=== PATIENT | male | born 1970 | race Caucasian/White ===

== ENCOUNTER 2017-11-06 17:53 | Inpatient (IN) ==
[2017-11-06] MEDS ORDERED: Isovue-370 500 ML INFUS..BTL IV ONE (18:11)
[2017-11-06 18:22] LABS: Basophils # 0.1 K/mcL (0.0-0.2); Basophils % 0.5 %; Eosinophils # 0.2 K/mcL (0.0-0.6); Eosinophils % 2.1 %; Hematocrit 40.6 % (37.5-50.1); Hemoglobin 13.7 g/dL (12.9-16.9); Immature Granulocytes % 0.3 % (0-4); Lymphocytes # 1.9 K/mcL (0.6-4.6); Lymphocytes % 17.9 %; Mean Corpuscular HGB Conc 33.7 g/dL (31.6-35.5); Mean Corpuscular Hemoglobin 30.7 pg (28.0-33.3); Mean Platelet Volume 9.1 fL (9.4-12.4); Monocytes # 0.8 K/mcL (0.0-1.3); Monocytes % 7.3 %; Neutrophils # 7.5 K/mcL (1.6-8.9); Platelet Count 423 K/mcL (140-400); Red Blood Count 4.46 M/mcL (4.19-5.50); Red Cell Distribution Width 11.9 % (11.5-14.5); Segmented Neutrophils % 71.9 %
--- NOTE | 2017-11-06 18:28 | Emergency Department Note ---
Disposition Clinical Impression: Chest pain Qualifiers: Chest pain type: unspecified Qualified Code(s): R07.9 - Chest pain, unspecified Dyspnea Qualifiers: Dyspnea type: unspecified Qualified Code(s): R06.00 - Dyspnea, unspecified Disposition: Still a Patient Condition: Good Referrals: Dali Fried CNP [Primary Care Provider] - Forms: ED Satisfaction Letter Chest Pain HPI - General Chief Complaint: ED Shortness of Breath/Dyspnea Stated Complaint: think I have a clot in my lungs Time Seen by Provider: 11/06/17 18:10 Source: patient Mode of arrival: EMS Limitations: no limitations Vital Signs Reviewed: Yes Nursing Notes Reviewed: Yes - History of Present Illness HPI Narrative: This is a 46 year-old male with 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 The pain began gradually and was mild at first, "like a pulled muscle." The pain has worsened since onset and about 3 hours ago patient became increasingly short of breath. He came in out of concern that his symptoms might be due to another blood clot. He reports a mild cough, productive of clear sputum. He denies any recent feer or leg pain/swelling. He says that he has been on Xarelto since being diagnosed with a PE 03/2016, and he takes it every day. Pt complaint: chest pain Onset (ago): day(s) (1) Duration: gradually worsening Onset: other (during light activity) Severity: moderate Severity scale (1-10): 8 Quality: aching Pain Radiation: none Improves with: nothing Worsens with: nothing Context: history of DVT/PE Associated symptoms: Reports: dyspnea, cough. Denies: nausea, vomiting, diaphoresis, syncope, palpitations, fever, leg swelling - Related Data Previous Rx's Medication Instructions Recorded Clindamycin [Cleocin] 300 mg PO Q8HR #21 capsule 01/08/15 Cyclobenzaprine [Flexeril] 10 mg PO TID PRN #15 tablet 03/16/16 Allergies Allergy/AdvReac Type Severity Reaction Status Date / Time No Known Allergies Allergy Verified 02/16/17 09:05 All systems ED: reviewed and negative except as stated. Constitutional: Denies: fever Cardiovascular: Reports: as per HPI, chest pain. Denies: palpitations, syncope Respiratory: Reports: cough, dyspnea. Denies: wheezes, hemoptysis Gastrointestinal: Denies: abdominal pain Musculoskeletal: Denies: back pain, neck pain Neurological: Denies: headache, weakness, numbness Chest Pain PMH - Past Medical History Medical history: Reports: arthritis, DVT, fibromyalgia, hypertension, pulmonary embolus Surgical history: Reports: cholecystectomy, herniorrhaphy Psychiatric history: Reports: depression - Social History Smoking Status: Never smoker Alcohol use: Reports: none Drug use: Reports: none Physical Exam - General Limitations: no limitations General appearance: alert, anxious, obese - Head Head exam: atraumatic, normocephalic - Eye Eye exam: Present: normal appearance - Neck Neck exam: Present: normal inspection - Chest Chest inspection: Absent: tenderness - Respiratory Respiratory exam: Present: normal lung sounds bilaterally. Absent: respiratory distress, wheezes - Cardiovascular Cardiovascular exam: Present: regular rate, normal rhythm, normal heart sounds - Abdominal Exam Abdominal exam: Present: soft, Non-Tender. Absent: distention - Extremities Exam Extremities exam: Present: normal inspection. Absent: calf tenderness - Neurological Exam Neurological exam: Present: alert, oriented X3. Absent: motor sensory deficit - Psychiatric Psychiatric exam: Present: normal affect, normal mood - Skin Skin exam: Present: warm, dry, intact Course Vital Signs Temperature 98.8 F 11/06/17 17:54 Pulse Rate 103 11/06/17 17:54 Respiratory Rate 22 11/06/17 17:54 Blood Pressure 162/78 11/06/17 17:54 O2 Sat by Pulse Oximetry 95 11/06/17 17:54 Temperature 98.8 F 11/06/17 17:58 Pulse Rate 92 11/06/17 18:30 Respiratory Rate 22 11/06/17 18:30 Blood Pressure 125/90 11/06/17 18:30 O2 Sat by Pulse Oximetry 96 11/06/17 18:30 Oxygen Delivery Oxygen Delivery Nasal Cannula Chest Pain - MDM Narrative Medical decision making narrative: 1899 - At shift change, I'm signing the case over to Dr. Kennedy with CT and most other diagnostics pending. - Lab Data Result diagrams: 11/06/17 18:04 Lab Results 11/06/17 11/06/17 Range/Units 18:04 18:04 WBC 10.5 (4.3-11.1) K/mcL RBC 4.46 (4.19-5.50) M/mcL Hgb 13.7 (12.9-16.9) g/dL Hct 40.6 (37.5-50.1) % MCV 91.0 (83.0-100.0) fL MCH 30.7 (28.0-33.3) pg MCHC 33.7 (31.6-35.5) g/dL RDW 11.9 (11.5-14.5) % Plt Count 423 H (140-400) K/mcL MPV 9.1 L (9.4-12.4) fL Immature Gran % 0.3 (0-4) % Seg Neutrophils % 71.9 % Lymphocytes % 17.9 % Monocytes % 7.3 % Eosinophils % 2.1 % Basophils % 0.5 % Neutrophils # 7.5 (1.6-8.9) K/mcL Lymphocytes # 1.9 (0.6-4.6) K/mcL Monocytes # 0.8 (0.0-1.3) K/mcL Eosinophils # 0.2 (0.0-0.6) K/mcL Basophils # 0.1 (0.0-0.2) K/mcL PT 13.9 H (9.4-12.1) Seconds INR 1.3 APTT 38.2 H (26.0-36.0) Seconds - EKG Data EKG attestation: Yes I reviewed and interpreted this EKG. EKG results narrative: Sinus tach EKG shows normal: sinus rhythm, axis Rate: tachycardia When compared to previous EKG there are: no significant changes (compared to ) Interpretation: nonspecific ST-T wave changes
[2017-11-06 18:34] LABS: INR 1.3; Prothrombin Time 13.9 Seconds (9.4-12.1)
[2017-11-06 18:37] LABS: Activated Partial Thrombo Time 38.2 Seconds (26.0-36.0)
[2017-11-06] MEDS ORDERED: *HR* FentaNYL (PF) 100 MCG/2 ML VIAL IVP ONE ×2 (18:48→20:20)
[2017-11-06 18:49] LABS: BUN/Creatinine Ratio 16 (6-26); Blood Urea Nitrogen 17 mg/dL (6-20); Calcium 9.5 mg/dL (8.6-10.3); Carbon Dioxide 27 mEq/L (23-29); Chloride 103 mEq/L (98-107); Glucose 147 mg/dL (70-105); Osmolality,Calculated 290 (280-300); Potassium 3.8 mEq/L (3.5-5.1); Sodium 138 mEq/L (136-145); Troponin I < 0.03 ng/mL (< 0.04); eGFR For African Americans > 60 (> 60); eGFR For Non-African Americans > 60 (> 60)
--- NOTE | 2017-11-06 20:09 | Emergency Department Note ---
Disposition Clinical Impression: Chest pain Qualifiers: Chest pain type: unspecified Qualified Code(s): R07.9 - Chest pain, unspecified Dyspnea Qualifiers: Dyspnea type: unspecified Qualified Code(s): R06.00 - Dyspnea, unspecified Disposition: Admitted As Inpatient Condition: Good Time of Disposition: 20:27 General Adult HPI - General Chief complaint: ED Shortness of Breath/Dyspnea Stated complaint: think I have a clot in my lungs Time Seen by Provider: 11/06/17 18:10 Source: patient Mode of arrival: EMS Limitations: no limitations Nursing Notes Reviewed: Yes Vital Signs Reviewed: Yes - History of Present Illness HPI Narrative: Patient was signed out by the prior provider. Please see their documentation for complete history and physical. Patient is a 46-year-old male with a history of pulmonary embolism on Xarelto since 2015 presents for evaluation of chest pain. Patient states symptom onset was around 3:30 this afternoon. Patient noted left-sided chest pain nonexertional without radiation. Patient reported difficulty breathing. Patient denies any aggravating or alleviating symptoms related the pain. At the time of signout the patient was rating it a CT angiogram of the chest. Patient states that he started to experience more dyspnea and chest pain upon returning from CT. Patient denies any history of heart attacks or ACS. Patient denies history of home oxygen use. Patient denies any cough. Patient denies any notable fevers. Pain Scale: 8 - Related Data Home Medications Medication Instructions Recorded Confirmed DULoxetine [Cymbalta] 60 mg PO DAILY 11/06/17 11/06/17 HYDROcodone/Acet 5/325 mg [[place] 1 tab PO Q6H 11/06/17 11/06/17 5-325 mg] Hydrochlorothiazide [Microzide] 12.5 mg PO DAILY 11/06/17 11/06/17 Lisinopril [Zestril] 20 mg PO DAILY 11/06/17 11/06/17 Nortriptyline HCl 50 mg PO DAILY 11/06/17 11/06/17 Pravastatin Sodium [Pravachol] 20 mg PO HS 11/06/17 11/06/17 Rivaroxaban [Xarelto] 20 mg PO DAILY 11/06/17 11/06/17 metFORMIN [Glucophage] 500 mg PO DAILY 11/06/17 11/06/17 Allergies Allergy/AdvReac Type Severity Reaction Status Date / Time No Known Allergies Allergy Verified 11/06/17 20:33 Constitutional: Denies: fever Cardiovascular: Reports: as per HPI, chest pain. Denies: palpitations, syncope Respiratory: Reports: cough, dyspnea. Denies: wheezes, hemoptysis Gastrointestinal: Denies: abdominal pain Musculoskeletal: Denies: back pain, neck pain Neurological: Denies: headache, weakness, numbness Past Medical History - Past Medical History Medical history: Reports: arthritis, DVT, fibromyalgia, hypertension, pulmonary embolus Surgical history: Reports: cholecystectomy, herniorrhaphy Psychiatric history: Reports: depression - Social History Smoking Status: Never smoker Smokeless Tobacco Status: No Alcohol use: Reports: none Drug use: Reports: none Physical Exam - General Limitations: no limitations General appearance: alert, anxious, obese - Head Head exam: atraumatic, normocephalic, normal inspection - Eye Eye exam: Present: normal appearance - ENT ENT exam: normal exam, normal oropharynx, mucous membranes moist - Neck Neck exam: Present: normal inspection - Chest Chest inspection: Present: normal inspection, symmetric chest wall rise. Absent : tenderness - Respiratory Respiratory exam: Present: other (Diffusely diminished lung sounds throughout). Absent: respiratory distress - Cardiovascular Cardiovascular exam: Present: normal rhythm, tachycardia. Absent: systolic murmur - Abdominal Exam Abdominal exam: Present: soft, Non-Tender - Extremities Exam Extremities exam: Present: normal inspection, pedal edema (trace) - Back Exam Back exam: Present: normal inspection - Neurological Exam Neurological exam: Present: alert, oriented X3, CN II-XII intact - Skin Skin exam: Present: warm, dry, intact, normal color Course Course Narrative: Patient seen and examined. Patient appears be quite anxious tachypnea. Patient also is tachycardic. Patient CTA of the chest shows no evidence of central pulmonary embolism however the patient study was suboptimal. Patient is on Xarelto. Patient will get a repeat EKG. Patient will likely be admitted to the hospital service for chest pain ACS rule out and further testing for pulmonary embolism. - Reevaluation(s) Reevaluation #1: Patient received 2 nitro and pain decreased to 10-8/10. Repeat EKG is relatively similar. Time: 20:46 Reevaluation #2: Patient is not able to lie flat for his VQ scan. Time: 21:32 Reevaluation #3: Patient seen and examined. Patient's aware of plan of care. Patient's continued be tachycardic. Patient is on Xarelto so secondary anticoagulation was not ordered. Time: 22:32 Vital Signs Temperature 98.8 F 11/06/17 17:54 Pulse Rate 103 11/06/17 17:54 Respiratory Rate 22 11/06/17 17:54 Blood Pressure 162/78 11/06/17 17:54 O2 Sat by Pulse Oximetry 95 11/06/17 17:54 Temperature 98.8 F 11/06/17 17:58 Pulse Rate 125 11/06/17 22:07 Respiratory Rate 25 11/06/17 22:07 Blood Pressure 103/85 11/06/17 22:07 O2 Sat by Pulse Oximetry 97 11/06/17 22:07 Oxygen Delivery Oxygen Delivery Nasal Cannula Medical Decision Making - MDM Narrative Medical decision making narrative: Patient was signed out by the prior provider. Patient is a 46-year-old history of PE in the past on Xarelto. Patient presented with chest pain and dyspnea. Patient CTA of the chest was suboptimal. Patient did not have a central PE patient states that he is continued to be compliant with his Xarelto. Attempted VQ scan over the patient cannot lay flat for that period of time to the study obtained. Patient remained persistently tachycardic. Patient was given nitroglycerin with only mild relief in the pain. Patient was given fentanyl. Patient would likely benefit from observation with serial troponins. Patient was not given any additional anticoagulation as he is on Xarelto. Patient is agreeable with plan of care. Patient's serial EKGs show no acute significant changes. - Lab Data Lab results reviewed: Yes I reviewed the patient's lab results. Result diagrams: 11/06/17 18:04 11/06/17 18:04 Lab Results 11/06/17 11/06/17 11/06/17 Range/Units 18:04 18:04 18:04 WBC 10.5 (4.3-11.1) K/mcL RBC 4.46 (4.19-5.50) M/mcL Hgb 13.7 (12.9-16.9) g/dL Hct 40.6 (37.5-50.1) % MCV 91.0 (83.0-100.0) fL MCH 30.7 (28.0-33.3) pg MCHC 33.7 (31.6-35.5) g/dL RDW 11.9 (11.5-14.5) % Plt Count 423 H (140-400) K/mcL MPV 9.1 L (9.4-12.4) fL Immature Gran % 0.3 (0-4) % Seg Neutrophils % 71.9 % Lymphocytes % 17.9 % Monocytes % 7.3 % Eosinophils % 2.1 % Basophils % 0.5 % Neutrophils # 7.5 (1.6-8.9) K/mcL Lymphocytes # 1.9 (0.6-4.6) K/mcL Monocytes # 0.8 (0.0-1.3) K/mcL Eosinophils # 0.2 (0.0-0.6) K/mcL Basophils # 0.1 (0.0-0.2) K/mcL PT 13.9 H (9.4-12.1) Seconds INR 1.3 APTT 38.2 H (26.0-36.0) Seconds Sample Site ABG pH (7.32-7.45) pH Units ABG pCO2 (35-45) mmHg ABG pO2 (85-104) mmHg ABG HCO3 (21-27) mEq/L ABG Total CO2 (20-26) mEq/L ABG O2 Saturation (95-98) % ABG Base Excess (-2 to 3) mEq/L Angel Test O2 Delivery Device Inspired O2 (1-15=lpm [id number]=%) Sodium 138 (136-145) mEq/L Potassium 3.8 (3.5-5.1) mEq/L Chloride 103 (98-107) mEq/L Carbon Dioxide 27 (23-29) mEq/L BUN 17 (6-20) mg/dL Creatinine 1.06 (0.70-1.30) mg/dL Est GFR ( Amer) > 60 (> 60) Est GFR (Non-Af Amer) > 60 (> 60) BUN/Creatinine Ratio 16 (6-26) Glucose 147 H (70-105) mg/dL Calculated Osmolality 290 (280-300) Lactic Acid (0.5-2.2) mmol/L Calcium 9.5 (8.6-10.3) mg/dL Troponin I < 0.03 (< 0.04) ng/mL B-Natriuretic Peptide (Less than 100) pg/mL 11/06/17 11/06/17 11/06/17 Range/Units 18:04 18:34 21:50 WBC (4.3-11.1) K/mcL RBC (4.19-5.50) M/mcL Hgb (12.9-16.9) g/dL Hct (37.5-50.1) % MCV (83.0-100.0) fL MCH (28.0-33.3) pg MCHC (31.6-35.5) g/dL RDW (11.5-14.5) % Plt Count (140-400) K/mcL MPV (9.4-12.4) fL Immature Gran % (0-4) % Seg Neutrophils % % Lymphocytes % % Monocytes % % Eosinophils % % Basophils % % Neutrophils # (1.6-8.9) K/mcL Lymphocytes # (0.6-4.6) K/mcL Monocytes # (0.0-1.3) K/mcL Eosinophils # (0.0-0.6) K/mcL Basophils # (0.0-0.2) K/mcL PT (9.4-12.1) Seconds INR APTT (26.0-36.0) Seconds Sample Site L Radial ABG pH 7.35 (7.32-7.45) pH Units ABG pCO2 38 (35-45) mmHg ABG pO2 75 L (85-104) mmHg ABG HCO3 21 (21-27) mEq/L ABG Total CO2 22 (20-26) mEq/L ABG O2 Saturation 94 L (95-98) % ABG Base Excess -4 L (-2 to 3) mEq/L Angel Test Positive O2 Delivery Device Cannula Inspired O2 4.0 (1-15=lpm [id number]=%) Sodium (136-145) mEq/L Potassium (3.5-5.1) mEq/L Chloride (98-107) mEq/L Carbon Dioxide (23-29) mEq/L BUN (6-20) mg/dL Creatinine (0.70-1.30) mg/dL Est GFR ( Amer) (> 60) Est GFR (Non-Af Amer) (> 60) BUN/Creatinine Ratio (6-26) Glucose (70-105) mg/dL Calculated Osmolality (280-300) Lactic Acid 1.2 (0.5-2.2) mmol/L Calcium (8.6-10.3) mg/dL Troponin I (< 0.04) ng/mL B-Natriuretic Peptide 49 (Less than 100) pg/mL - Radiology Data Radiology results reviewed: Yes I reviewed the patient's radiology results. Chest CTA 11/06/17 18:11 IMPRESSION: Examination is significantly limited as result suboptimal contrast bolus, despite repeat acquisition. No central pulmonary embolism identified. No convincing evidence for right heart strain or pulmonary infarction. If there is persistent clinical suspicion for PE, further evaluation with V/Q scan can be considered as clinically indicated. Small to moderate left pleural effusion with adjacent atelectasis. D/ / Tesfaye Moore MD / Tesfaye Moore MD Interpreting Provider: Tesfaye Moore MD - EKG Data EKG #1 EKG attestation: Yes I reviewed and interpreted this EKG. EKG shows normal: sinus rhythm Rate: tachycardia Rhythm: NSR [place]/QRS: normal Interpretation: no acute changes, nonspecific ST-T wave changes EKG #2 EKG attestation: Yes I reviewed and interpreted this EKG. EKG shows normal: sinus rhythm Rate: tachycardia [place]/QRS: normal ST segment depression in: v4 Interpretation: no acute changes, nonspecific ST-T wave changes S.B.AValentina - Toby.B.ATravRTrav Situation: Demographics Background: Presenting Complaint Assessment: Vital Signs, Course and respsone to treatment, Patient/Family Expectation Recommendation: Barrier(s) to disposition, Recommendation based on pending studies, treatments, or consults S.B.AValentina Report Given to: Dr. Juan Manuel Kirby Repor Time: 22:06
[2017-11-06] MEDS ORDERED: Aspirin 81 MG TAB.CHEW PO ONE (20:22)
[2017-11-06] MEDS ORDERED: 0.9 % Sodium Chloride 1,000 ML IVC ONE (20:22)
[2017-11-06] MEDS ORDERED: Nitroglycerin 0.4 MG TAB.SUBL SL ONE (20:22)
[2017-11-06] MEDS: Nitroglycerin 0.4 MG TAB.SUBL SL PRN ×2 (20:29→20:37)
[2017-11-06 21:53] LABS: ABG Base Excess -4 mEq/L (-2 to 3); ABG HCO3 21 mEq/L (21-27); ABG Oxygen Saturation 94 % (95-98); ABG PCO2 38 mmHg (35-45); ABG PH 7.35 pH Units (7.32-7.45); ABG PO2 75 mmHg (85-104); ABG TCO2 22 mEq/L (20-26)
--- NOTE | 2017-11-06 22:23 | Emergency Department Note ---
Disposition Clinical Impression: Chest pain Qualifiers: Chest pain type: unspecified Qualified Code(s): R07.9 - Chest pain, unspecified Dyspnea Qualifiers: Dyspnea type: unspecified Qualified Code(s): R06.00 - Dyspnea, unspecified Disposition: Admitted As Inpatient Condition: Good Referrals: Dali Fried CNP [Primary Care Provider] - Forms: ED Satisfaction Letter General Adult HPI - General Chief complaint: ED Shortness of Breath/Dyspnea Stated complaint: think I have a clot in my lungs Time Seen by Provider: 11/06/17 18:10 Source: patient Mode of arrival: EMS Limitations: no limitations Nursing Notes Reviewed: Yes Vital Signs Reviewed: Yes - History of Present Illness Pain Scale: 8 - Related Data Home Medications Medication Instructions Recorded Confirmed DULoxetine [Cymbalta] 60 mg PO DAILY 11/06/17 11/06/17 HYDROcodone/Acet 5/325 mg [[place] 1 tab PO Q6H 11/06/17 11/06/17 5-325 mg] Hydrochlorothiazide [Microzide] 12.5 mg PO DAILY 11/06/17 11/06/17 Lisinopril [Zestril] 20 mg PO DAILY 11/06/17 11/06/17 Nortriptyline HCl 50 mg PO DAILY 11/06/17 11/06/17 Pravastatin Sodium [Pravachol] 20 mg PO HS 11/06/17 11/06/17 Rivaroxaban [Xarelto] 20 mg PO DAILY 11/06/17 11/06/17 metFORMIN [Glucophage] 500 mg PO DAILY 11/06/17 11/06/17 Allergies Allergy/AdvReac Type Severity Reaction Status Date / Time No Known Allergies Allergy Verified 11/06/17 20:33 Constitutional: Denies: fever Cardiovascular: Reports: as per HPI, chest pain. Denies: palpitations, syncope Respiratory: Reports: cough, dyspnea. Denies: wheezes, hemoptysis Gastrointestinal: Denies: abdominal pain Musculoskeletal: Denies: back pain, neck pain Neurological: Denies: headache, weakness, numbness Past Medical History - Past Medical History Medical history: Reports: arthritis, DVT, fibromyalgia, hypertension, pulmonary embolus Surgical history: Reports: cholecystectomy, herniorrhaphy Psychiatric history: Reports: depression - Social History Smoking Status: Never smoker Smokeless Tobacco Status: No Alcohol use: Reports: none Drug use: Reports: none Physical Exam - General Limitations: no limitations General appearance: alert, anxious, obese Course Vital Signs Temperature 98.8 F 11/06/17 17:54 Pulse Rate 103 11/06/17 17:54 Respiratory Rate 22 11/06/17 17:54 Blood Pressure 162/78 11/06/17 17:54 O2 Sat by Pulse Oximetry 95 11/06/17 17:54 Temperature 98.8 F 11/06/17 17:58 Pulse Rate 125 11/06/17 22:07 Respiratory Rate 25 11/06/17 22:07 Blood Pressure 103/85 11/06/17 22:07 O2 Sat by Pulse Oximetry 97 11/06/17 22:07 Oxygen Delivery Oxygen Delivery Nasal Cannula Medical Decision Making - Lab Data Result diagrams: 11/06/17 18:04 11/06/17 18:04 Lab Results 11/06/17 11/06/17 11/06/17 Range/Units 18:04 18:04 18:04 WBC 10.5 (4.3-11.1) K/mcL RBC 4.46 (4.19-5.50) M/mcL Hgb 13.7 (12.9-16.9) g/dL Hct 40.6 (37.5-50.1) % MCV 91.0 (83.0-100.0) fL MCH 30.7 (28.0-33.3) pg MCHC 33.7 (31.6-35.5) g/dL RDW 11.9 (11.5-14.5) % Plt Count 423 H (140-400) K/mcL MPV 9.1 L (9.4-12.4) fL Immature Gran % 0.3 (0-4) % Seg Neutrophils % 71.9 % Lymphocytes % 17.9 % Monocytes % 7.3 % Eosinophils % 2.1 % Basophils % 0.5 % Neutrophils # 7.5 (1.6-8.9) K/mcL Lymphocytes # 1.9 (0.6-4.6) K/mcL Monocytes # 0.8 (0.0-1.3) K/mcL Eosinophils # 0.2 (0.0-0.6) K/mcL Basophils # 0.1 (0.0-0.2) K/mcL PT 13.9 H (9.4-12.1) Seconds INR 1.3 APTT 38.2 H (26.0-36.0) Seconds Sample Site ABG pH (7.32-7.45) pH Units ABG pCO2 (35-45) mmHg ABG pO2 (85-104) mmHg ABG HCO3 (21-27) mEq/L ABG Total CO2 (20-26) mEq/L ABG O2 Saturation (95-98) % ABG Base Excess (-2 to 3) mEq/L Angel Test O2 Delivery Device Inspired O2 (1-15=lpm [id number]=%) Sodium 138 (136-145) mEq/L Potassium 3.8 (3.5-5.1) mEq/L Chloride 103 (98-107) mEq/L Carbon Dioxide 27 (23-29) mEq/L BUN 17 (6-20) mg/dL Creatinine 1.06 (0.70-1.30) mg/dL Est GFR ( Amer) > 60 (> 60) Est GFR (Non-Af Amer) > 60 (> 60) BUN/Creatinine Ratio 16 (6-26) Glucose 147 H (70-105) mg/dL Calculated Osmolality 290 (280-300) Lactic Acid (0.5-2.2) mmol/L Calcium 9.5 (8.6-10.3) mg/dL Troponin I < 0.03 (< 0.04) ng/mL B-Natriuretic Peptide (Less than 100) pg/mL 11/06/17 11/06/17 11/06/17 Range/Units 18:04 18:34 21:50 WBC (4.3-11.1) K/mcL RBC (4.19-5.50) M/mcL Hgb (12.9-16.9) g/dL Hct (37.5-50.1) % MCV (83.0-100.0) fL MCH (28.0-33.3) pg MCHC (31.6-35.5) g/dL RDW (11.5-14.5) % Plt Count (140-400) K/mcL MPV (9.4-12.4) fL Immature Gran % (0-4) % Seg Neutrophils % % Lymphocytes % % Monocytes % % Eosinophils % % Basophils % % Neutrophils # (1.6-8.9) K/mcL Lymphocytes # (0.6-4.6) K/mcL Monocytes # (0.0-1.3) K/mcL Eosinophils # (0.0-0.6) K/mcL Basophils # (0.0-0.2) K/mcL PT (9.4-12.1) Seconds INR APTT (26.0-36.0) Seconds Sample Site L Radial ABG pH 7.35 (7.32-7.45) pH Units ABG pCO2 38 (35-45) mmHg ABG pO2 75 L (85-104) mmHg ABG HCO3 21 (21-27) mEq/L ABG Total CO2 22 (20-26) mEq/L ABG O2 Saturation 94 L (95-98) % ABG Base Excess -4 L (-2 to 3) mEq/L Angel Test Positive O2 Delivery Device Cannula Inspired O2 4.0 (1-15=lpm [id number]=%) Sodium (136-145) mEq/L Potassium (3.5-5.1) mEq/L Chloride (98-107) mEq/L Carbon Dioxide (23-29) mEq/L BUN (6-20) mg/dL Creatinine (0.70-1.30) mg/dL Est GFR ( Amer) (> 60) Est GFR (Non-Af Amer) (> 60) BUN/Creatinine Ratio (6-26) Glucose (70-105) mg/dL Calculated Osmolality (280-300) Lactic Acid 1.2 (0.5-2.2) mmol/L Calcium (8.6-10.3) mg/dL Troponin I (< 0.04) ng/mL B-Natriuretic Peptide 49 (Less than 100) pg/mL Attestation Statement - Attestation Attestation: I, Nate Kennedy MD, personally evaluated this patient and discussed their management with the resident physician. I reviewed the resident's note and agree with the documented findings, medical decision making, and plan of care. This patient was signed out at shift change from Dr. Florian. Please refer to his note for complete details of the history and physical examination. Patient is a morbidly obese male with a history of pulmonary embolism in the past. He is on Xarelto. He presents complaining of onset of some left upper chest pain about 3 PM today followed by increased shortness of breath. No cough or fever. Patient states this feels similar to when he had his pulmonary embolism in the past. On examination patient is a morbidly obese male in no acute distress. He does appear to be in some discomfort and is tachypneic. There is no cyanosis or diaphoresis. Chest is nontender to palpation. Breath sounds are clear and equal bilaterally. Heart regular with a mild tachycardia. Labs reviewed. CTA of the chest showed: Examination is significantly limited as result suboptimal contrast bolus, despite repeat acquisition. No central pulmonary embolism identified. No convincing evidence for right heart strain or pulmonary infarction. If there is persistent clinical suspicion for PE, further evaluation with V/Q scan can be considered as clinically indicated. Small to moderate left pleural effusion with adjacent atelectasis. We did attempt to obtain a VQ scan however nuclear medicine reported patient was totally unable to lie flat for the exam and they were unable to obtain a VQ scan. The hospitalist, Dr. Zambrano, was consulted and accepted admission of the patient.
[2017-11-06] MEDS ORDERED: D5% in Water 1,000 ML IVC PRN (23:06)
[2017-11-06] MEDS ORDERED: Dextrose Gel 15 GM/37.5 ML TUBE PO PRN ×2 (23:06)
[2017-11-06] MEDS ORDERED: *HR* Dextrose 50 % in Water (Syg) 50 ML SYRINGE IVP PRN (23:06)
--- NOTE | 2017-11-06 23:12 | Internal Med History&Physical ---
Date of Encounter: 11/07/17 Time of Encounter: 23:10 Internal Medicine - H&P: HPI Chief complaint: Chest pain Admitted From: Emergency Dept Plans for Post Hospital Care: Home History of present illness: Mr. Mckinley is a 46 year old male with history of diabetes, hypertension, morbid obesity, DVT and PE on Xarelto, chronic pain due to fibromyalgia, arthritis presents with left-sided chest pain that started earlier this evening. He feels like it is pain that he had Past PE. Describes it as squeezing. He has become increasingly short of breath. Chest pain is not radiating. He says he was with his nephew in the gym as he is trying hard to lose weight. He did about .2 miles on a treadmill then got on a stationary bike and did half a mile. He had no chest pain then. He went home and was doing laundry and then the chest pain started. He has not missed his Xarelto. In the ED was noted to be tachycardic. O2 sats were in the low 90s and was put on supplemental oxygen. EKG showed sinus tachycardia but no acute ST or T-wave changes and troponins were not elevated. Denies any fever, chills, nausea, vomiting, abdominal pain, diarrhea, constipation, urinary symptoms, or neurological symptoms. The patient received fentanyl pushes as well as aspirin 324 mg and sublingual nitroglycerin. A CTA of the chest was done which was suboptimal study. He had a DVT in 2000 and in 2016 had a PE which required thrombolysis at [facility]. Past Med Surg Social Fam HX - Past Medical History Medical history: arthritis, DVT, fibromyalgia, hypertension, pulmonary embolus Psychiatric history: depression - Past Surgical History Surgical History: cholecystectomy, herniorrhaphy Additional surgical history: catherization to remove blood clot - Social History Smoking Status: Never smoker Smokeless Tobacco Status: No Alcohol use: none Drug use: none - Family History Mother Hx Family Cardiac Disorders: Yes (CHF) Hx Family Endocrine Disorder: Yes (Type 2 diabetes) Father Hx Family Cardiac Disorders: Yes (CHF) Hx Family Endocrine Disorder: Yes (Type 2 diabetic) Internal Medicine - H&P: Meds DULoxetine [Cymbalta] 60 mg PO DAILY 11/06/17 [History] HYDROcodone/Acet 5/325 mg [Crooks 5-325 mg] 1 tab PO Q6H 11/06/17 [History] Hydrochlorothiazide [Microzide] 12.5 mg PO DAILY 11/06/17 [History] Lisinopril [Zestril] 20 mg PO DAILY 11/06/17 [History] Nortriptyline HCl 50 mg PO DAILY 11/06/17 [History] Pravastatin Sodium [Pravachol] 20 mg PO HS 11/06/17 [History] Rivaroxaban [Xarelto] 20 mg PO DAILY 11/06/17 [History] metFORMIN [Glucophage] 500 mg PO DAILY 11/06/17 [History] 3 Allergy/AdvReac Type Severity Reaction Status Date / Time No Known Allergies Allergy Verified 11/06/17 20:33 All Systems PM: A 10-system review of systems was performed and is negative for pertinent findings except as documented above in the HPI. Review of systems: All systems reviewed are negative except for as mentioned above - Constitutional Vitals: Temp Pulse Resp BP Pulse Ox 98.8 F 127 20 103/87 96 11/06/17 17:58 11/06/17 22:46 11/06/17 22:46 11/06/17 22:46 11/06/17 22:46 Exam: GEN: NAD HEENT: AT, NC, No cyanosis, oral mucosa is moist, No JVD Lymphatics: No lymphadenoapthy Eyes: Extrocular muscles intact, anicteric CVS: Tachycardic. S1, S2, No m/r/g RESP: CTAB ABD: Soft, NT, ND, +BS EXT: No edema, No rashes, 2+ DP NEURO: Nonfocal, CN II-XII intact, No focal motor or sensory deficits Psych: Cooperative, Not anxious or depressed Internal Med - H&P Results - Labs CBC & Chem 7: 11/06/17 18:04 11/06/17 18:04 - Assessment and plan (1) Chest pain Current Visit: Yes Status: Acute Assessment and plan: Admit to hospitalist. We will place on telemetry. Trend cardiac enzymes. We will put in for stress test tomorrow. After midnight. Check A1c and lipid panel. The patient is ready been given aspirin 324 mg. Sublingual nitroglycerin when necessary. Qualifiers: Chest pain type: unspecified Qualified Code(s): R07.9 - Chest pain, unspecified (2) Tachycardia Current Visit: Yes Status: Acute Assessment and plan: This is associated with chest pain, shortness of breath, mild hypoxia. The worry is a possible PE although the patient is on Xarelto, however the patient is obese and the concern is that dose may not be enough given his weight. For now CTA could not rule out a PE as it was suboptimal. Will check D dimers and if it comes back elevated we will check a VQ scan and lower extremity Dopplers. Will put the patient empirically on 1mg/kg of lovenox BID till we have his work up completed. Hold Xarelto for now. Patient maybe better suited with coumadin in the future. Check an echocardiogram. Could be secondary to pain and anxiety. Will try to have better pain control and we will give him a dose of 1 mg of Ativan. This is copied from [employer]: In patients with a BMI >40 kg/m2 or weight >120 kg, the International Society on Thrombosis and Haemostasis (ISTH) 2016 guideline suggests avoiding the use of rivaroxaban (and other direct oral anticoagulants [DOACs]) due to the lack of clinical data in this population (ISTH [Nitish 2016]). A 2017 review concluded, based on pharmacokinetic data, that for individuals with a BMI >40 kg /m2 (or weight >120 kg), rivaroxaban may be used and dosage adjustment is not necessary; however, studies were not powered to address outcomes. If used in a patient with a BMI >40 kg/m2 or weight >120 kg, ISTH suggests measuring peak and trough levels using an anti-factor Xa assay or mass spectrometry. If drug level is below the expected range, ISTH suggests changing to a vitamin K antagonist rather than adjusting the dose of rivaroxaban. (3) Dyspnea Current Visit: Yes Status: Acute Assessment and plan: As above Qualifiers: Dyspnea type: unspecified Qualified Code(s): R06.00 - Dyspnea, unspecified (4) H/O deep venous thrombosis Current Visit: Yes Status: Acute Assessment and plan: hold Xarelto for now. Check D dimers as above. start therapeutic lovenox (5) Diabetes mellitus Current Visit: Yes Status: Acute Assessment and plan: We will place patient on insulin size scale. Accu-Cheks. Qualifiers: Diabetes mellitus type: type 2 Diabetes mellitus ferry terminal agent insulin use: without ferry terminal agent use Diabetes mellitus complication status: without complication Qualified Code(s): E11.9 - Type 2 diabetes mellitus without complications (6) Hypertension Current Visit: Yes Status: Acute Assessment and plan: Resume home antihypertensives. Qualifiers: Hypertension type: essential hypertension Qualified Code(s): I10 - Essential (primary) hypertension (7) DVT prophylaxis Current Visit: Yes Status: Acute Assessment and plan: lovenox - Time Spent With Patient Total time spent is greater than 50% in coordination of care (as documented) at patient's floor/unit and/or counseling patient:
[2017-11-06] MEDS ORDERED: *HR* LORazepam 2 MG/ML VIAL IVP ONE (23:13)
[2017-11-06] MEDS ORDERED: Acetaminophen 325 MG TABLET PO PRN (23:16)
[2017-11-06] MEDS ORDERED: Naloxone 0.4 MG/ML INJ IVP PRN (23:16)
[2017-11-07] MEDS ORDERED: *HR* FentaNYL (PF) 100 MCG/2 ML VIAL IVP ONE (01:18)
[2017-11-07] MEDS: Insulin LISPRO 300 UNITS/3 ML VIAL SQ SCH ×5 (01:46→22:21)
[2017-11-07] MEDS: *HR* Enoxaparin 100 MG/ML SYRINGE SQ SCH ×2 (01:52→15:20)
[2017-11-07] MEDS ORDERED: Ketorolac 30 MG/ML VIAL IVP ONE (03:56)
--- NOTE | 2017-11-07 04:44 | Event Note ---
Date of Encounter: 11/07/17 Time of Encounter: 04:41 D-dimers are elevated. I have elected to cancel his stress test for now and treat him as a PE until proven otherwise. Pending V/Q and LE dopplers. Patient continues to be tachycardic and short of breath needing O2. He also has a temp of 100.7 but no signs of an infection. Temp could be from a DVT/PE. Will add a UA, CXR, Blood cultures. His CTA didnt show infiltrate, but showed a moderate left pleural effusion. Didnt diurese because the patient is starting to show signs of hypotension. I actually ordered him a bolus for now and start some hydration since he received some contrast earlier. A stress test can be ordered for Thursday if PE is ruled out. A V/Q may not be the best study for him given his weight and he may need a repeat of CTA in a couple of days if a V/Q is not diagnostic. No abx ordered for now as there is no source. Low threshold to starting abx as I believe the patient is showing signs of a septic picture now.
[2017-11-07] MEDS ORDERED: 0.9 % Sodium Chloride 1,000 ML IVC SCH (04:45)
[2017-11-07 05:12] LABS: Basophils % 0.2 %
[2017-11-07 05:14] LABS: Basophils # 0.1 K/mcL (0.0-0.2); Hematocrit 41.7 % (37.5-50.1); Hemoglobin 14.2 g/dL (12.9-16.9); Immature Granulocytes % 0.4 % (0-4); Lymphocytes % 3.6 %; Mean Corpuscular HGB Conc 34.1 g/dL (31.6-35.5); Mean Corpuscular Hemoglobin 30.6 pg (28.0-33.3); Mean Corpuscular Volume 89.9 fL (83.0-100.0); Monocytes # 1.9 K/mcL (0.0-1.3); Monocytes % 6.9 %; Neutrophils # 24.4 K/mcL (1.6-8.9); Platelet Count 443 K/mcL (140-400); Red Blood Count 4.64 M/mcL (4.19-5.50); Red Cell Distribution Width 12.2 % (11.5-14.5); Segmented Neutrophils % 88.9 %
[2017-11-07 05:32] LABS: Platelet Estimate Increased (Normal)
[2017-11-07 05:41] LABS: Chol/HDL Ratio 4.4 (0-4.9); Magnesium 1.8 mg/dL (1.6-2.6); Potassium 4.8 mEq/L (3.5-5.1)
[2017-11-07 05:44] LABS: Thyroid Stimulating Hormone 2.649 mcIU/mL (0.340-5.600)
[2017-11-07] MEDS ORDERED: 0.9 % Sodium Chloride 1,000 ML IVC ONE (06:40)
[2017-11-07 07:11] LABS: Albumin 3.8 g/dL (3.5-5.7); Albumin/Globulin Ratio 1.2 (1.1-2.2); Bilirubin,Direct 0.2 mg/dL (0.0-0.2); Bilirubin,Indirect 0.9 mg/dL (0.0-1.2); Bilirubin,Total 1.1 mg/dL (0.3-1.0); Globulin 3.3 g/dL (2.4-3.5); Total Protein 7.1 g/dL (6.4-8.9)
[2017-11-07] MEDS ORDERED: Piperacillin/Tazobactam 4.5 GM in 0.9 % Sodium Chloride Mini Bag 100 ML IVPB ONE (07:41)
[2017-11-07] MEDS ORDERED: Dextrose Gel 15 GM/37.5 ML TUBE PO PRN ×2 (07:42)
[2017-11-07] MEDS ORDERED: D5% in Water 1,000 ML IVC PRN (07:42)
[2017-11-07] MEDS ORDERED: *HR* Dextrose 50 % in Water (Syg) 50 ML SYRINGE IVP PRN (07:42)
--- NOTE | 2017-11-07 07:54 | Internal Med Progress Note ---
Date of Encounter: 11/07/17 Time of Encounter: 07:45 - Assessment and plan (1) Sepsis Current Visit: Yes Status: Acute Assessment and plan: , source unmkown, with leukocytosis, fever and tachycardia, hypotension, BC UA CXR josephine dey vancomycina nd zosyn Qualifiers: Sepsis type: sepsis due to unspecified organism Qualified Code(s): A41.9 - Sepsis, unspecified organism (2) Acute and chronic respiratory failure with hypoxia Current Visit: Yes Status: Acute Assessment and plan: Hypoxia RR 25, on 5 L NC, patient has JUAN, but mnot on CPAP due to intolerance, may need CPAP at night (3) Morbid obesity Current Visit: Yes Status: Chronic (4) ARF (acute renal failure) Current Visit: Yes Status: Acute Assessment and plan: from sepsis , on IVF Qualifiers: Acute renal failure type: with other specified pathological lesion Qualified Code(s): N17.8 - Other acute kidney failure (5) Chest pain Current Visit: Yes Status: Acute Assessment and plan: follow up trop, TTE, stress test after sepsis resolves Qualifiers: Chest pain type: unspecified Qualified Code(s): R07.9 - Chest pain, unspecified (6) H/O deep venous thrombosis Current Visit: Yes Status: Chronic Assessment and plan: elevated d-dimer, CTA negative for central PE, continue lovenox for now, he was on Xarelto at home. pending duplex of legs, if his DVT is positive, then consider change to Coumadin due to his BMI (7) Diabetes mellitus Current Visit: Yes Status: Acute Assessment and plan: continue home meds Qualifiers: Diabetes mellitus type: type 2 Diabetes mellitus fci insulin use: without intermediate frame tender use Diabetes mellitus complication status: without complication Qualified Code(s): E11.9 - Type 2 diabetes mellitus without complications (8) Hypertension Current Visit: Yes Status: Acute Assessment and plan: hold home meds fir sepsis Qualifiers: Hypertension type: essential hypertension Qualified Code(s): I10 - Essential (primary) hypertension (9) DVT prophylaxis Current Visit: Yes Status: Acute Assessment and plan: on lovenox - Time Spent With Patient Total time spent is greater than 50% in coordination of care (as documented) at patient's floor/unit and/or counseling patient: Greater than 35 minutes - Subjective Interval history: Mr. Mckinley is a 46 year old male with history of diabetes, hypertension, morbid obesity, DVT and PE on Xarelto, chronic pain due to fibromyalgia, arthritis presents with left-sided chest pain that started earlier this evening. He feels like it is pain that he had Past PE. Describes it as squeezing. He has become increasingly short of breath. pol[place] was admitted for on 11/06, chest pain, negative trop and EKG, but elevated D-dmier, CTA was negative for central PE. ON patient developed fever and leukocytosis, septic with hypotension, hypoxia, ARF. 1. Sepsis, source unknown, will obtain 2 sets of cultute, UA and CXR, start broad coerage of ATB with Vanco and zosyn, hold BP meds 2. Acute hypolxic respiratory failure requiring 5 L NC Sat 92% 3. ARF Cr 1.85 on IVF, no NSAIDs 4. morbid obesity 5. hx of PE, pending duplex, contineu lovenox bridge 6. fibromyagia 7. chest pain - Constitutional Vitals: Temp Pulse Resp BP Pulse Ox 101.8 F H 92 19 131/105 99 11/07/17 07:40 11/07/17 07:40 11/07/17 07:40 11/07/17 07:40 11/07/17 07:40 General appearance: Present: mild distress, A&O X 3, morbidly obese, obese, answers questions appropriately Exam: CONSTITUTIONAL: patient appears as an age appropriate male in no acute distress. EYES Clear sclerae, bilateral pupils are equal, reactive to light. EMOI. RESPIRATORY: No accessory muscle use, bilateral clear to auscultation, no wheezing, no crackles/rales. CARDIOVASCULAR: Regular heart rate, normal S1 and S2, no murmurs GASTROINTESTINAL: bowel sounds present, soft, no tenderness. MUSCULOSKELETAL: Joints in normal range of motion, no clubbing, + edema, no cyanosis. Bilateral peripheral pulses 2+. NEUROLOGIC: CN II to XII are grossly intact, no focal neurological deficit. Internal Medicine: Result - Labs CBC & Chem 7: 11/07/17 04:58 11/07/17 04:58 Labs: Short CBC 11/07/17 Range/Units 04:58 WBC 27.4 H D (4.3-11.1) K/mcL Hgb 14.2 (12.9-16.9) g/dL Hct 41.7 (37.5-50.1) % Plt Count 443 H (140-400) K/mcL Neutrophils # 24.4 H (1.6-8.9) K/mcL BMP 11/07/17 04:58 Sodium 133 L Potassium 4.8 D Chloride 103 Carbon Dioxide 19 L BUN 25 H Creatinine 1.85 H Glucose 237 H Calcium 9.0 Cardiac Enzymes 11/07/17 11/07/17 Range/Units 00:09 04:58 Troponin I < 0.03 < 0.03 (< 0.04) ng/mL Liver Function 11/07/17 Range/Units 04:58 Total Bilirubin 1.1 H (0.3-1.0) mg/dL Direct Bilirubin 0.2 (0.0-0.2) mg/dL AST 25 (13-39) Units/L ALT 18 (7-52) Units/L Alkaline Phosphatase 47 (34-104) Units/L Albumin 3.8 (3.5-5.7) g/dL - ABG Interpretation ABG results: ABG ABG pH 7.35 pH Units (7.32-7.45) 11/06/17 21:50 ABG pCO2 38 mmHg (35-45) 11/06/17 21:50 ABG pO2 75 mmHg (85-104) L 11/06/17 21:50 ABG O2 Saturation 94 % (95-98) L 11/06/17 21:50 PT/INR, D-dimer PT 13.9 Seconds (9.4-12.1) H 11/06/17 18:04 D-Dimer 1944 ng/mLFEU (0-500) H 11/07/17 00:09 - Impressions Impressions Chest X-Ray 11/07/17 06:42 IMPRESSION: 1. Diffuse left lung infiltrate, likely related to pleural effusion with associated atelectasis. Superimposed pneumonia cannot be excluded. D/ / Jace Jefferson MD / Jace Jefferson MD Interpreting Provider: Jace Jefferson MD Consult Discharge Plan - Plan Referrals: Dali Fried, [facility] [Primary Care Provider] -
[2017-11-07] MEDS: 0.9 % Sodium Chloride 1,000 ML IVC SCH ×2 (08:04→16:49)
[2017-11-07] MEDS: *HR* HYDROcodone/Acet 10/325 mg TABLET PO PRN ×3 (08:11→22:27)
[2017-11-07 08:53] LABS: Bilirubin,Urine Small (Negative); Blood,Urine Negative (Negative); Clarity,Urine Clear (Clear); Color,Urine Yellow (Yellow); Glucose,Urine (UA) Normal (Normal); Ketones,Urine Negative (Negative); Leukocyte Esterase,Urine Negative (Negative); Nitrite,Urine Negative (Negative); PH,Urine 5.5 pH Units (5.0-8.0); Protein,Urine 100 mg/dL (Neg-Trace); Urobilinogen,Urine Normal (Normal)
[2017-11-07 08:58] LABS: Bacteria,Urine Many per hpf (None-Few)
[2017-11-07 08:59] LABS: RBC,Urine 0-3 per hpf (0-3); WBC,Urine 0-3 per hpf (0-3)
[2017-11-07] MEDS ORDERED: Lisinopril 20 MG TABLET PO SCH (09:00)
[2017-11-07] MEDS ORDERED: *HR* Rivaroxaban 10 MG TABLET PO SCH (09:00)
[2017-11-07] MEDS ORDERED: hydroCHLOROthiazide 25 MG TABLET PO SCH (09:00)
[2017-11-07] MEDS ORDERED: Perflutren Lipid Microsphere 1.3 ML in 0.9 % Sodium Chloride 8.7 ML IVP ONE (11:50)
[2017-11-07] MEDS: Piperacillin/Tazobactam 3.375 GM in 0.9 % Sodium Chloride Mini Bag 100 ML IVPB SCH (15:20)
[2017-11-07] MEDS: MOM Conc 10 ML UD.LIQ PO SCH (18:29)
[2017-11-08] MEDS: Piperacillin/Tazobactam 3.375 GM in 0.9 % Sodium Chloride Mini Bag 100 ML IVPB SCH ×3 (01:27→17:08)
[2017-11-08] MEDS: 0.9 % Sodium Chloride 1,000 ML IVC SCH ×3 (01:30→15:47)
[2017-11-08 02:17] LABS: Red Cell Distribution Width 12.1 % (11.5-14.5)
[2017-11-08 02:20] LABS: Hematocrit 39.2 % (37.5-50.1); Hemoglobin 13.2 g/dL (12.9-16.9); Immature Platelets 1.9 % (1.1-6.1); Lymphocytes # 1.1 K/mcL (0.6-4.6); Mean Corpuscular HGB Conc 33.7 g/dL (31.6-35.5); Mean Corpuscular Hemoglobin 30.6 pg (28.0-33.3); Mean Platelet Volume 8.6 fL (9.4-12.4); Platelet Count 459 K/mcL (140-400); Red Blood Count 4.31 M/mcL (4.19-5.50)
[2017-11-08 02:38] LABS: Monocytes # 1.6 K/mcL (0.0-1.3); Neutrophils # 24.4 K/mcL (1.6-8.9)
[2017-11-08 02:39] LABS: Reactive Lymphocytes Present (Not Present)
[2017-11-08 02:40] LABS: Alanine Aminotransferase 19 Units/L (7-52); Albumin 3.6 g/dL (3.5-5.7); Albumin/Globulin Ratio 1.1 (1.1-2.2); Alkaline Phosphatase 49 Units/L (34-104); Aspartate Amino Transferase 26 Units/L (13-39); BUN/Creatinine Ratio 22 (6-26); Bilirubin,Direct 0.2 mg/dL (0.0-0.2); Bilirubin,Indirect 0.8 mg/dL (0.0-1.2); Blood Urea Nitrogen 27 mg/dL (6-20); Calcium 8.9 mg/dL (8.6-10.3); Carbon Dioxide 26 mEq/L (23-29); Chloride 101 mEq/L (98-107); Globulin 3.4 g/dL (2.4-3.5); Glucose 184 mg/dL (70-105); Osmolality,Calculated 284 (280-300); Potassium 4.8 mEq/L (3.5-5.1); Sodium 132 mEq/L (136-145); eGFR For African Americans > 60 (> 60); eGFR For Non-African Americans > 60 (> 60)
[2017-11-08] MEDS: *HR* Enoxaparin 100 MG/ML SYRINGE SQ SCH ×2 (03:19→13:22)
[2017-11-08 03:33] LABS: ABG Base Excess -3 mEq/L (-2 to 3); ABG HCO3 24 mEq/L (21-27); ABG Oxygen Saturation 87 % (95-98); ABG PCO2 47 mmHg (35-45); ABG PH 7.31 pH Units (7.32-7.45); ABG PO2 58 mmHg (85-104); ABG TCO2 25 mEq/L (20-26)
[2017-11-08] MEDS: Insulin LISPRO 300 UNITS/3 ML VIAL SQ SCH ×4 (08:34→21:29)
[2017-11-08] MEDS: MOM Conc 10 ML UD.LIQ PO SCH (08:34)
[2017-11-08 09:09] LABS: Estimated Average Glucose 143 mg/dl; Hemoglobin A1C 6.6 %
[2017-11-08] MEDS: Ondansetron 4 MG/2 ML VIAL IVP PRN ×2 (10:44→17:04)
[2017-11-08] MEDS ORDERED: methylPREDNISolone 125 MG/2 ML VIAL IVP ONE (15:23)
--- NOTE | 2017-11-08 15:39 | Internal Med Progress Note ---
Date of Encounter: 11/08/17 Time of Encounter: 15:37 - Assessment and plan (1) PNA (pneumonia) Current Visit: Yes Status: Acute Assessment and plan: He has decreased breath sounds on the left. likely developed pneumonia. Will continue Vancomycin and Zosyn. I am adding Zithromax to his treatments. He will have nebulizer treatments with ipratropium/albuterol every four hours. IV Solu- Medrol will be started. Will continue supplemental oxygen. Will check lactic acid. Qualifiers: Pneumonia type: due to unspecified organism Laterality: left Lung location: unspecified part of lung Qualified Code(s): J18.9 - Pneumonia, unspecified organism (2) Acute respiratory failure with hypoxia and hypercapnia Current Visit: Yes Status: Acute Assessment and plan: He has developed acute hypoxic/hypercapnic respiratory failure. See my note above. (3) Morbid obesity Current Visit: Yes Status: Chronic Assessment and plan: Will address this issue with at the time of discharge. (4) History of pulmonary embolism Current Visit: Yes Status: Acute Assessment and plan: Will address this issue with at the time of discharge. He was taking. Xarelto at home. Currently he's taking Lovenox at the 200 mg every 12 hours. - Time Spent With Patient Total time spent is greater than 50% in coordination of care (as documented) at patient's floor/unit and/or counseling patient: 25 - 35 minutes - Subjective Interval history: The patient feel short of breath. He is using supplemental oxygen at 10 L per minute. It was 4 L per minute at admission. He was not using oxygen at home before this hospitalization. Denies chest pain. He does have mild cough; with some wheezing. Denies abdominal pain, nausea and vomiting. He has normal urination. - Constitutional Vitals: Temp Pulse Resp BP Pulse Ox 97.6 F 113 22 138/93 91 11/08/17 11:27 11/08/17 11:27 11/08/17 04:00 11/08/17 11:27 11/08/17 11:27 General appearance: Present: mild distress, A&O X 3, morbidly obese, obese, answers questions appropriately - Respiratory Respiratory exam: Present: CTAB. Absent: accessory muscle use, rales, rhonchi, wheezes Additional comments: He has decreased breath sounds on the left. - Cardiovascular Cardiovascular exam: Present: RRR, +S1, +S2. Absent: diastolic murmur, gallop, rubs, systolic murmur - GI/Abdominal GI/Abdominal exam: Present: normal bowel sounds, soft, no peritoneal signs. Absent: distended, tenderness - Skin Skin exam: Present: dry, intact Internal Medicine: Result - Labs CBC & Chem 7: 11/08/17 02:10 11/08/17 02:10 Labs: Short CBC 11/08/17 Range/Units 02:10 WBC 27.1 H (4.3-11.1) K/mcL Hgb 13.2 (12.9-16.9) g/dL Hct 39.2 (37.5-50.1) % Plt Count 459 H (140-400) K/mcL Neutrophils # 24.4 H (1.6-8.9) K/mcL BMP 11/08/17 02:10 Sodium 132 L Potassium 4.8 Chloride 101 Carbon Dioxide 26 BUN 27 H Creatinine 1.21 Glucose 184 H Calcium 8.9 Liver Function 11/08/17 Range/Units 02:10 Total Bilirubin 1.0 (0.3-1.0) mg/dL Direct Bilirubin 0.2 (0.0-0.2) mg/dL AST 26 (13-39) Units/L ALT 19 (7-52) Units/L Alkaline Phosphatase 49 (34-104) Units/L Albumin 3.6 (3.5-5.7) g/dL - ABG Interpretation ABG results: ABG ABG pH 7.31 pH Units (7.32-7.45) L 11/08/17 03:29 ABG pCO2 47 mmHg (35-45) H 11/08/17 03:29 ABG pO2 58 mmHg (85-104) L 11/08/17 03:29 ABG O2 Saturation 87 % (95-98) L 11/08/17 03:29 PT/INR, D-dimer PT 13.9 Seconds (9.4-12.1) H 11/06/17 18:04 D-Dimer 1944 ng/mLFEU (0-500) H 11/07/17 00:09 - Impressions Impressions Chest X-Ray 11/08/17 01:22 IMPRESSION: Near complete opacification of the left hemithorax. D/ / Dakota Spicer MD / Dakota Spicer MD Interpreting Provider: Dakota Spicer MD Consult Discharge Plan - Plan Referrals: Dali Fried, [employer]ORAT[facility] [employer]ETICIST [Primary Care Provider] -
[2017-11-08] MEDS: Azithromycin 500 MG in D5% in Water 250 ML IVPB SCH (15:46)
[2017-11-08] MEDS: Ipratropium/Albuterol Neb 3 ML IH SCH ×4 (16:01→23:01)
[2017-11-08] MEDS: MethylPREDNISolone 40 MG/ML VIAL IVP SCH (21:27)
[2017-11-09] MEDS: Ondansetron 4 MG/2 ML VIAL IVP PRN (01:10)
[2017-11-09] MEDS: Piperacillin/Tazobactam 3.375 GM in 0.9 % Sodium Chloride Mini Bag 100 ML IVPB SCH ×4 (01:11→23:18)
[2017-11-09] MEDS: Ipratropium/Albuterol Neb 3 ML IH SCH ×6 (03:08→23:19)
[2017-11-09] MEDS: *HR* Enoxaparin 100 MG/ML SYRINGE SQ SCH (03:08)
[2017-11-09] MEDS: MethylPREDNISolone 40 MG/ML VIAL IVP SCH ×5 (03:08→23:10)
[2017-11-09 06:00] LABS: Basophils % 0.1 %; Mean Platelet Volume 9.3 fL (9.4-12.4); Platelet Count 403 K/mcL (140-400)
[2017-11-09 06:02] LABS: Hematocrit 36.1 % (37.5-50.1); Hemoglobin 12.1 g/dL (12.9-16.9); Immature Granulocytes % 1.3 % (0-4); Lymphocytes # 0.7 K/mcL (0.6-4.6); Lymphocytes % 2.5 %; Mean Corpuscular HGB Conc 33.5 g/dL (31.6-35.5); Mean Corpuscular Hemoglobin 30.6 pg (28.0-33.3); Mean Corpuscular Volume 91.4 fL (83.0-100.0); Monocytes # 0.8 K/mcL (0.0-1.3); Monocytes % 3.1 %; Red Blood Count 3.95 M/mcL (4.19-5.50); Red Cell Distribution Width 12.1 % (11.5-14.5)
[2017-11-09 06:05] LABS: Neutrophils # 24.2 K/mcL (1.6-8.9)
[2017-11-09 06:14] LABS: Platelet Estimate Normal (Normal)
[2017-11-09 06:22] LABS: Alanine Aminotransferase 19 Units/L (7-52); Albumin 3.4 g/dL (3.5-5.7); Alkaline Phosphatase 53 Units/L (34-104); Aspartate Amino Transferase 14 Units/L (13-39); BUN/Creatinine Ratio 20 (6-26); Bilirubin,Total 0.7 mg/dL (0.3-1.0); Blood Urea Nitrogen 25 mg/dL (6-20); Carbon Dioxide 22 mEq/L (23-29); Chloride 99 mEq/L (98-107); Globulin 3.5 g/dL (2.4-3.5); Glucose 342 mg/dL (70-105); Osmolality,Calculated 288 (280-300); Potassium 4.4 mEq/L (3.5-5.1); Sodium 130 mEq/L (136-145); Total Protein 6.9 g/dL (6.4-8.9); eGFR For African Americans > 60 (> 60); eGFR For Non-African Americans > 60 (> 60)
[2017-11-09] MEDS: 0.9 % Sodium Chloride 1,000 ML IVC SCH (06:58)
[2017-11-09] MEDS: Insulin LISPRO 300 UNITS/3 ML VIAL SQ SCH ×4 (07:54→21:05)
[2017-11-09] MEDS: MOM Conc 10 ML UD.LIQ PO SCH (07:56)
--- NOTE | 2017-11-09 08:03 | Electrocardiograph Report ---
[place] [id number] Test Date: 2017-11-06 Pat Name: Hayden Mckinley Department: 103 Room: 2NE26 Gender: M Service Tech/Welder: : 1970 Requested By: Asher Montanez Order Number: [id number] Reading MD: Eren Doran Measurements Intervals [place] Rate: 101 P: 39 [place]: 128 QRS: 56 QRSD: 108 T: 7 QT: 331 QTc: 389 Interpretive Statements SINUS TACHYCARDIA Electronically Signed On 11-09-2017 8:01:08 EDT by Eren Doran
--- NOTE | 2017-11-09 08:06 | Electrocardiograph Report ---
[address] [address] Test Date: 2017-11-06 Pat Name: Hayden Mckinley Department: 103 Room: 2NE26 Gender: M Component Overhaul Operator: : 1970 Requested By: Gen Cifuentes Order Number: [id number] Reading MD: Eren Doran Measurements Intervals [place] Rate: 110 P: 0 [place]: 112 QRS: 51 QRSD: 88 T: 24 QT: 313 QTc: 378 Interpretive Statements SINUS TACHYCARDIA WITH SHORT [place] INTERVAL Electronically Signed On 11-09-2017 8:04:19 EDT by Eren Doran
--- NOTE | 2017-11-09 09:22 | Pulmonology Consult Note ---
Date of Encounter: 11/09/17 Time of Encounter: 09:21 Assessment and Plan (1) Acute respiratory failure with hypoxia Current Visit: Yes Status: Acute This is secondary to pneumonia complicated by large left-sided loculated pleural effusion. The patient has very high risk of further decompensation in his respiratory failure requiring endotracheal intubation and mechanical ventilation given severity of underlying illness complicated by morbid obesity and obstructive sleep apnea. I recommend starting BiPAP for support as tolerated. He is currently being monitored on to [facility] but if further increase in oxygen saturation I recommend transfer to ICU for further monitoring I will follow this very closely. Given body habitus and degree of respiratory failure this will be a very high risk intubation and will need anesthesia support. (2) PNA (pneumonia) Current Visit: Yes Status: Acute The patient has pneumonia and I suspect a at least complicated parapneumonic effusion versus empyema. He is on broad-spectrum antimicrobials ideal vancomycin trough in this patient should be greater than 15 and probably closer to 20 until cultures are back. There are no clear risk factors that would lead this patient have a drug resistant infection. I recommend infectious disease support Qualifiers: Pneumonia type: due to unspecified organism Laterality: left Lung location: unspecified part of lung Qualified Code(s): J18.9 - Pneumonia, unspecified organism (3) Pleural effusion Current Visit: Yes Status: Acute This is first concerning for complicated parapneumonic effusion versus empyema. I reviewed the CT angiogram from last week as well as the CT thorax which I ordered an urgent basis today. There is notable complete left-sided opacification which is a combination of volume loss and pleural effusion. I discussed the case with interventional radiology we will start with small bore chest tube for diagnostic reasons as well as for drainage given degree of hypoxemia and severity of underlying pleural effusion. This should help to some degree with hypoxemia but I suspect that the definitive treatment of this case will likely require surgical intervention (Decortication). Once pleural fluid studies have been obtained which I have ordered and resulted I will discuss the case with the cardiothoracic surgeon on-call. Please do not drain more than 2 L of pleural fluid post procedure (4) History of pulmonary embolism Current Visit: Yes Status: Acute His received subcutaneous Lovenox would hold second dose today pending upcoming procedure and possible surgical intervention. If no further interventions plan today then would need IV heparin at therapeutic dosing for PE (5) JUAN (obstructive sleep apnea) Current Visit: Yes Status: Acute This is being treated with positive airway pressure support at present he will need outpatient Polysonogram for re-titration study and follow-up in pulmonary/ sleep clinic as outpatient History of Present Illness Consult date: 11/09/17 Requesting physician: Ilia Hernandez Reason for consult: hypoxemia Chief complaint: Difficulty in Breathing History of present illness: The patient is a pleasant 46-year-old gentleman with a past medical history of morbid obesity and obstructive sleep apnea nontolerant of CPAP, prior pulmonary embolus who is admitted for hypoxemia. He presented to the ED on 11/06 for chest pain and difficulty breathing that had started on when he was noted to be at his baseline state of health and actually had been at the gym earlier that day using a treadmill and stationary bike he states that later that evening he developed chest pain and shortness of breath prompting the patient presented to the emergency room. CTA was performed without evidence of follow large filling defect however the bolus timing was suboptimal. There was notable left-sided pleural effusion and possible left-sided opacity. Patient is noted to have fevers with a week and as high as 101 although he is afebrile at present is being Komori is some is that the patient has required increasing amounts of supplemental oxygen for severe hypoxemia now requiring as high as 12 L high flow nasal cannula to keep oxygen saturation in the high 80s. He has been on broad-spectrum antimicrobials and steroids. Patient does not smoke he denies any sick contacts recent travel or exposure to exotic animals his never been incarcerated and no exposure to tuberculosis in the past. Past Med Surg Social Fam HX - Past Medical History Medical history: arthritis, DVT, fibromyalgia, hypertension, pulmonary embolus Psychiatric history: depression - Past Surgical History Surgical History: cholecystectomy, herniorrhaphy Additional surgical history: catherization to remove blood clot - Social History Smoking Status: Never smoker Smokeless Tobacco Status: No Alcohol use: none Drug use: none - Family History Mother Hx Family Cardiac Disorders: Yes (CHF) Hx Family Endocrine Disorder: Yes (Type 2 diabetes) Father Hx Family Cardiac Disorders: Yes (CHF) Hx Family Endocrine Disorder: Yes (Type 2 diabetic) Medications and Allergies DULoxetine [Cymbalta] 60 mg PO DAILY 11/06/17 [History] HYDROcodone/Acet 5/325 mg [[facility]-325 mg] 1 tab PO Q6H 11/06/17 [History] Hydrochlorothiazide [Microzide] 12.5 mg PO DAILY 11/06/17 [History] Lisinopril [Zestril] 20 mg PO DAILY 11/06/17 [History] Nortriptyline HCl 50 mg PO DAILY 11/06/17 [History] Pravastatin Sodium [Pravachol] 20 mg PO HS 11/06/17 [History] Rivaroxaban [Xarelto] 20 mg PO DAILY 11/06/17 [History] metFORMIN [Glucophage] 500 mg PO DAILY 11/06/17 [History] 3 Allergy/AdvReac Type Severity Reaction Status Date / Time No Known Allergies Allergy Verified 11/06/17 20:33 All Systems: The remainder of the systems were reviewed and are negative Physical Examination Vital Signs: Vital Signs, Last 4 Hours Temp Pulse Resp BP Pulse Ox 11/09/17 08:09 87 11/09/17 07:27 18 90 11/09/17 07:14 98.0 F 97 15 143/87 89 General appearance: other (He is mildly diaphoretic but able to speak in full sentences and appears relatively comfortable) Eyes: nonicteric ENT: oropharynx moist Mallampati (class): 4 Neck: supple Effort: mildly labored Auscultation: right: clear Cardiovascular: regular rate and rhythm Gastrointestinal: normoactive bowel sounds, soft, non-tender, other (Obese) Integumentary: normal Extremities: no cyanosis, no clubbing, other (Patient has trace bilateral pitting edema) Musculoskeletal: no deformities normal mental status, non-focal exam mood appropriate Results - Laboratory Findings CBC and BMP: 11/09/17 05:22 11/09/17 05:22 ABG ABG pH 7.31 pH Units (7.32-7.45) L 11/08/17 03:29 ABG pCO2 47 mmHg (35-45) H 11/08/17 03:29 ABG pO2 58 mmHg (85-104) L 11/08/17 03:29 ABG O2 Saturation 87 % (95-98) L 11/08/17 03:29 PT/INR, D-dimer PT 13.9 Seconds (9.4-12.1) H 11/06/17 18:04 D-Dimer 1944 ng/mLFEU (0-500) H 11/07/17 00:09 Abnormal lab findings: Abnormal lab results WBC 26.0 K/mcL (4.3-11.1) H 11/09/17 05:22 RBC 3.95 M/mcL (4.19-5.50) L 11/09/17 05:22 Hgb 12.1 g/dL (12.9-16.9) L 11/09/17 05:22 Hct 36.1 % (37.5-50.1) L 11/09/17 05:22 Plt Count 403 K/mcL (140-400) H 11/09/17 05:22 MPV 9.3 fL (9.4-12.4) L 11/09/17 05:22 Band Neutrophils % 6.0 % (0-4) H 11/08/17 02:10 Neutrophils # 24.2 K/mcL (1.6-8.9) H 11/09/17 05:22 Reactive Lymphocytes Present (Not Present) A 11/08/17 02:10 PT 13.9 Seconds (9.4-12.1) H 11/06/17 18:04 APTT 38.2 Seconds (26.0-36.0) H 11/06/17 18:04 D-Dimer 1944 ng/mLFEU (0-500) H 11/07/17 00:09 ABG pH 7.31 pH Units (7.32-7.45) L 11/08/17 03:29 ABG pCO2 47 mmHg (35-45) H 11/08/17 03:29 ABG pO2 58 mmHg (85-104) L 11/08/17 03:29 ABG O2 Saturation 87 % (95-98) L 11/08/17 03:29 ABG Base Excess -3 mEq/L (-2 to 3) L 11/08/17 03:29 Sodium 130 mEq/L (136-145) L 11/09/17 05:22 Carbon Dioxide 22 mEq/L (23-29) L 11/09/17 05:22 BUN 25 mg/dL (6-20) H 11/09/17 05:22 Glucose 342 mg/dL (70-105) H 11/09/17 05:22 POC Glucose 289 mg/dL (70-99) H 11/08/17 19:18 Hemoglobin A1c 6.6 % (-5.6) H 11/07/17 04:58 Albumin 3.4 g/dL (3.5-5.7) L 11/09/17 05:22 Albumin/Globulin Ratio 1.0 (1.1-2.2) L 11/09/17 05:22 HDL Cholesterol 29 mg/dL (40-59) L 11/07/17 04:58 Urine Protein 100 mg/dL (Neg-Trace) H 11/07/17 08:30 Urine Bilirubin Small (Negative) H 11/07/17 08:30 Urine Bacteria Many per hpf (None-Few) H 11/07/17 08:30 Vancomycin Trough 13 mcg/mL (5-10) H 11/08/17 20:13 - Microbiology Findings Microbiology Findings: Microbiology, Last 48 Hours 11/07/17 04:50 Blood Culture - Preliminary Peripheral Venipuncture No growth. 11/07/17 04:58 Blood Culture - Preliminary Peripheral Venipuncture No growth. - Diagnostic Findings Chest x-ray: report reviewed, image reviewed CT scan - chest: report reviewed, image reviewed - Clinical Findings Intake & Output: Intake & Output 11/08/17 11/09/17 11/09/17 23:59 07:59 15:59 Intake Total 400 / 400 2200 / 2200 120 / 120 Output Total 650 / 650 300 / 300 200 / 200 Balance -250 / -250 1900 / 1900 -80 / -80 Weight 199.4 kg Consult Discharge Plan - Plan Referrals: Dali Fried, STARCH DUMPER [Primary Care Provider] -
--- NOTE | 2017-11-09 13:04 | IR Procedure Note ---
Date of procedure: 11/09/17 Consent Obtained: Written consent Timeout: Correct patient and procedure verified, Correct site verified, Time out performed, Skin prep completed Local anesthetic: Lidocaine 1% Indications: Left pleural effusion Procedure Performed: CT guided left chest tube placement Was there an assistant women's soccer coach present: No Results/Findings: 12F left chest tube placement Estimated blood loss (cc): 0 Complications: None; Tolerated procedure well Post Procedure Treatment Plan: Monitor on floor Specimen: Sample sent
[2017-11-09] MEDS ORDERED: *HR* Heparin 5,000 UNIT/ML VIAL IVP PRN (15:00)
[2017-11-09] MEDS ORDERED: *HR* Heparin 5,000 UNIT/ML VIAL IVP ONE (15:00)
[2017-11-09 16:01] LABS: INR 1.2; Prothrombin Time 12.8 Seconds (9.4-12.1)
[2017-11-09 16:04] LABS: Activated Partial Thrombo Time 33.2 Seconds (26.0-36.0)
[2017-11-09 16:10] LABS: Appearance of Pleural Fl Bloody (Clear)
[2017-11-09 16:11] LABS: Hemoglobin 12.1 g/dL (12.9-16.9); Mean Corpuscular HGB Conc 34.6 g/dL (31.6-35.5); Mean Corpuscular Hemoglobin 30.7 pg (28.0-33.3); Mean Corpuscular Volume 88.8 fL (83.0-100.0); Mean Platelet Volume 10.5 fL (9.4-12.4); Nucleated Red Blood Cells 0.2 /100 WBC (0); Platelet Count 350 K/mcL (140-400); Red Blood Count 3.94 M/mcL (4.19-5.50); Red Cell Distribution Width 12.2 % (11.5-14.5)
[2017-11-09] MEDS: Heparin 25,000 UNIT/500 ML D5W 25,000 UNIT/500 ML BAG IVC SCH ×2 (16:29→23:39)
[2017-11-09] MEDS: Azithromycin 500 MG in D5% in Water 250 ML IVPB SCH (16:30)
[2017-11-09 16:45] LABS: Lymphocytes # 2.2 K/mcL (0.6-4.6); Monocytes # 1.1 K/mcL (0.0-1.3); Neutrophils # 24.6 K/mcL (1.6-8.9); Platelet Estimate Normal (Normal)
[2017-11-09 20:15] LABS: Basophils % 0.1 %; Mean Platelet Volume 9.2 fL (9.4-12.4)
[2017-11-09 20:16] LABS: Hematocrit 33.1 % (37.5-50.1); Hemoglobin 11.2 g/dL (12.9-16.9); Lymphocytes # 0.7 K/mcL (0.6-4.6); Lymphocytes % 2.9 %; Mean Corpuscular HGB Conc 33.8 g/dL (31.6-35.5); Mean Corpuscular Hemoglobin 30.4 pg (28.0-33.3); Mean Corpuscular Volume 89.9 fL (83.0-100.0); Monocytes # 1.2 K/mcL (0.0-1.3); Monocytes % 4.7 %; Neutrophils # 22.4 K/mcL (1.6-8.9); Platelet Count 411 K/mcL (140-400); Red Blood Count 3.68 M/mcL (4.19-5.50); Red Cell Distribution Width 12.2 % (11.5-14.5); Segmented Neutrophils % 90.3 %
--- NOTE | 2017-11-09 21:13 | Internal Med Progress Note ---
Date of Encounter: 11/09/17 Time of Encounter: 21:13 - Assessment and plan (1) PNA (pneumonia) Current Visit: Yes Status: Acute Assessment and plan: He said chest x-ray from today showed complete opacification of left lung.His WBC count is 9.9 thousand.It was 13.6 thousand at admission.Blood cultures are negative on two occasions. Will continue IV vancomycin, iv piperacillin/ tazobactam and azithromycin. Will continue supplemental oxygen.Will consult pulmonary diseases/critical care. Qualifiers: Pneumonia type: due to unspecified organism Laterality: left Lung location: unspecified part of lung Qualified Code(s): J18.9 - Pneumonia, unspecified organism (2) Acute respiratory failure with hypoxia and hypercapnia Current Visit: Yes Status: Acute Assessment and plan: This is secondary to the problem mentioned by me above. He was not using oxygen at home. (3) Morbid obesity Current Visit: Yes Status: Chronic Assessment and plan: This problem is causing obstructive sleep apnea.He will have night-time pulse oximetry at discharge. (4) History of pulmonary embolism Current Visit: Yes Status: Acute Assessment and plan: He has history of pulmonary embolism. Will keep you on subcutaneous Lovenox. - Time Spent With Patient Total time spent is greater than 50% in coordination of care (as documented) at patient's floor/unit and/or counseling patient: - Subjective Interval history: The patient continues to have difficulty breathing. He's using supplemental oxygen at 12 L per minute. He does have mild/moderate cough. It is without wheezing. He denies chest pain. He denies abdominal pain, nausea and vomiting. He has normal urination. He feels weak and tired. - Constitutional Vitals: Temp Pulse Resp BP Pulse Ox 99.0 F 106 18 134/75 90 11/09/17 19:42 11/09/17 19:42 11/09/17 20:16 11/09/17 19:42 11/09/17 20:16 General appearance: Present: mild distress, A&O X 3, morbidly obese, obese, answers questions appropriately - Respiratory Respiratory exam: Present: CTAB. Absent: accessory muscle use, rales, rhonchi, wheezes Additional comments: The patient has decreased breath sounds on the left side. - Cardiovascular Cardiovascular exam: Present: RRR, +S1, +S2. Absent: diastolic murmur, gallop, rubs, systolic murmur - GI/Abdominal GI/Abdominal exam: Present: normal bowel sounds, soft, no peritoneal signs. Absent: distended, tenderness Additional comments: Rounded due to obesity. - Skin Skin exam: Present: dry, intact Internal Medicine: Result - Labs CBC & Chem 7: 11/10/17 05:05 11/10/17 05:05 - ABG Interpretation ABG results: ABG ABG pH 7.31 pH Units (7.32-7.45) L 11/08/17 03:29 ABG pCO2 47 mmHg (35-45) H 11/08/17 03:29 ABG pO2 58 mmHg (85-104) L 11/08/17 03:29 ABG O2 Saturation 87 % (95-98) L 11/08/17 03:29 PT/INR, D-dimer PT 12.8 Seconds (9.4-12.1) H 11/09/17 14:46 D-Dimer 1944 ng/mLFEU (0-500) H 11/07/17 00:09 Consult Discharge Plan - Plan Referrals: Dali Fried, CIRCULAR SAWYER STONE [Primary Care Provider] -
[2017-11-09 22:02] LABS: Adenovirus Not Detected (Not Detect); Bordetella Pertussis Not Detected (Not Detect); Chlamydophila pneumoniae Not Detected (Not Detect); Coronavirus 229E Not Detected (Not Detect); Coronavirus HKU1 Not Detected (Not Detect); Coronavirus NL63 Not Detected (Not Detect); Coronavirus OC43 Not Detected (Not Detect); Human Metapneumovirus Not Detected (Not Detect); Human Rhinovirus/Enterovirus Not Detected (Not Detect); Influenza A Subtype 2009 H1 Not Detected (Not Detect); Influenza A Untypeable Not Detected (Not Detect); Influenza B Not Detected (Not Detect); Mycoplasma pneumoniae Not Detected (Not Detect); Parainfluenza Virus 1 Not Detected (Not Detect); Parainfluenza Virus 2 Not Detected (Not Detect); Parainfluenza Virus 3 Not Detected (Not Detect); Parainfluenza Virus 4 Not Detected (Not Detect); Respiratory Syncytial Virus Not Detected (Not Detect)
[2017-11-09] MEDS: *HR* Heparin 5,000 UNIT/ML VIAL IVP PRN (23:11)
[2017-11-10] MEDS: Ipratropium/Albuterol Neb 3 ML IH SCH ×6 (04:21→23:46)
[2017-11-10] MEDS: MethylPREDNISolone 40 MG/ML VIAL IVP SCH ×2 (05:05→11:35)
[2017-11-10 05:12] LABS: ABG Base Excess 2 mEq/L (-2 to 3); ABG HCO3 27 mEq/L (21-27); ABG Oxygen Saturation 91 % (95-98); ABG PCO2 44 mmHg (35-45); ABG PH 7.39 pH Units (7.32-7.45); ABG PO2 62 mmHg (85-104); ABG TCO2 28 mEq/L (20-26)
[2017-11-10 05:34] LABS: Basophils % 0.1 %; Hematocrit 33.8 % (37.5-50.1); Hemoglobin 11.3 g/dL (12.9-16.9); Lymphocytes # 0.8 K/mcL (0.6-4.6); Lymphocytes % 3.5 %; Mean Corpuscular HGB Conc 33.4 g/dL (31.6-35.5); Mean Corpuscular Hemoglobin 30.2 pg (28.0-33.3); Mean Corpuscular Volume 90.4 fL (83.0-100.0); Mean Platelet Volume 9.3 fL (9.4-12.4); Monocytes % 4.6 %; Neutrophils # 20.2 K/mcL (1.6-8.9); Platelet Count 425 K/mcL (140-400); Red Blood Count 3.74 M/mcL (4.19-5.50); Red Cell Distribution Width 12.2 % (11.5-14.5); Segmented Neutrophils % 89.8 %
[2017-11-10 05:47] LABS: BUN/Creatinine Ratio 23 (6-26); Blood Urea Nitrogen 29 mg/dL (6-20); Calcium 8.8 mg/dL (8.6-10.3); Carbon Dioxide 25 mEq/L (23-29); Chloride 98 mEq/L (98-107); Glucose 399 mg/dL (70-105); Magnesium 2.7 mg/dL (1.6-2.6); Osmolality,Calculated 295 (280-300); Potassium 4.4 mEq/L (3.5-5.1); Sodium 131 mEq/L (136-145); eGFR For African Americans > 60 (> 60); eGFR For Non-African Americans > 60 (> 60)
--- NOTE | 2017-11-10 07:39 | Pulmonology Progress Note ---
Date of Encounter: 11/10/17 Time of Encounter: 07:37 Assessment and Plan (1) Acute respiratory failure with hypoxia Current Visit: Yes Status: Acute This is secondary to pneumonia and pleural effusion and is improving. Continue high flow nasal cannula today would recommend using BiPAP at night. Goal saturation around 89-92% (2) PNA (pneumonia) Current Visit: Yes Status: Acute Organism unclear at this time. White count trending down remains afebrile Would continue broad-spectrum antimicrobials today with planned to de-escalate likely in the next 24 hours Qualifiers: Pneumonia type: due to unspecified organism Laterality: left Lung location: unspecified part of lung Qualified Code(s): J18.9 - Pneumonia, unspecified organism (3) Pleural effusion Current Visit: Yes Status: Acute This is a complicated parapneumonic effusion continued chest tube drainage I did flush the chest tube at bedside today with 10 mL of sterile saline. Repeat chest x-ray was reviewed and shows overall improvement of the right lung although still elicit significant opacity on the right side will likely need repeat chest CT within the next 24-48 hours. We will need to interrupt heparin infusion for chest tube removal (4) History of pulmonary embolism Current Visit: Yes Status: Acute He has been transitioned to IV heparin infusion dosed by pharmacy. (5) JUAN (obstructive sleep apnea) Current Visit: Yes Status: Acute We will need outpatient polysomnogram while inpatient would continue BiPAP at night Subjective Principal diagnosis: Pneumonia Interval history: Patient was transferred appropriately to the [facility] night for closer monitoring. The atrium chamber and a chest tube was switched once with about 300 mL serosanguineous fluid in the new chamber. Although this is true elbow off overnight to about 50 mL output. He is breathing much easier today although he remains on 15 L high flow nasal cannula was oxygen saturation up as high as the mid to high 90s on this amount he is able to speak in full sentences now. He did generally tolerated BiPAP overnight Objective PUL Vital signs: Last Vital Signs Temp 98.0 F 11/10/17 07:11 Pulse 91 11/10/17 07:11 Resp 20 11/10/17 07:11 BP 128/70 11/10/17 07:11 Pulse Ox 95 11/10/17 07:11 General appearance: no acute distress ENT: oropharynx moist Auscultation: left: diminished breath sounds, right: rales Cardiovascular: regular rate and rhythm Gastrointestinal: normoactive bowel sounds, soft, non-tender Integumentary: normal Extremities: other (Trace bilateral nonpitting edema) Musculoskeletal: no deformities normal mental status, non-focal exam mood appropriate Results - Laboratory Findings CBC and BMP: 11/10/17 05:05 11/10/17 05:05 ABG ABG pH 7.39 pH Units (7.32-7.45) 11/10/17 05:08 ABG pCO2 44 mmHg (35-45) 11/10/17 05:08 ABG pO2 62 mmHg (85-104) L 11/10/17 05:08 ABG O2 Saturation 91 % (95-98) L 11/10/17 05:08 PT/INR, D-dimer PT 12.8 Seconds (9.4-12.1) H 11/09/17 14:46 D-Dimer 1944 ng/mLFEU (0-500) H 11/07/17 00:09 Abnormal lab findings: Abnormal lab results WBC 22.5 K/mcL (4.3-11.1) H 11/10/17 05:05 RBC 3.74 M/mcL (4.19-5.50) L 11/10/17 05:05 Hgb 11.3 g/dL (12.9-16.9) L 11/10/17 05:05 Hct 33.8 % (37.5-50.1) L 11/10/17 05:05 Plt Count 425 K/mcL (140-400) H 11/10/17 05:05 MPV 9.3 fL (9.4-12.4) L 11/10/17 05:05 Neutrophils # 20.2 K/mcL (1.6-8.9) H 11/10/17 05:05 Nucleated RBCs/100 WBC 0.2 /100 WBC (0) H 11/09/17 15:34 Reactive Lymphocytes Present (Not Present) A 11/08/17 02:10 PT 12.8 Seconds (9.4-12.1) H 11/09/17 14:46 APTT 67.3 Seconds (26.0-36.0) H 11/10/17 05:05 D-Dimer 1944 ng/mLFEU (0-500) H 11/07/17 00:09 ABG pO2 62 mmHg (85-104) L 11/10/17 05:08 ABG Total CO2 28 mEq/L (20-26) H 11/10/17 05:08 ABG O2 Saturation 91 % (95-98) L 11/10/17 05:08 Sodium 131 mEq/L (136-145) L 11/10/17 05:05 BUN 29 mg/dL (6-20) H 11/10/17 05:05 Glucose 399 mg/dL (70-105) H 11/10/17 05:05 POC Glucose 335 mg/dL (70-99) H 11/09/17 19:38 Hemoglobin A1c 6.6 % (-5.6) H 11/07/17 04:58 Magnesium 2.7 mg/dL (1.6-2.6) H 11/10/17 05:05 Albumin 3.4 g/dL (3.5-5.7) L 11/09/17 05:22 Albumin/Globulin Ratio 1.0 (1.1-2.2) L 11/09/17 05:22 HDL Cholesterol 29 mg/dL (40-59) L 11/07/17 04:58 Urine Protein 100 mg/dL (Neg-Trace) H 11/07/17 08:30 Urine Bilirubin Small (Negative) H 11/07/17 08:30 Urine Bacteria Many per hpf (None-Few) H 11/07/17 08:30 Pleural Appearance Bloody (Clear) A 11/09/17 12:56 Pleural RBC 0.070 M/mcL (0.000-0.002) H 11/09/17 12:56 Pleural Tot Nuc Cell 7045 TNC/mcL (0-1000) H 11/09/17 12:56 Vancomycin Trough 13 mcg/mL (5-10) H 11/08/17 20:13 - Diagnostic Findings Chest x-ray: report reviewed, image reviewed - Clinical Findings Intake & Output: Intake & Output 11/09/17 11/09/17 11/10/17 15:59 23:59 07:59 Intake Total 700 / 1070 1000 / 1000 Output Total 1375 / 1375 Balance 700 / -1180 -375 / -375 Weight 199.4 kg Consult Discharge Plan - Plan Referrals: Dali Fried, BUSINESS ANALYST CONSULTANT [Primary Care Provider] -
[2017-11-10] MEDS: Piperacillin/Tazobactam 3.375 GM in 0.9 % Sodium Chloride Mini Bag 100 ML IVPB SCH ×2 (07:52→15:55)
[2017-11-10] MEDS: Insulin LISPRO 300 UNITS/3 ML VIAL SQ SCH ×4 (07:53→20:23)
[2017-11-10] MEDS: MOM Conc 10 ML UD.LIQ PO SCH (07:55)
[2017-11-10] MEDS: Heparin 25,000 UNIT/500 ML D5W 25,000 UNIT/500 ML BAG IVC SCH ×2 (07:57→16:07)
[2017-11-10] MEDS: *HR* HYDROcodone/Acet 10/325 mg TABLET PO PRN (11:34)
[2017-11-10] MEDS: *HR* Heparin 5,000 UNIT/ML VIAL IVP PRN (12:34)
[2017-11-10] MEDS ORDERED: Aminoglycoside Consult 1 EACH MC ONE ×2 (13:35)
--- NOTE | 2017-11-10 15:34 | Internal Med Progress Note ---
Date of Encounter: 11/10/17 Time of Encounter: 10:35 - Assessment and plan (1) Acute and chronic respiratory failure with hypoxia Current Visit: Yes Status: Acute Assessment and plan: Requiring high flow nasal cannula. Is currently on 15 L/m. Pulmonology following. Underwent chest tube placement yesterday. Chest x-ray done this morning shows tiny pneumothorax in the apices with decrease in amount of pleural fluid in the left lung. Possible left hilar mass or collapse of left lung also noted. Continue to treat underlying pneumonia. (2) PNA (pneumonia) Current Visit: Yes Status: Suspected Assessment and plan: No organism identified yet. Continue broad-spectrum antibiotics. Plan for de- escalation tomorrow if cultures remain negative. WBC count is improving. On Zosyn and vancomycin and azithromycin. Qualifiers: Pneumonia type: due to methicillin-resistant Staphylococcus aureus (MRSA) Laterality: left Lung location: unspecified part of lung Qualified Code(s): J15.212 - Pneumonia due to Methicillin resistant Staphylococcus aureus (3) Chest pain Current Visit: Yes Status: Acute Assessment and plan: Currently chest pain mainly due to chest to placement. Supportive care and pain control. Qualifiers: Chest pain type: unspecified Qualified Code(s): R07.9 - Chest pain, unspecified (4) Dyspnea Current Visit: Yes Status: Acute Assessment and plan: Due to left pleural effusion and pneumonia. Improving. Continue O2 supplementation Qualifiers: Dyspnea type: unspecified Qualified Code(s): R06.00 - Dyspnea, unspecified (5) Tachycardia Current Visit: Yes Status: Resolved Assessment and plan: Improved. (6) H/O deep venous thrombosis Current Visit: Yes Status: Chronic Assessment and plan: History of DVT and PE. Currently on IV heparin (7) Diabetes mellitus Current Visit: Yes Status: Chronic Assessment and plan: Uncontrolled. Will place patient on long-acting insulin and increase sliding scale coverage to high correctional dosing. Continue to monitor blood sugars closely. Qualifiers: Diabetes mellitus type: type 2 Diabetes mellitus halfway insulin use: without intermediate manager use Diabetes mellitus complication status: without complication Qualified Code(s): E11.9 - Type 2 diabetes mellitus without complications (8) Hypertension Current Visit: Yes Status: Chronic Assessment and plan: Controlled. Qualifiers: Hypertension type: essential hypertension Qualified Code(s): I10 - Essential (primary) hypertension (9) DVT prophylaxis Current Visit: Yes Status: Acute Assessment and plan: IV heparin (10) JUAN (obstructive sleep apnea) Current Visit: Yes Status: Acute Assessment and plan: Use BiPAP as needed. Sleep study as outpatient. - Time Spent With Patient Total time spent is greater than 50% in coordination of care (as documented) at patient's floor/unit and/or counseling patient: - Subjective Interval history: Patient is feeling much better now since he underwent chest tube placement yesterday. He is able to breathe better. He still requiring high amounts of supplemental oxygen. Does have pain at site of chest tube. No fever reported overnight. - Constitutional Vitals: Temp Pulse Resp BP Pulse Ox 98.1 F 96 20 151/96 97 11/10/17 11:11 11/10/17 11:11 11/10/17 11:11 11/10/17 11:11 11/10/17 11:11 General appearance: Present: cooperative, mild distress, A&O X 3, morbidly obese , obese, answers questions appropriately - Neck Neck exam general surgery: Present: supple, trachea midline. Absent: lymphadenopathy - Respiratory Respiratory exam: Present: CTAB. Absent: accessory muscle use, rales, rhonchi, wheezes - Cardiovascular Cardiovascular exam: Present: RRR, +S1, +S2. Absent: diastolic murmur, gallop, rubs, systolic murmur - GI/Abdominal GI/Abdominal exam: Present: normal bowel sounds, soft, no peritoneal signs. Absent: distended, tenderness - Extremities Exam Extremities exam: Present: warm, radial pulses palpable and symmetrical. Absent : calf tenderness, cyanotic, pedal edema - Neurological Exam Neurological exam: Present: alert, oriented X3, no focal deficits. Absent: facial droop, speech deficit - Skin Skin exam: Present: dry, intact Internal Medicine: Result - Labs CBC & Chem 7: 11/10/17 05:05 11/10/17 05:05 Labs: Short CBC 11/10/17 Range/Units 05:05 WBC 22.5 H (4.3-11.1) K/mcL Hgb 11.3 L (12.9-16.9) g/dL Hct 33.8 L (37.5-50.1) % Plt Count 425 H (140-400) K/mcL Neutrophils # 20.2 H (1.6-8.9) K/mcL BMP 11/10/17 05:05 Sodium 131 L Potassium 4.4 Chloride 98 Carbon Dioxide 25 BUN 29 H Creatinine 1.24 Glucose 399 H Calcium 8.8 - ABG Interpretation ABG results: ABG ABG pH 7.39 pH Units (7.32-7.45) 11/10/17 05:08 ABG pCO2 44 mmHg (35-45) 11/10/17 05:08 ABG pO2 62 mmHg (85-104) L 11/10/17 05:08 ABG O2 Saturation 91 % (95-98) L 11/10/17 05:08 PT/INR, D-dimer PT 12.8 Seconds (9.4-12.1) H 11/09/17 14:46 D-Dimer 1944 ng/mLFEU (0-500) H 11/07/17 00:09 - Impressions Impressions Chest X-Ray 11/10/17 06:00 IMPRESSION: New small bore catheter in a left hemothorax. There is a tiny pneumothorax in the apices. There is decrease in the amount of pleural fluid in the left lung. There is fullness in the left hilar region which could be in part related to collapse. A underlying mass cannot be excluded. Follow-up to complete resolution is suggested. D/ / 11/10/2017 08:33:10 Karon Smith MD / juan Interpreting Provider: Karon Smith MD Consult Discharge Plan - Plan Referrals: Dali Fried, MICHAELA [Primary Care Provider] - 11/17/17 10:00 am
[2017-11-10] MEDS: Azithromycin 500 MG in D5% in Water 250 ML IVPB SCH (15:53)
[2017-11-10] MEDS: methylPREDNISolone 125 MG/2 ML VIAL IVP SCH (18:17)
[2017-11-10] MEDS ORDERED: Insulin DETEMIR 100 UNIT/ML X5UNITS SQ SCH (21:00)
[2017-11-11] MEDS: Piperacillin/Tazobactam 3.375 GM in 0.9 % Sodium Chloride Mini Bag 100 ML IVPB SCH ×3 (00:19→16:18)
[2017-11-11] MEDS: Heparin 25,000 UNIT/500 ML D5W 25,000 UNIT/500 ML BAG IVC SCH ×3 (01:03→18:38)
[2017-11-11 03:40] LABS: Basophils % 0.2 %; Hematocrit 32.5 % (37.5-50.1); Immature Granulocytes % 2.6 % (0-4); Lymphocytes # 0.8 K/mcL (0.6-4.6); Lymphocytes % 4.7 %; Mean Corpuscular HGB Conc 33.8 g/dL (31.6-35.5); Mean Corpuscular Hemoglobin 30.9 pg (28.0-33.3); Mean Corpuscular Volume 91.3 fL (83.0-100.0); Mean Platelet Volume 9.2 fL (9.4-12.4); Monocytes # 1.2 K/mcL (0.0-1.3); Monocytes % 6.9 %; Neutrophils # 14.7 K/mcL (1.6-8.9); Platelet Count 443 K/mcL (140-400); Red Blood Count 3.56 M/mcL (4.19-5.50); Red Cell Distribution Width 12.3 % (11.5-14.5); Segmented Neutrophils % 85.6 %
[2017-11-11 04:02] LABS: BUN/Creatinine Ratio 27 (6-26); Blood Urea Nitrogen 33 mg/dL (6-20); Calcium 8.8 mg/dL (8.6-10.3); Carbon Dioxide 26 mEq/L (23-29); Chloride 100 mEq/L (98-107); Glucose 362 mg/dL (70-105); Osmolality,Calculated 302 (280-300); Potassium 4.3 mEq/L (3.5-5.1); Sodium 135 mEq/L (136-145); eGFR For African Americans > 60 (> 60); eGFR For Non-African Americans > 60 (> 60)
[2017-11-11] MEDS: Ipratropium/Albuterol Neb 3 ML IH SCH ×6 (04:10→23:04)
[2017-11-11] MEDS: methylPREDNISolone 125 MG/2 ML VIAL IVP SCH (05:29)
--- NOTE | 2017-11-11 06:32 | Pulmonology Progress Note ---
Date of Encounter: 11/11/17 Time of Encounter: 06:32 Assessment and Plan (1) Acute respiratory failure with hypoxia Current Visit: Yes Status: Acute This is secondary to pneumonia and pleural effusion and is improving. Continue high flow nasal cannula today would recommend using BiPAP at night. Goal saturation around 89-92% I suspect a component of hydrostatic pulmonary edema they have given the patient dose of Lasix (2) PNA (pneumonia) Current Visit: Yes Status: Suspected Organism unclear at this time. White count trending down remains afebrile Recommend de-escalation to respiratory fluoroquinolone such as Levaquin. He will likely need prolonged antimicrobial therapy for at least 14 days and probably closer to 3 weeks based upon radiographic resolution Qualifiers: Pneumonia type: due to methicillin-resistant Staphylococcus aureus (MRSA) Laterality: left Lung location: unspecified part of lung Qualified Code(s): J15.212 - Pneumonia due to Methicillin resistant Staphylococcus aureus (3) Pleural effusion Current Visit: Yes Status: Acute This is a complicated parapneumonic effusion continued chest tube drainage. Minimal output from the chest tube or last [address] chest today and based upon results would likely need removal of chest tube heparin would have to be held prior to removal (4) History of pulmonary embolism Current Visit: Yes Status: Acute He has been transitioned to IV heparin infusion dosed by pharmacy. This point to be interrupted prior to removal of chest tube he understands he will be at increased risk for venous thrombus embolism during this time (5) JUAN (obstructive sleep apnea) Current Visit: Yes Status: Acute We will need outpatient polysomnogram while inpatient would continue BiPAP at night Subjective Principal diagnosis: Pneumonia Interval history: Patient has done relatively well over last 24 hours. Has remained hemodynamically stable still high flow oxygen because being weaned down is currently on between 10-13 L. He wore BiPAP temporarily overnight about 3 hours been a "too dry and had to take it off. He says his breathing much better and generally is feeling better he is eating well without issue Objective PUL Vital signs: Last Vital Signs Temp 97.6 F 11/10/17 23:32 Pulse 76 11/11/17 04:19 Resp 23 11/11/17 04:19 BP 135/95 11/11/17 04:19 Pulse Ox 96 11/11/17 04:19 General appearance: no acute distress ENT: oropharynx moist Neck: supple Effort: normal Auscultation: left: diminished breath sounds, rales, right: clear Cardiovascular: regular rate and rhythm Gastrointestinal: normoactive bowel sounds Extremities: edema (Pitting edema bilaterally noted today) Musculoskeletal: no deformities normal mental status, non-focal exam Results - Laboratory Findings CBC and BMP: 11/11/17 03:24 11/11/17 03:24 ABG ABG pH 7.39 pH Units (7.32-7.45) 11/10/17 05:08 ABG pCO2 44 mmHg (35-45) 11/10/17 05:08 ABG pO2 62 mmHg (85-104) L 11/10/17 05:08 ABG O2 Saturation 91 % (95-98) L 11/10/17 05:08 PT/INR, D-dimer PT 12.8 Seconds (9.4-12.1) H 11/09/17 14:46 D-Dimer 1944 ng/mLFEU (0-500) H 11/07/17 00:09 Abnormal lab findings: Abnormal lab results WBC 17.1 K/mcL (4.3-11.1) H 11/11/17 03:24 RBC 3.56 M/mcL (4.19-5.50) L 11/11/17 03:24 Hgb 11.0 g/dL (12.9-16.9) L 11/11/17 03:24 Hct 32.5 % (37.5-50.1) L 11/11/17 03:24 Plt Count 443 K/mcL (140-400) H 11/11/17 03:24 MPV 9.2 fL (9.4-12.4) L 11/11/17 03:24 Neutrophils # 14.7 K/mcL (1.6-8.9) H 11/11/17 03:24 Nucleated RBCs/100 WBC 0.2 /100 WBC (0) H 11/09/17 15:34 Reactive Lymphocytes Present (Not Present) A 11/08/17 02:10 PT 12.8 Seconds (9.4-12.1) H 11/09/17 14:46 APTT 68.2 Seconds (26.0-36.0) H 11/11/17 00:16 D-Dimer 1944 ng/mLFEU (0-500) H 11/07/17 00:09 ABG pO2 62 mmHg (85-104) L 11/10/17 05:08 ABG Total CO2 28 mEq/L (20-26) H 11/10/17 05:08 ABG O2 Saturation 91 % (95-98) L 11/10/17 05:08 Sodium 135 mEq/L (136-145) L 11/11/17 03:24 BUN 33 mg/dL (6-20) H 11/11/17 03:24 BUN/Creatinine Ratio 27 (6-26) H 11/11/17 03:24 Glucose 362 mg/dL (70-105) H 11/11/17 03:24 POC Glucose 335 mg/dL (70-99) H 11/09/17 19:38 Hemoglobin A1c 6.6 % (-5.6) H 11/07/17 04:58 Calculated Osmolality 302 (280-300) H 11/11/17 03:24 Magnesium 2.7 mg/dL (1.6-2.6) H 11/10/17 05:05 Albumin 3.4 g/dL (3.5-5.7) L 11/09/17 05:22 Albumin/Globulin Ratio 1.0 (1.1-2.2) L 11/09/17 05:22 HDL Cholesterol 29 mg/dL (40-59) L 11/07/17 04:58 Urine Protein 100 mg/dL (Neg-Trace) H 11/07/17 08:30 Urine Bilirubin Small (Negative) H 11/07/17 08:30 Urine Bacteria Many per hpf (None-Few) H 11/07/17 08:30 Pleural Appearance Bloody (Clear) A 11/09/17 12:56 Pleural RBC 0.070 M/mcL (0.000-0.002) H 11/09/17 12:56 Pleural Tot Nuc Cell 7045 TNC/mcL (0-1000) H 11/09/17 12:56 Vancomycin Trough 13 mcg/mL (5-10) H 11/08/17 20:13 - Clinical Findings Intake & Output: Intake & Output 11/10/17 11/10/17 11/11/17 15:59 23:59 07:59 Intake Total 1251 / 1251 1399 / 1399 410 / 410 Output Total 670 / 670 1000 / 1000 400 / 400 Balance 581 / 581 399 / 399 10 / 10 Weight 201.7 kg Consult Discharge Plan - Plan Referrals: Dali Fried CNP [Primary Care Provider] - 11/17/17 10:00 am
[2017-11-11] MEDS: Insulin LISPRO 300 UNITS/3 ML VIAL SQ SCH ×5 (07:58→20:46)
[2017-11-11] MEDS: MOM Conc 10 ML UD.LIQ PO SCH (07:58)
[2017-11-11] MEDS ORDERED: Furosemide 40 MG/4 ML VIAL IVP ONE (09:09)
[2017-11-11] MEDS: *HR* HYDROcodone/Acet 10/325 mg TABLET PO PRN ×2 (10:31→15:19)
[2017-11-11] MEDS ORDERED: Alteplase (Cathflo) 10 MG in 0.9 % Sodium Chloride 30 ML IX ONE (15:00)
--- NOTE | 2017-11-11 15:07 | Event Note ---
Date of Encounter: 11/11/17 Time of Encounter: 15:[address] scan. Persistent loculated effusion plan for instillation of TPA with likely placement of additional small bore chest tube to complete drainage. Case discussed with CT surgery Dr. Casiano along with interventional radiologist Dr. Aguilera. Heparin to be turned off at 6 AM tomorrow pending procedure
--- NOTE | 2017-11-11 15:19 | Internal Med Progress Note ---
Date of Encounter: 11/11/17 Time of Encounter: 10:45 - Assessment and plan (1) Acute and chronic respiratory failure with hypoxia Current Visit: Yes Status: Acute Assessment and plan: Stable. Patient currently on 12 L high flow nasal cannula. Pulmonology following. Wean FiO2 as tolerated. Pulmonary toilet. Wean steroids to oral prednisone. high risk for complications (2) PNA (pneumonia) Current Visit: Yes Status: Suspected Assessment and plan: With complicated parapneumonic effusion. Pleural fluid culture is negative. Continue Zosyn. We will stop vancomycin and azithromycin. CT scan of the chest repeated shows loculated effusion. Discussed with pulmonology. Plan for possible TPA/chest tube insertion at location of loculated effusion. Qualifiers: Pneumonia type: due to methicillin-resistant Staphylococcus aureus (MRSA) Laterality: left Lung location: unspecified part of lung Qualified Code(s): J15.212 - Pneumonia due to Methicillin resistant Staphylococcus aureus (3) Chest pain Current Visit: Yes Status: Acute Assessment and plan: Improving. Due to chest tube placement and parapneumonic effusion Qualifiers: Chest pain type: unspecified Qualified Code(s): R07.9 - Chest pain, unspecified (4) H/O deep venous thrombosis Current Visit: Yes Status: Chronic Assessment and plan: Currently on IV heparin (5) Diabetes mellitus Current Visit: Yes Status: Chronic Assessment and plan: Blood sugars remain uncontrolled. Will increase his Levemir dosage to 30 units twice daily. Continue high correctional sliding scale. Blood sugars should improve with decreasing steroid dose. Qualifiers: Diabetes mellitus type: type 2 Diabetes mellitus long winder tender insulin use: without senior living use Diabetes mellitus complication status: without complication Qualified Code(s): E11.9 - Type 2 diabetes mellitus without complications (6) Hypertension Current Visit: Yes Status: Chronic Assessment and plan: Blood pressure is elevated today. Patient not on any medications at this time. He does have pedal edema and received Lasix earlier today. We will place him on lisinopril. Qualifiers: Hypertension type: essential hypertension Qualified Code(s): I10 - Essential (primary) hypertension (7) DVT prophylaxis Current Visit: Yes Status: Acute Assessment and plan: On IV heparin (8) JUAN (obstructive sleep apnea) Current Visit: Yes Status: Acute Assessment and plan: Use BiPAP as needed - Time Spent With Patient Total time spent is greater than 50% in coordination of care (as documented) at patient's floor/unit and/or counseling patient: - Subjective Interval history: Patient is recovering well. While he does feel better, he continues to require high levels of O2 supplementation. Pulmonology following. Has chest pain at site of chest tube insertion. Does have cough. No sputum production. - Constitutional Vitals: Temp Pulse Resp BP Pulse Ox 98.0 F 77 18 151/93 95 11/11/17 11:34 11/11/17 11:58 11/11/17 11:37 11/11/17 07:42 11/11/17 14:14 General appearance: Present: cooperative, mild distress, A&O X 3, morbidly obese , obese, answers questions appropriately - Neck Neck exam general surgery: Present: supple, trachea midline. Absent: lymphadenopathy - Respiratory Respiratory exam: Present: decreased breath sounds (Left base), CTAB. Absent: accessory muscle use, rales, rhonchi, wheezes Additional comments: Chest tube in place in the left pleural space - Cardiovascular Cardiovascular exam: Present: RRR, +S1, +S2. Absent: diastolic murmur, gallop, rubs, systolic murmur - GI/Abdominal GI/Abdominal exam: Present: normal bowel sounds, soft, no peritoneal signs. Absent: distended, tenderness - Extremities Exam Extremities exam: Present: pedal edema, warm, radial pulses palpable and symmetrical. Absent: calf tenderness, cyanotic Internal Medicine: Result - Labs CBC & Chem 7: 11/11/17 03:24 11/11/17 03:24 Labs: Short CBC 11/11/17 Range/Units 03:24 WBC 17.1 H (4.3-11.1) K/mcL Hgb 11.0 L (12.9-16.9) g/dL Hct 32.5 L (37.5-50.1) % Plt Count 443 H (140-400) K/mcL Neutrophils # 14.7 H (1.6-8.9) K/mcL BMP 11/11/17 03:24 Sodium 135 L Potassium 4.3 Chloride 100 Carbon Dioxide 26 BUN 33 H Creatinine 1.21 Glucose 362 H Calcium 8.8 - ABG Interpretation ABG results: ABG ABG pH 7.39 pH Units (7.32-7.45) 11/10/17 05:08 ABG pCO2 44 mmHg (35-45) 11/10/17 05:08 ABG pO2 62 mmHg (85-104) L 11/10/17 05:08 ABG O2 Saturation 91 % (95-98) L 11/10/17 05:08 PT/INR, D-dimer PT 12.8 Seconds (9.4-12.1) H 11/09/17 14:46 D-Dimer 1944 ng/mLFEU (0-500) H 11/07/17 00:09 - Impressions Impressions Chest X-Ray 11/10/17 15:40 IMPRESSION: No pneumothorax D/ / Oniel Cramer MD / Oniel Cramer MD Interpreting Provider: Oniel Cramer MD Chest CT 11/11/17 09:09 IMPRESSION: 1. There is a pigtail pleural catheter in the posterior left hemithorax with decreased size of the previously seen large left pleural effusion. However, there are at least three residual loculated pleural fluid collections, measuring up to 14.9 cm in maximum dimension. This may be indicative of empyema, but assessment is limited without IV contrast. Of note, loculation is not appreciated on the previous CT angiography dated 11/06/2017. Correlation with fluid analysis is recommended. 2. Mildly enlarged prevascular mediastinal lymph node, increased from the previous study, likely reactive. 3. Small amount of pleural gas in the left hemithorax, compatible with recent procedure. D/ / 11/11/2017 10:20:39 Violeta Aggarwal / [email or web address] Interpreting Provider: Violeta Aggarwal Consult Discharge Plan - Plan Referrals: Dali Fried, NUT CHOPPER [Primary Care Provider] - 11/17/17 10:00 am
[2017-11-11] MEDS: Insulin DETEMIR 100 UNIT/ML X5UNITS SQ SCH ×2 (16:18→20:44)
[2017-11-12] MEDS: Piperacillin/Tazobactam 3.375 GM in 0.9 % Sodium Chloride Mini Bag 100 ML IVPB SCH ×4 (00:06→23:52)
[2017-11-12] MEDS: *HR* Heparin 5,000 UNIT/ML VIAL IVP PRN (00:45)
[2017-11-12] MEDS: *HR* HYDROcodone/Acet 10/325 mg TABLET PO PRN ×2 (02:14→21:25)
[2017-11-12 03:20] LABS: Basophils # 0.1 K/mcL (0.0-0.2); Basophils % 0.3 %; Eosinophils % 0.1 %; Hematocrit 34.6 % (37.5-50.1); Hemoglobin 11.9 g/dL (12.9-16.9); Immature Granulocytes % 4.5 % (0-4); Immature Platelets 1.8 % (1.1-6.1); Lymphocytes # 1.6 K/mcL (0.6-4.6); Mean Corpuscular HGB Conc 34.4 g/dL (31.6-35.5); Mean Corpuscular Hemoglobin 31.1 pg (28.0-33.3); Mean Corpuscular Volume 90.3 fL (83.0-100.0); Monocytes # 1.8 K/mcL (0.0-1.3); Monocytes % 9.8 %; Neutrophils # 13.9 K/mcL (1.6-8.9); Platelet Count 536 K/mcL (140-400); Red Blood Count 3.83 M/mcL (4.19-5.50); Red Cell Distribution Width 12.8 % (11.5-14.5); Segmented Neutrophils % 76.3 %
[2017-11-12] MEDS: Ipratropium/Albuterol Neb 3 ML IH SCH ×6 (03:29→23:38)
[2017-11-12] MEDS: Heparin 25,000 UNIT/500 ML D5W 25,000 UNIT/500 ML BAG IVC SCH ×3 (03:32→19:55)
[2017-11-12 04:07] LABS: BUN/Creatinine Ratio 25 (6-26); Blood Urea Nitrogen 31 mg/dL (6-20); Calcium 8.4 mg/dL (8.6-10.3); Carbon Dioxide 27 mEq/L (23-29); Chloride 103 mEq/L (98-107); Glucose 228 mg/dL (70-105); Osmolality,Calculated 302 (280-300); Potassium 3.9 mEq/L (3.5-5.1); Sodium 139 mEq/L (136-145); eGFR For African Americans > 60 (> 60); eGFR For Non-African Americans > 60 (> 60)
--- NOTE | 2017-11-12 06:49 | Pulmonology Progress Note ---
Date of Encounter: 11/12/17 Time of Encounter: 06:49 Assessment and Plan (1) Acute respiratory failure with hypoxia Current Visit: Yes Status: Acute This is secondary to pneumonia and pleural effusion and is improving. Continue high flow nasal cannula today would recommend using BiPAP at night. Goal saturation around 89-92% I suspect a component of hydrostatic pulmonary edema they have given the patient dose of Lasix (2) PNA (pneumonia) Current Visit: Yes Status: Suspected Organism unclear at this time. I discussed the case again with pharmacy and plan to cont Pip/Tazo at this time was plan for de-escalation to likely Augmentin which she can continue to take at home for at least 3 weeks pending radiographic resolution of pneumonia Qualifiers: Pneumonia type: due to methicillin-resistant Staphylococcus aureus (MRSA) Laterality: left Lung location: unspecified part of lung Qualified Code(s): J15.212 - Pneumonia due to Methicillin resistant Staphylococcus aureus (3) Pleural effusion Current Visit: Yes Status: Acute Loculated complicated parapneumonic effusion I suspect the majority of the lower aspects of loculations have resolved and he will need drainage of persistent upper fluid collection case discussed with interventional radiology and they will see the patient today I also discussed the case with the cardiothoracic surgeon Dr. Casiano who agreed with the conservative plan at this time (4) History of pulmonary embolism Current Visit: Yes Status: Acute He has been transitioned to IV heparin infusion dosed by pharmacy. This point to be interrupted prior to removal of chest tube he understands he will be at increased risk for venous thrombus embolism during this time (5) JUAN (obstructive sleep apnea) Current Visit: Yes Status: Acute We will need outpatient polysomnogram while inpatient would continue BiPAP at night Subjective Principal diagnosis: Pneumonia Interval history: Patient has done relatively well over last 24 hours. After instillation of tPA into the pleural space he had a about 400 mL of serosanguineous fluid that was removed. Remains on high flow nasal cannula but he says he feels comfortable Objective PUL Vital signs: Last Vital Signs Temp 97.8 F 11/12/17 03:11 Pulse 104 11/12/17 03:11 Resp 18 11/12/17 03:29 BP 107/70 11/12/17 03:11 Pulse Ox 92 11/12/17 03:29 General appearance: no acute distress ENT: oropharynx moist Auscultation: left: diminished breath sounds, right: clear Cardiovascular: regular rate and rhythm Gastrointestinal: normoactive bowel sounds Extremities: edema (Trace bilateral but nonpitting today) normal mental status, non-focal exam mood appropriate Results - Laboratory Findings CBC and BMP: 11/12/17 03:06 11/12/17 03:06 ABG ABG pH 7.39 pH Units (7.32-7.45) 11/10/17 05:08 ABG pCO2 44 mmHg (35-45) 11/10/17 05:08 ABG pO2 62 mmHg (85-104) L 11/10/17 05:08 ABG O2 Saturation 91 % (95-98) L 11/10/17 05:08 PT/INR, D-dimer PT 12.8 Seconds (9.4-12.1) H 11/09/17 14:46 D-Dimer 1944 ng/mLFEU (0-500) H 11/07/17 00:09 Abnormal lab findings: Abnormal lab results WBC 18.3 K/mcL (4.3-11.1) H 11/12/17 03:06 RBC 3.83 M/mcL (4.19-5.50) L 11/12/17 03:06 Hgb 11.9 g/dL (12.9-16.9) L 11/12/17 03:06 Hct 34.6 % (37.5-50.1) L 11/12/17 03:06 Plt Count 536 K/mcL (140-400) H 11/12/17 03:06 MPV 9.0 fL (9.4-12.4) L 11/12/17 03:06 Immature Gran % 4.5 % (0-4) H 11/12/17 03:06 Neutrophils # 13.9 K/mcL (1.6-8.9) H 11/12/17 03:06 Monocytes # 1.8 K/mcL (0.0-1.3) H 11/12/17 03:06 Nucleated RBCs/100 WBC 0.2 /100 WBC (0) H 11/09/17 15:34 Reactive Lymphocytes Present (Not Present) A 11/08/17 02:10 PT 12.8 Seconds (9.4-12.1) H 11/09/17 14:46 APTT 56.0 Seconds (26.0-36.0) H 11/12/17 00:04 D-Dimer 1944 ng/mLFEU (0-500) H 11/07/17 00:09 ABG pO2 62 mmHg (85-104) L 11/10/17 05:08 ABG Total CO2 28 mEq/L (20-26) H 11/10/17 05:08 ABG O2 Saturation 91 % (95-98) L 11/10/17 05:08 BUN 31 mg/dL (6-20) H 11/12/17 03:06 Glucose 228 mg/dL (70-105) H 11/12/17 03:06 POC Glucose 285 mg/dL (70-99) H 11/11/17 20:11 Hemoglobin A1c 6.6 % (-5.6) H 11/07/17 04:58 Calculated Osmolality 302 (280-300) H 11/12/17 03:06 Calcium 8.4 mg/dL (8.6-10.3) L 11/12/17 03:06 Magnesium 2.7 mg/dL (1.6-2.6) H 11/10/17 05:05 Albumin 3.4 g/dL (3.5-5.7) L 11/09/17 05:22 Albumin/Globulin Ratio 1.0 (1.1-2.2) L 11/09/17 05:22 HDL Cholesterol 29 mg/dL (40-59) L 11/07/17 04:58 Procalcitonin 9.87 ng/mL (<=0.10) H 11/08/17 16:09 Urine Protein 100 mg/dL (Neg-Trace) H 11/07/17 08:30 Urine Bilirubin Small (Negative) H 11/07/17 08:30 Urine Bacteria Many per hpf (None-Few) H 11/07/17 08:30 Pleural Appearance Bloody (Clear) A 11/09/17 12:56 Pleural RBC 0.070 M/mcL (0.000-0.002) H 11/09/17 12:56 Pleural Tot Nuc Cell 7045 TNC/mcL (0-1000) H 11/09/17 12:56 Vancomycin Trough 13 mcg/mL (5-10) H 11/08/17 20:13 - Clinical Findings Intake & Output: Intake & Output 11/11/17 11/11/17 11/12/17 15:59 23:59 07:59 Intake Total 1760 / 1760 740 / 740 750 / 750 Output Total 3040 / 3040 1390 / 1390 250 / 250 Balance -1280 / -1280 -650 / -650 500 / 500 Weight 199.8 kg Consult Discharge Plan - Plan Referrals: Dali Fried, MICHAELA [Primary Care Provider] - 11/17/17 10:00 am
[2017-11-12] MEDS: predniSONE 20 MG TABLET PO SCH (08:28)
[2017-11-12] MEDS: MOM Conc 10 ML UD.LIQ PO SCH (08:29)
[2017-11-12] MEDS: Insulin LISPRO 300 UNITS/3 ML VIAL SQ SCH ×7 (08:32→21:26)
[2017-11-12] MEDS: Insulin DETEMIR 100 UNIT/ML X5UNITS SQ SCH ×2 (08:34→21:26)
--- NOTE | 2017-11-12 14:30 | IR Procedure Note ---
Date of procedure: 11/12/17 Consent Obtained: Written consent Timeout: Correct patient and procedure verified, Correct site verified, Time out performed, Skin prep completed Local anesthetic: Lidocaine 1% Indications: left chest loculated effusion Procedure Performed: left thoracentesis Was there an assistant branch operations manager present: No Site/Technique: left, 8F sheath Results/Findings: 110cc bloody fluid removed Estimated blood loss (cc): 2 Complications: None; Tolerated procedure well Post Procedure Treatment Plan: dc to floor Specimen: bloody pleural fluid
[2017-11-12] MEDS ORDERED: Alteplase (Cathflo) 10 MG in 0.9 % Sodium Chloride 30 ML IX ONE (14:45)
--- NOTE | 2017-11-12 15:22 | Event Note ---
Date of Encounter: 11/12/17 Time of Encounter: 15:20 Patient with a good response to administration of intrapleural tPA yesterday. Still has some residual fluid collection around the chest tube catheter. We will administer another 10 mg of tPA at this time monitor for response. The patient returned from IR status post aspiration of additional fluid collection. Generally he feels better and remains clinically stable with decreasing oxygen requirement. Heparin infusion restarted
--- NOTE | 2017-11-12 16:21 | Internal Med Progress Note ---
Date of Encounter: 11/12/17 Time of Encounter: 10:20 - Assessment and plan (1) Acute and chronic respiratory failure with hypoxia Current Visit: Yes Status: Acute Assessment and plan: Due to pneumonia with complicated parapneumonic effusion. O2 requirement continues to improve slowly. Currently on 9 L high flow nasal cannula. Continue to treat underlying pneumonia and parapneumonic effusion. Wean FiO2 as tolerated. High risk for complications. (2) PNA (pneumonia) Current Visit: Yes Status: Suspected Assessment and plan: Continue IV Zosyn. Pulmonology following. Patient has complicated parapneumonic effusion with loculations. Will most likely need another chest tube. Pleural fluid culture has been negative. Qualifiers: Pneumonia type: due to methicillin-resistant Staphylococcus aureus (MRSA) Laterality: left Lung location: unspecified part of lung Qualified Code(s): J15.212 - Pneumonia due to Methicillin resistant Staphylococcus aureus (3) Chest pain Current Visit: Yes Status: Acute Assessment and plan: Due to chest tube. Controlled Qualifiers: Chest pain type: unspecified Qualified Code(s): R07.9 - Chest pain, unspecified (4) H/O deep venous thrombosis Current Visit: Yes Status: Chronic Assessment and plan: IV heparin held for planned chest tube placement later today. We will resume after chest tube has been placed (5) Diabetes mellitus Current Visit: Yes Status: Chronic Assessment and plan: Blood sugars remained elevated but better controlled. We will increase his Levemir dosage further. Continue current sliding scale insulin Qualifiers: Diabetes mellitus type: type 2 Diabetes mellitus medical parasitologist insulin use: without medical parasitologist use Diabetes mellitus complication status: without complication Qualified Code(s): E11.9 - Type 2 diabetes mellitus without complications (6) Hypertension Current Visit: Yes Status: Chronic Assessment and plan: Blood pressure is well controlled. Continue lisinopril Qualifiers: Hypertension type: essential hypertension Qualified Code(s): I10 - Essential (primary) hypertension (7) DVT prophylaxis Current Visit: Yes Status: Acute Assessment and plan: IV heparin after patient has chest tube placed (8) JUAN (obstructive sleep apnea) Current Visit: Yes Status: Chronic Assessment and plan: Use BiPAP as needed - Time Spent With Patient Total time spent is greater than 50% in coordination of care (as documented) at patient's floor/unit and/or counseling patient: - Subjective Interval history: Patient is feeling better overall. Denies any fever or chills overnight. Awaiting evaluation by IR for removal of current chest tube and placement of the chest revealed loculated effusion per CT scan. Did have good response to TPA that was given yesterday. - Constitutional Vitals: Temp Pulse Resp BP Pulse Ox 98.6 F 110 20 133/96 93 11/12/17 11:42 11/12/17 14:56 11/12/17 15:34 11/12/17 14:56 11/12/17 15:34 General appearance: Present: cooperative, mild distress, A&O X 3, morbidly obese , obese, answers questions appropriately - Neck Neck exam general surgery: Present: supple, trachea midline. Absent: lymphadenopathy - Respiratory Respiratory exam: Present: decreased breath sounds (left base). Absent: accessory muscle use, rales, rhonchi, wheezes Additional comments: Chest tube in place in the left pleural space - Cardiovascular Cardiovascular exam: Present: RRR, +S1, +S2. Absent: diastolic murmur, gallop, rubs, systolic murmur - GI/Abdominal GI/Abdominal exam: Present: normal bowel sounds, soft, no peritoneal signs. Absent: distended, tenderness - Extremities Exam Extremities exam: Present: pedal edema, warm, radial pulses palpable and symmetrical. Absent: calf tenderness, cyanotic - Neurological Exam Neurological exam: Present: CN II-XII intact, oriented X3, no focal deficits. Absent: facial droop, speech deficit Internal Medicine: Result - Labs CBC & Chem 7: 11/12/17 03:06 11/12/17 03:06 Labs: Short CBC 11/12/17 Range/Units 03:06 WBC 18.3 H (4.3-11.1) K/mcL Hgb 11.9 L (12.9-16.9) g/dL Hct 34.6 L (37.5-50.1) % Plt Count 536 H (140-400) K/mcL Neutrophils # 13.9 H (1.6-8.9) K/mcL BMP 11/12/17 03:06 Sodium 139 Potassium 3.9 Chloride 103 Carbon Dioxide 27 BUN 31 H Creatinine 1.25 Glucose 228 H Calcium 8.4 L - ABG Interpretation ABG results: ABG ABG pH 7.39 pH Units (7.32-7.45) 11/10/17 05:08 ABG pCO2 44 mmHg (35-45) 11/10/17 05:08 ABG pO2 62 mmHg (85-104) L 11/10/17 05:08 ABG O2 Saturation 91 % (95-98) L 11/10/17 05:08 PT/INR, D-dimer PT 12.8 Seconds (9.4-12.1) H 11/09/17 14:46 D-Dimer 1944 ng/mLFEU (0-500) H 11/07/17 00:09 - Impressions Impressions Chest X-Ray 11/10/17 06:00 IMPRESSION: New small bore catheter in a left hemothorax. There is a tiny pneumothorax in the apices. There is decrease in the amount of pleural fluid in the left lung. There is fullness in the left hilar region which could be in part related to collapse. A underlying mass cannot be excluded. Follow-up to complete resolution is suggested. D/ / 11/10/2017 08:33:10 Karon Smith MD / juan Interpreting Provider: Karon Smith MD Chest CT 11/11/17 09:09 IMPRESSION: 1. There is a pigtail pleural catheter in the posterior left hemithorax with decreased size of the previously seen large left pleural effusion. However, there are at least three residual loculated pleural fluid collections, measuring up to 14.9 cm in maximum dimension. This may be indicative of empyema, but assessment is limited without IV contrast. Of note, loculation is not appreciated on the previous CT angiography dated 11/06/2017. Correlation with fluid analysis is recommended. 2. Mildly enlarged prevascular mediastinal lymph node, increased from the previous study, likely reactive. 3. Small amount of pleural gas in the left hemithorax, compatible with recent procedure. D/ / 11/11/2017 10:20:39 Violeta Aggarwal / zeynep Interpreting Provider: Violeta Aggarwal Chest X-Ray 11/11/17 17:52 IMPRESSION: No significant change when compared the previous examination. Specifically, small bore catheter is in place. Unchanged diffuse opacity throughout the left lung, with a masslike opacity seen more medially D/ / Juan Ibarra MD / Juan Ibarra MD Interpreting Provider: Juan Ibarra MD Chest X-Ray 11/12/17 05:45 IMPRESSION: Large multiloculated left pleural effusion appears worsened from prior chest x-ray 11/11/2017 despite presence of left chest tube. Likely some worsened associated compressive atelectasis as well. D/ / 11/12/2017 08:26:51 [facility] Engel MD / [facility] Interpreting Provider: Joey Engel MD Needle Aspiration CT 11/12/17 08:00 IMPRESSION: Successful ultrasound guided left anterior loculated effusion thoracentesis. D/ / 11/12/2017 15:46:29 Iwona Aguilera MD / zeynep Interpreting Provider: Iwona Aguilera MD Consult Discharge Plan - Plan Referrals: Dali Fried CNP [Primary Care Provider] - 11/17/17 10:00 am
[2017-11-12 23:02] LABS: Heparin anti-factor XA UFH 1.22 IU/mL (0.30-0.70)
[2017-11-13] MEDS: Ipratropium/Albuterol Neb 3 ML IH SCH ×5 (04:15→20:11)
[2017-11-13] MEDS: Heparin 25,000 UNIT/500 ML D5W 25,000 UNIT/500 ML BAG IVC SCH (04:18)
[2017-11-13 05:39] LABS: Hematocrit 30.3 % (37.5-50.1); Hemoglobin 10.3 g/dL (12.9-16.9); Lymphocytes # 2.3 K/mcL (0.6-4.6); Mean Corpuscular Hemoglobin 30.8 pg (28.0-33.3); Mean Corpuscular Volume 90.7 fL (83.0-100.0); Platelet Count 405 K/mcL (140-400); Red Blood Count 3.34 M/mcL (4.19-5.50); Red Cell Distribution Width 13.2 % (11.5-14.5)
[2017-11-13 05:56] LABS: BUN/Creatinine Ratio 22 (6-26); Blood Urea Nitrogen 26 mg/dL (6-20); Calcium 7.7 mg/dL (8.6-10.3); Carbon Dioxide 31 mEq/L (23-29); Chloride 101 mEq/L (98-107); Glucose 233 mg/dL (70-105); Osmolality,Calculated 292 (280-300); Potassium 4.2 mEq/L (3.5-5.1); Sodium 135 mEq/L (136-145); eGFR For African Americans > 60 (> 60); eGFR For Non-African Americans > 60 (> 60)
[2017-11-13 06:17] LABS: Neutrophils # 17.2 K/mcL (1.6-8.9); Platelet Estimate Normal (Normal)
--- NOTE | 2017-11-13 06:23 | Pulmonology Progress Note ---
Date of Encounter: 11/13/17 Time of Encounter: 06:23 Assessment and Plan (1) Acute respiratory failure with hypoxia Current Visit: Yes Status: Acute This is secondary to pneumonia and pleural effusion and is improving. Continue high flow nasal cannula today would recommend using BiPAP at night. Goal saturation around 89-92% (2) PNA (pneumonia) Current Visit: Yes Status: Suspected Organism unclear at this time. I discussed the case again with pharmacy and plan to cont Pip/Tazo at this time was plan for de-escalation to likely Augmentin which he can continue to take at home for at least 3 weeks pending radiographic resolution of pneumonia Qualifiers: Pneumonia type: due to methicillin-resistant Staphylococcus aureus (MRSA) Laterality: left Lung location: unspecified part of lung Qualified Code(s): J15.212 - Pneumonia due to Methicillin resistant Staphylococcus aureus (3) Pleural effusion Current Visit: Yes Status: Acute Clinical and radiographic evidence of improvement with our interventions thus far. No further drainage out of the chest tube and looks like animal residual fluid collection plan to stop heparin now on pull chest tube approximately 2 hours (4) History of pulmonary embolism Current Visit: Yes Status: Acute We will restart home NOAC today (5) JUAN (obstructive sleep apnea) Current Visit: Yes Status: Chronic We will need outpatient polysomnogram while inpatient would continue BiPAP at night Subjective Principal diagnosis: Pneumonia Interval history: Mr. Mckinley has done very well overnight. With repeat instillation of TPA into the intrapleural space to the chest tube he had another approximate 2 L drainage. He says he feels remarkably better after this. He also had aspiration from the additional fluid collection overall chest x-ray appears much improved. He is down to 8 L high flow nasal cannula and clinically appears that we could not decreases even further. He remains afebrile Objective PUL Vital signs: Last Vital Signs Temp 98.6 F 11/13/17 03:21 Pulse 88 11/13/17 03:21 Resp 16 11/13/17 04:17 BP 113/81 11/13/17 03:21 Pulse Ox 95 11/13/17 04:17 General appearance: no acute distress Auscultation: left: diminished breath sounds, right: clear Cardiovascular: regular rate and rhythm Gastrointestinal: normoactive bowel sounds Integumentary: normal Extremities: no cyanosis, no edema, no clubbing, pink and warm normal mental status, non-focal exam, pupils equal and round mood appropriate Results - Laboratory Findings CBC and BMP: 11/13/17 04:00 11/13/17 04:00 ABG ABG pH 7.39 pH Units (7.32-7.45) 11/10/17 05:08 ABG pCO2 44 mmHg (35-45) 11/10/17 05:08 ABG pO2 62 mmHg (85-104) L 11/10/17 05:08 ABG O2 Saturation 91 % (95-98) L 11/10/17 05:08 PT/INR, D-dimer PT 12.8 Seconds (9.4-12.1) H 11/09/17 14:46 D-Dimer 1944 ng/mLFEU (0-500) H 11/07/17 00:09 Abnormal lab findings: Abnormal lab results WBC 19.5 K/mcL (4.3-11.1) H 11/13/17 04:00 RBC 3.34 M/mcL (4.19-5.50) L 11/13/17 04:00 Hgb 10.3 g/dL (12.9-16.9) L D 11/13/17 04:00 Hct 30.3 % (37.5-50.1) L 11/13/17 04:00 Plt Count 405 K/mcL (140-400) H 11/13/17 04:00 MPV 9.0 fL (9.4-12.4) L 11/13/17 04:00 Immature Gran % 4.5 % (0-4) H 11/12/17 03:06 Neutrophils # 17.2 K/mcL (1.6-8.9) H 11/13/17 04:00 Monocytes # 1.8 K/mcL (0.0-1.3) H 11/12/17 03:06 Nucleated RBCs/100 WBC 0.2 /100 WBC (0) H 11/09/17 15:34 Reactive Lymphocytes Present (Not Present) A 11/08/17 02:10 PT 12.8 Seconds (9.4-12.1) H 11/09/17 14:46 APTT 70.3 Seconds (26.0-36.0) H D 11/13/17 05:30 D-Dimer 1944 ng/mLFEU (0-500) H 11/07/17 00:09 Heparin Anti-Xa, Unfract 1.22 IU/mL (0.30-0.70) H* 11/12/17 22:25 ABG pO2 62 mmHg (85-104) L 11/10/17 05:08 ABG Total CO2 28 mEq/L (20-26) H 11/10/17 05:08 ABG O2 Saturation 91 % (95-98) L 11/10/17 05:08 Sodium 135 mEq/L (136-145) L 11/13/17 04:00 Carbon Dioxide 31 mEq/L (23-29) H 11/13/17 04:00 BUN 26 mg/dL (6-20) H 11/13/17 04:00 Glucose 233 mg/dL (70-105) H 11/13/17 04:00 POC Glucose 209 mg/dL (70-99) H 11/12/17 21:23 Hemoglobin A1c 6.6 % (-5.6) H 11/07/17 04:58 Calcium 7.7 mg/dL (8.6-10.3) L 11/13/17 04:00 Magnesium 2.7 mg/dL (1.6-2.6) H 11/10/17 05:05 Albumin 3.4 g/dL (3.5-5.7) L 11/09/17 05:22 Albumin/Globulin Ratio 1.0 (1.1-2.2) L 11/09/17 05:22 HDL Cholesterol 29 mg/dL (40-59) L 11/07/17 04:58 Procalcitonin 9.87 ng/mL (<=0.10) H 11/08/17 16:09 Urine Protein 100 mg/dL (Neg-Trace) H 11/07/17 08:30 Urine Bilirubin Small (Negative) H 11/07/17 08:30 Urine Bacteria Many per hpf (None-Few) H 11/07/17 08:30 Pleural Appearance Bloody (Clear) A 11/09/17 12:56 Pleural RBC 0.070 M/mcL (0.000-0.002) H 11/09/17 12:56 Pleural Tot Nuc Cell 7045 TNC/mcL (0-1000) H 11/09/17 12:56 Vancomycin Trough 13 mcg/mL (5-10) H 11/08/17 20:13 - Diagnostic Findings Chest x-ray: report reviewed, image reviewed CT scan - chest: report reviewed, image reviewed - Clinical Findings Intake & Output: Intake & Output 11/12/17 11/12/17 11/13/17 15:59 23:59 07:59 Intake Total 220 / 220 1820 / 1820 590 / 590 Output Total 650 / 650 3516 / 3516 1140 / 1140 Balance -430 / -430 -1696 / -1696 -550 / -550 Weight 197.3 kg Consult Discharge Plan - Plan Referrals: Dali Fried, RECRUITMENT OFFICER [Primary Care Provider] - 11/17/17 10:00 am
[2017-11-13] MEDS: predniSONE 20 MG TABLET PO SCH (09:17)
[2017-11-13] MEDS: Piperacillin/Tazobactam 3.375 GM in 0.9 % Sodium Chloride Mini Bag 100 ML IVPB SCH (09:17)
[2017-11-13] MEDS: MOM Conc 10 ML UD.LIQ PO SCH (09:18)
[2017-11-13] MEDS: Insulin DETEMIR 100 UNIT/ML X5UNITS SQ SCH ×2 (09:26→21:32)
[2017-11-13] MEDS: Insulin LISPRO 300 UNITS/3 ML VIAL SQ SCH ×7 (09:26→21:25)
[2017-11-13] MEDS: *HR* Rivaroxaban 10 MG TABLET PO SCH (12:05)
--- NOTE | 2017-11-13 13:05 | Internal Med Progress Note ---
Date of Encounter: 11/13/17 Time of Encounter: 10:30 - Assessment and plan (1) Acute and chronic respiratory failure with hypoxia Current Visit: Yes Status: Acute Assessment and plan: Improving. Currently on 7 L high flow nasal cannula. We will continue to wean FiO2 as tolerated. Encouraged ambulation after chest tube is removed. (2) PNA (pneumonia) Current Visit: Yes Status: Acute Assessment and plan: With left-sided complicated parapneumonic effusion. Plan to remove chest tube later today. On IV antibiotics. Cultures have been negative so far. We will de-escalate antibiotics after chest tube is removed. Qualifiers: Pneumonia type: due to unspecified organism Laterality: left Lung location: unspecified part of lung Qualified Code(s): J18.9 - Pneumonia, unspecified organism (3) Chest pain Current Visit: Yes Status: Resolved Assessment and plan: Improved. Due to chest tube and left-sided parapneumonic effusion Qualifiers: Chest pain type: unspecified Qualified Code(s): R07.9 - Chest pain, unspecified (4) H/O deep venous thrombosis Current Visit: Yes Status: Chronic Assessment and plan: IV heparin held for chest tube removal. Patient will be started back on direct oral anticoagulant after chest tube has been removed. (5) Diabetes mellitus Current Visit: Yes Status: Chronic Assessment and plan: Blood sugars are much better controlled. Will continue current insulin regimen Qualifiers: Diabetes mellitus type: type 2 Diabetes mellitus jail insulin use: without jail use Diabetes mellitus complication status: without complication Qualified Code(s): E11.9 - Type 2 diabetes mellitus without complications (6) Hypertension Current Visit: Yes Status: Chronic Assessment and plan: Blood pressure remains well controlled Qualifiers: Hypertension type: essential hypertension Qualified Code(s): I10 - Essential (primary) hypertension (7) DVT prophylaxis Current Visit: Yes Status: Acute Assessment and plan: Continue anticoagulation (8) JUAN (obstructive sleep apnea) Current Visit: Yes Status: Chronic Assessment and plan: Use BiPAP as needed - Time Spent With Patient Total time spent is greater than 50% in coordination of care (as documented) at patient's floor/unit and/or counseling patient: - Subjective Interval history: Patient is feeling tired and exhausted at this time due to all the things he has gone through during this hospitalizations. He does report he is able to breathe much better. No chest pain or palpitations. - Constitutional Vitals: Temp Pulse Resp BP Pulse Ox 98.0 F 105 20 114/77 93 11/13/17 11:41 11/13/17 12:08 11/13/17 12:07 11/13/17 11:41 11/13/17 12:07 General appearance: Present: cooperative, mild distress, A&O X 3, morbidly obese , obese, answers questions appropriately - Neck Neck exam general surgery: Present: supple, trachea midline. Absent: lymphadenopathy - Respiratory Respiratory exam: Present: CTAB. Absent: accessory muscle use, rales, rhonchi, wheezes Additional comments: Chest tube in place in left pleural space - Cardiovascular Cardiovascular exam: Present: RRR, +S1, +S2. Absent: diastolic murmur, gallop, rubs, systolic murmur - Extremities Exam Extremities exam: Present: warm, radial pulses palpable and symmetrical. Absent : calf tenderness, cyanotic, pedal edema - Neurological Exam Neurological exam: Present: CN II-XII intact, oriented X3, no focal deficits, strengths equal and symetr throughout. Absent: facial droop, speech deficit Internal Medicine: Result - Labs CBC & Chem 7: 11/13/17 04:00 11/13/17 04:00 Labs: Short CBC 11/13/17 Range/Units 04:00 WBC 19.5 H (4.3-11.1) K/mcL Hgb 10.3 L D (12.9-16.9) g/dL Hct 30.3 L (37.5-50.1) % Plt Count 405 H (140-400) K/mcL Neutrophils # 17.2 H (1.6-8.9) K/mcL BMP 11/13/17 04:00 Sodium 135 L Potassium 4.2 Chloride 101 Carbon Dioxide 31 H BUN 26 H Creatinine 1.16 Glucose 233 H Calcium 7.7 L - ABG Interpretation ABG results: ABG ABG pH 7.39 pH Units (7.32-7.45) 11/10/17 05:08 ABG pCO2 44 mmHg (35-45) 11/10/17 05:08 ABG pO2 62 mmHg (85-104) L 11/10/17 05:08 ABG O2 Saturation 91 % (95-98) L 11/10/17 05:08 PT/INR, D-dimer PT 12.8 Seconds (9.4-12.1) H 11/09/17 14:46 D-Dimer 1944 ng/mLFEU (0-500) H 11/07/17 00:09 - Impressions Impressions Needle Aspiration CT 11/12/17 08:00 IMPRESSION: Successful ultrasound guided left anterior loculated effusion thoracentesis. D/ / 11/12/2017 15:46:29 Iwona Aguilera MD / [email or web address] Interpreting Provider: Iwona Aguilera MD Chest X-Ray 11/13/17 06:23 IMPRESSION: 1. Improved aeration of the left lung. 2. No discernible pneumothorax. D/ / Dakota Spicer MD / Dakota Spicer MD Interpreting Provider: Dakota Spicer MD Consult Discharge Plan - Plan Referrals: Dali Fried, PSYCHIATRIC SECURITY NURSE [Primary Care Provider] - 11/17/17 10:00 am
[2017-11-13] MEDS: *HR* HYDROcodone/Acet 10/325 mg TABLET PO PRN (21:29)
[2017-11-14] MEDS: Ipratropium/Albuterol Neb 3 ML IH SCH ×6 (00:48→20:17)
--- NOTE | 2017-11-14 06:48 | Pulmonology Progress Note ---
Date of Encounter: 11/14/17 Time of Encounter: 06:48 Assessment and Plan (1) Acute respiratory failure with hypoxia Current Visit: Yes Status: Acute This is secondary to pneumonia and pleural effusion and is improving. Continue high flow nasal cannula today would recommend using BiPAP at night. Goal saturation around 89-92% (2) PNA (pneumonia) Current Visit: Yes Status: Acute Organism unclear at this time. Continue IV antibiotics while inpatient. De-escalate to Augmentin to complete 3 weeks course He will need repeat chest CT in 3 weeks to demonstrate resolution and based upon those findings and clinical evaluation antibiotics can be continued or stopped Please schedule outpatient with pulmonary within 2-3 weeks Qualifiers: Pneumonia type: due to unspecified organism Laterality: left Lung location: unspecified part of lung Qualified Code(s): J18.9 - Pneumonia, unspecified organism (3) Pleural effusion Current Visit: Yes Status: Acute This is complicated parapneumonic effusion status post drainage (4) History of pulmonary embolism Current Visit: Yes Status: Acute Cont home NOAC (5) JUAN (obstructive sleep apnea) Current Visit: Yes Status: Chronic We will need outpatient polysomnogram while inpatient would continue BiPAP at night Pulmonary will sign off thank you very much for allowing us to participate in the care of this patient please call with any questions Subjective Principal diagnosis: Pneumonia Interval history: Mr. Mckinley has done very well overnight. Nasal cannula oxygen is also been able to be weaned off. He says he feels much better Objective PUL Vital signs: Last Vital Signs Temp 98.3 F 11/14/17 04:02 Pulse 76 11/14/17 04:02 Resp 18 11/14/17 04:55 BP 99/60 11/14/17 04:02 Pulse Ox 95 11/14/17 04:55 General appearance: no acute distress Auscultation: left: diminished breath sounds, right: clear Cardiovascular: regular rate and rhythm Gastrointestinal: normoactive bowel sounds, soft, non-tender Extremities: no cyanosis, no edema, no clubbing, pulses normal Musculoskeletal: no deformities normal mental status, non-focal exam mood appropriate Results - Laboratory Findings CBC and BMP: 11/13/17 04:00 11/13/17 04:00 ABG ABG pH 7.39 pH Units (7.32-7.45) 11/10/17 05:08 ABG pCO2 44 mmHg (35-45) 11/10/17 05:08 ABG pO2 62 mmHg (85-104) L 11/10/17 05:08 ABG O2 Saturation 91 % (95-98) L 11/10/17 05:08 PT/INR, D-dimer PT 12.8 Seconds (9.4-12.1) H 11/09/17 14:46 D-Dimer 1944 ng/mLFEU (0-500) H 11/07/17 00:09 Abnormal lab findings: Abnormal lab results WBC 19.5 K/mcL (4.3-11.1) H 11/13/17 04:00 RBC 3.34 M/mcL (4.19-5.50) L 11/13/17 04:00 Hgb 10.3 g/dL (12.9-16.9) L D 11/13/17 04:00 Hct 30.3 % (37.5-50.1) L 11/13/17 04:00 Plt Count 405 K/mcL (140-400) H 11/13/17 04:00 MPV 9.0 fL (9.4-12.4) L 11/13/17 04:00 Immature Gran % 4.5 % (0-4) H 11/12/17 03:06 Neutrophils # 17.2 K/mcL (1.6-8.9) H 11/13/17 04:00 Monocytes # 1.8 K/mcL (0.0-1.3) H 11/12/17 03:06 Nucleated RBCs/100 WBC 0.2 /100 WBC (0) H 11/09/17 15:34 Reactive Lymphocytes Present (Not Present) A 11/08/17 02:10 PT 12.8 Seconds (9.4-12.1) H 11/09/17 14:46 APTT 70.3 Seconds (26.0-36.0) H D 11/13/17 05:30 D-Dimer 1944 ng/mLFEU (0-500) H 11/07/17 00:09 Heparin Anti-Xa, Unfract 1.22 IU/mL (0.30-0.70) H* 11/12/17 22:25 ABG pO2 62 mmHg (85-104) L 11/10/17 05:08 ABG Total CO2 28 mEq/L (20-26) H 11/10/17 05:08 ABG O2 Saturation 91 % (95-98) L 11/10/17 05:08 Sodium 135 mEq/L (136-145) L 11/13/17 04:00 Carbon Dioxide 31 mEq/L (23-29) H 11/13/17 04:00 BUN 26 mg/dL (6-20) H 11/13/17 04:00 Glucose 233 mg/dL (70-105) H 11/13/17 04:00 POC Glucose 171 mg/dL (70-99) H 11/13/17 21:24 Hemoglobin A1c 6.6 % (-5.6) H 11/07/17 04:58 Calcium 7.7 mg/dL (8.6-10.3) L 11/13/17 04:00 Magnesium 2.7 mg/dL (1.6-2.6) H 11/10/17 05:05 Albumin 3.4 g/dL (3.5-5.7) L 11/09/17 05:22 Albumin/Globulin Ratio 1.0 (1.1-2.2) L 11/09/17 05:22 HDL Cholesterol 29 mg/dL (40-59) L 11/07/17 04:58 Procalcitonin 9.87 ng/mL (<=0.10) H 11/08/17 16:09 Urine Protein 100 mg/dL (Neg-Trace) H 11/07/17 08:30 Urine Bilirubin Small (Negative) H 11/07/17 08:30 Urine Bacteria Many per hpf (None-Few) H 11/07/17 08:30 Pleural Appearance Bloody (Clear) A 11/09/17 12:56 Pleural RBC 0.070 M/mcL (0.000-0.002) H 11/09/17 12:56 Pleural Tot Nuc Cell 7045 TNC/mcL (0-1000) H 11/09/17 12:56 Vancomycin Trough 13 mcg/mL (5-10) H 11/08/17 20:13 - Clinical Findings Intake & Output: Intake & Output 11/13/17 11/13/17 11/14/17 15:59 23:59 07:59 Intake Total 240 / 240 600 / 600 Output Total 590 / 590 700 / 700 450 / 450 Balance -350 / -350 -100 / -100 -450 / -450 Weight 189.2 kg Consult Discharge Plan - Plan Referrals: Dali Fried, MICHAELA [Primary Care Provider] - 11/17/17 10:00 am
[2017-11-14] MEDS: Insulin LISPRO 300 UNITS/3 ML VIAL SQ SCH ×7 (08:52→20:38)
[2017-11-14] MEDS: *HR* HYDROcodone/Acet 10/325 mg TABLET PO PRN (08:54)
[2017-11-14] MEDS: predniSONE 10 MG TABLET PO SCH (08:54)
[2017-11-14] MEDS: MOM Conc 10 ML UD.LIQ PO SCH (08:55)
[2017-11-14] MEDS: Insulin DETEMIR 100 UNIT/ML X5UNITS SQ SCH ×2 (08:55→20:45)
--- NOTE | 2017-11-14 15:29 | Internal Med Progress Note ---
Date of Encounter: 11/14/17 Time of Encounter: 09:00 - Assessment and plan (1) Acute and chronic respiratory failure with hypoxia Current Visit: Yes Status: Acute Assessment and plan: Continue O2 supplementation. Wean FiO2 as tolerated. Due to pneumonia with complicated parapneumonic effusion. (2) PNA (pneumonia) Current Visit: Yes Status: Acute Assessment and plan: With complicated parapneumonic effusion. Status post chest tube drainage. Repeat chest x-ray shows improving aeration. No pneumothorax. Continue Augmentin. Pleural fluid culture has been negative. Qualifiers: Pneumonia type: due to unspecified organism Laterality: left Lung location: unspecified part of lung Qualified Code(s): J18.9 - Pneumonia, unspecified organism (3) Chest pain Current Visit: Yes Status: Resolved Qualifiers: Chest pain type: unspecified Qualified Code(s): R07.9 - Chest pain, unspecified (4) H/O deep venous thrombosis Current Visit: Yes Status: Chronic Assessment and plan: On Xarelto (5) Diabetes mellitus Current Visit: Yes Status: Chronic Assessment and plan: Improved control. Continue current insulin regimen. Qualifiers: Diabetes mellitus type: type 2 Diabetes mellitus termite treater helper insulin use: without senior care use Diabetes mellitus complication status: without complication Qualified Code(s): E11.9 - Type 2 diabetes mellitus without complications (6) Hypertension Current Visit: Yes Status: Chronic Assessment and plan: Blood pressure remains well controlled Qualifiers: Hypertension type: essential hypertension Qualified Code(s): I10 - Essential (primary) hypertension (7) DVT prophylaxis Current Visit: Yes Status: Acute (8) JUAN (obstructive sleep apnea) Current Visit: Yes Status: Chronic Assessment and plan: Use BiPAP as needed - Time Spent With Patient Total time spent is greater than 50% in coordination of care (as documented) at patient's floor/unit and/or counseling patient: - Subjective Interval history: Patient is doing better today. No chest pain. Shortness of breath is improving. Still on 4 L O2 supplementation via nasal cannula. Chest tube was removed yesterday. No fever or chills or night sweats. - Constitutional Vitals: Temp Pulse Resp BP Pulse Ox 97.9 F 86 18 121/86 90 11/14/17 11:26 11/14/17 11:26 11/14/17 11:26 11/14/17 11:26 11/14/17 12:14 General appearance: Present: cooperative, mild distress, A&O X 3, morbidly obese , obese, answers questions appropriately - Neck Neck exam general surgery: Present: supple, trachea midline. Absent: lymphadenopathy - Respiratory Respiratory exam: Present: CTAB. Absent: accessory muscle use, rales, rhonchi, wheezes Additional comments: Improved air entry at left base - Cardiovascular Cardiovascular exam: Present: RRR, +S1, +S2. Absent: diastolic murmur, gallop, rubs, systolic murmur - Extremities Exam Extremities exam: Present: warm, radial pulses palpable and symmetrical. Absent : calf tenderness, cyanotic, pedal edema - Neurological Exam Neurological exam: Present: alert, oriented X3, no focal deficits. Absent: facial droop, speech deficit - Skin Skin exam: Present: dry, intact Internal Medicine: Result - Labs CBC & Chem 7: 11/13/17 04:00 11/13/17 04:00 - ABG Interpretation ABG results: ABG ABG pH 7.39 pH Units (7.32-7.45) 11/10/17 05:08 ABG pCO2 44 mmHg (35-45) 11/10/17 05:08 ABG pO2 62 mmHg (85-104) L 11/10/17 05:08 ABG O2 Saturation 91 % (95-98) L 11/10/17 05:08 PT/INR, D-dimer PT 12.8 Seconds (9.4-12.1) H 11/09/17 14:46 D-Dimer 1944 ng/mLFEU (0-500) H 11/07/17 00:09 Consult Discharge Plan - Plan Referrals: Dali Fried DECORATING MACHINE TENDER [Primary Care Provider] - 11/17/17 10:00 am
[2017-11-14] MEDS: *HR* Rivaroxaban 10 MG TABLET PO SCH (17:01)
[2017-11-15] MEDS: Ipratropium/Albuterol Neb 3 ML IH SCH ×4 (00:06→10:31)
[2017-11-15 04:29] LABS: Basophils % 0.2 %; Eosinophils # 0.4 K/mcL (0.0-0.6); Eosinophils % 2.1 %; Hematocrit 29.6 % (37.5-50.1); Hemoglobin 9.9 g/dL (12.9-16.9); Immature Granulocytes % 4.8 % (0-4); Lymphocytes # 2.1 K/mcL (0.6-4.6); Lymphocytes % 10.6 %; Mean Corpuscular HGB Conc 33.4 g/dL (31.6-35.5); Mean Corpuscular Hemoglobin 30.8 pg (28.0-33.3); Mean Corpuscular Volume 92.2 fL (83.0-100.0); Mean Platelet Volume 8.9 fL (9.4-12.4); Platelet Count 400 K/mcL (140-400); Red Blood Count 3.21 M/mcL (4.19-5.50); Red Cell Distribution Width 13.2 % (11.5-14.5); Segmented Neutrophils % 77.3 %
[2017-11-15 04:52] LABS: BUN/Creatinine Ratio 20 (6-26); Blood Urea Nitrogen 21 mg/dL (6-20); Carbon Dioxide 30 mEq/L (23-29); Chloride 103 mEq/L (98-107); Glucose 149 mg/dL (70-105); Osmolality,Calculated 288 (280-300); Potassium 3.9 mEq/L (3.5-5.1); Sodium 136 mEq/L (136-145); eGFR For African Americans > 60 (> 60); eGFR For Non-African Americans > 60 (> 60)
[2017-11-15] MEDS: Insulin LISPRO 300 UNITS/3 ML VIAL SQ SCH ×4 (08:11→12:35)
[2017-11-15] MEDS: predniSONE 10 MG TABLET PO SCH (08:50)
[2017-11-15] MEDS: MOM Conc 10 ML UD.LIQ PO SCH (08:50)
[2017-11-15] MEDS: Insulin DETEMIR 100 UNIT/ML X5UNITS SQ SCH (08:51)
[2017-11-15] MEDS: *HR* HYDROcodone/Acet 10/325 mg TABLET PO PRN (08:57)
[2017-11-15 11:03] VITALS: BP 130/84
--- NOTE | 2017-11-15 11:37 | Discharge Summary ---
- NOTES TO OUTPATIENT PROVIDER Notes to Outpatient Provider: Patient hospitalized with sepsis from pneumonia and complicated left parapneumonic effusion. He was also diagnosed with acute hypoxic respiratory failure. He was treated for this with IV antibiotics and with chest tube placement and thoracentesis. He did receive alteplase through his chest tube to help drain the fluid. He is now doing much better. His oxygen requirement has considerably decreased. He is clinically stable to be discharged home on oral antibiotics and will follow up with his primary care provider for further management. Orders not resulted at time of discharge: Pending orders 11/12/17 15:07 Culture,Body Fluid [RM] Stat 11/12/17 15:08 Cell Count w Diff, Pleural Fld [BF] Stat Glucose,Pleural Fluid [BF] Stat Gram Stain [RM] Stat LDH,Pleural Fluid [BF] Stat pH,Pleural Fluid [BF] Stat Date of Encounter: 11/15/17 Time of Encounter: 11:37 - Discharge Diagnosis (1) Acute and chronic respiratory failure with hypoxia Priority: Primary Status: Acute (2) PNA (pneumonia) Priority: Secondary Status: Acute Qualifiers: Pneumonia type: due to unspecified organism Laterality: left Lung location: unspecified part of lung Qualified Code(s): J18.9 - Pneumonia, unspecified organism (3) Chest pain Priority: Secondary Status: Resolved Qualifiers: Chest pain type: unspecified Qualified Code(s): R07.9 - Chest pain, unspecified (4) H/O deep venous thrombosis Priority: Secondary Status: Chronic (5) Diabetes mellitus Priority: Secondary Status: Chronic Qualifiers: Diabetes mellitus type: type 2 Diabetes mellitus long term acute care registered nurse insulin use: without senior care use Diabetes mellitus complication status: without complication Qualified Code(s): E11.9 - Type 2 diabetes mellitus without complications (6) Hypertension Priority: Secondary Status: Chronic Qualifiers: Hypertension type: essential hypertension Qualified Code(s): I10 - Essential (primary) hypertension (7) DVT prophylaxis Priority: Secondary Status: Acute (8) JUAN (obstructive sleep apnea) Priority: Secondary Status: Chronic Hospital course: Mr. Mckinley is a 46 year old male Patient with history of diabetes, obstructive sleep apnea, depression and hypertension was hospitalized with sepsis from pneumonia and complicated left parapneumonic effusion. He was also diagnosed with acute hypoxic respiratory failure. He was treated for this with IV antibiotics and had a chest tube placed into the pleural effusion. Pleural fluid analysis does not appear to show any empyema. He still required high amounts of O2 supplementation and so a repeat CT scan of the chest was done which showed loculated effusions. He was given alteplase through his chest tube to help drain the fluid. He did have increased drainage after and then underwent thoracentesis of loculated effusion. Since then his symptoms have significantly improved and chest tube was finally removed 2 days back. His oxygen requirement has considerably decreased. He is clinically stable to be discharged home on oral antibiotics and will follow up with his primary care provider for further management. He continues to require O2 supplementation due to his respiratory failure. As such I would prescribe home oxygen for him at this time. Discharge discussed with: patient, nurse - Time Spent with Patient Total time spent providing and/or coordinating discharge services: Greater than 30 minutes (35 min) - Discharge Medications Prescriptions: Amoxicillin/Clavulanate [Augmentin] 875 mg PO BID #28 tablet Lactobacillus Acidophilus [Acidophilus] 1 each PO BID #28 tablet predniSONE [PredniSONE] 10 mg PO DAILY 4 Days tablet Home Medications: DULoxetine [Cymbalta] 60 mg PO DAILY 11/06/17 [History] HYDROcodone/Acet 5/325 mg [Dawson 5-325 mg] 1 tab PO Q6H 11/06/17 [History] Hydrochlorothiazide [Microzide] 12.5 mg PO DAILY 11/06/17 [History] Lisinopril [Zestril] 20 mg PO DAILY 11/06/17 [History] Nortriptyline HCl 50 mg PO DAILY 11/06/17 [History] Pravastatin Sodium [Pravachol] 20 mg PO HS 11/06/17 [History] Rivaroxaban [Xarelto] 20 mg PO DAILY 11/06/17 [History] metFORMIN [Glucophage] 500 mg PO DAILY 11/06/17 [History] Amoxicillin/Clavulanate [Augmentin] 875 mg PO BID #28 tablet 11/15/17 [Rx] Lactobacillus Acidophilus [Acidophilus] 1 each PO BID #28 tablet 11/15/17 [Rx] predniSONE [PredniSONE] 10 mg PO DAILY 4 Days tablet 11/15/17 [Rx] Allergies/Adverse Reactions: 3 Allergy/AdvReac Type Severity Reaction Status Date / Time No Known Allergies Allergy Verified 11/06/17 20:33 Date of admission: 11/09/17 20:42 Primary care physician: Dali Fried CNP Consults: 11/09/17 09:20 Consult to Pulmonology [CONS] Routine Consulting Provider: [facility] Reason for Consult: L lung opacification. Ac respiratory failure. Call Completed: Yes 11/09/17 17:39 PICC Consult [Consult to Invasive Line Access Team] [CONS] Stat Reason for Consult: sepsis risk Line Type: EPIV Discharging clinician: Gerald Garcia Anticipated date of discharge: 11/15/17 - Constitutional Vitals: Temp Pulse Resp BP Pulse Ox 98.6 F 98 18 130/84 94 11/15/17 10:55 11/15/17 10:55 11/15/17 10:55 11/15/17 10:55 11/15/17 10:55 General appearance: Present: cooperative, mild distress, A&O X 3, morbidly obese , obese, answers questions appropriately - Respiratory Respiratory exam: Present: prolonged expiratory phase. Absent: accessory muscle use, rales, rhonchi, wheezes Additional comments: Crackles at left base - Cardiovascular Cardiovascular exam: Present: RRR, +S1, +S2. Absent: diastolic murmur, gallop, rubs, systolic murmur - GI/Abdominal GI/Abdominal exam: Present: normal bowel sounds, soft, no peritoneal signs. Absent: distended, tenderness - Extremities Exam Extremities exam: Present: warm, radial pulses palpable and symmetrical. Absent : calf tenderness, cyanotic, pedal edema - Neurological Exam Neurological exam: Present: alert, CN II-XII intact, oriented X3, no focal deficits. Absent: facial droop, speech deficit - Skin Skin exam: Present: dry, intact - Patient Status Disposition: Home, Self-Care Condition: Good Functional capacity at discharge: independent ambulation Overall status at discharge: patient is progressing back to baseline - Discharge Instructions Instructions: Amoxicillin/Clavulanate Potassium (By mouth), Probiotic (By mouth ), Acute Respiratory Distress Syndrome (DC), Acute Kidney Injury (DC), Using Oxygen at Home (GEN), Air Travel With Oxygen (GEN) Follow Up With: Dali Fried CNP [Primary Care Provider] - 11/17/17 10:00 am - Diet and Activity Activity: wear oxygen at all times Diet: diabetic diet, low fat, low cholesterol, low salt diet
[2017-11-16] MEDS ORDERED: predniSONE 20 MG TABLET PO SCH (09:00)
[2017-11-18] MEDS ORDERED: predniSONE 10 MG TABLET PO SCH (09:00)
== END 2017-11-15 13:36 | disposition home or self-care (01) | DRG 871 ==
LOC: EMEROO 17:53 → 2NENU 17:53 → SUATTDRO 22:27 → 2NENU 23:05 → 2NNU 11-09 18:08 → SUATTDRO 11-09 20:42
PROVIDERS: ADMIT Internal Medicine; ATTEND Internal Medicine

== ENCOUNTER 2017-12-06 06:00 | Observation (INO) ==
[2017-12-06 07:59] LABS: Basophils % 0.2 %; Eosinophils % 0.5 %; Hematocrit 32.8 % (37.5-50.1); Hemoglobin 10.9 g/dL (12.9-16.9); Immature Granulocytes % 0.4 % (0-4); Lymphocytes # 0.6 K/mcL (0.6-4.6); Lymphocytes % 6.9 %; Mean Corpuscular HGB Conc 33.2 g/dL (31.6-35.5); Mean Corpuscular Hemoglobin 30.4 pg (28.0-33.3); Mean Corpuscular Volume 91.6 fL (83.0-100.0); Mean Platelet Volume 8.7 fL (9.4-12.4); Monocytes # 0.4 K/mcL (0.0-1.3); Monocytes % 5.2 %; Neutrophils # 7.2 K/mcL (1.6-8.9); Platelet Count 264 K/mcL (140-400); Red Blood Count 3.58 M/mcL (4.19-5.50); Red Cell Distribution Width 13.5 % (11.5-14.5); Segmented Neutrophils % 86.8 %
[2017-12-06 08:24] LABS: BUN/Creatinine Ratio 14 (6-26); Blood Urea Nitrogen 15 mg/dL (6-20); Calcium 8.9 mg/dL (8.6-10.3); Carbon Dioxide 23 mEq/L (23-29); Chloride 107 mEq/L (98-107); Glucose 185 mg/dL (70-105); Osmolality,Calculated 288 (280-300); Potassium 4.3 mEq/L (3.5-5.1); Sodium 136 mEq/L (136-145); eGFR For African Americans > 60 (> 60); eGFR For Non-African Americans > 60 (> 60)
--- NOTE | 2017-12-06 08:24 | Emergency Department Note ---
Disposition Clinical Impression: History of pulmonary embolism, Morbid obesity Sepsis Qualifiers: Sepsis type: sepsis due to unspecified organism Qualified Code(s): A41.9 - Sepsis, unspecified organism Anemia Qualifiers: Anemia type: unspecified type Qualified Code(s): D64.9 - Anemia, unspecified Diabetes mellitus Qualifiers: Diabetes mellitus type: type 2 Diabetes mellitus correction insulin use: without terminal supervisor use Diabetes mellitus complication status: with hyperglycemia Qualified Code(s): E11.65 - Type 2 diabetes mellitus with hyperglycemia Disposition: Admitted As Inpatient Condition: Undetermined Referrals: Dali Fried, CLINICAL EDUCATION SPECIALIST [Primary Care Provider] - Forms: ED Satisfaction Letter, Work/School Release General Adult HPI - General Chief complaint: ED General Medical Stated complaint: fever Time Seen by Provider: 12/06/17 06:18 Source: patient Mode of arrival: private vehicle Limitations: no limitations Nursing Notes Reviewed: Yes Vital Signs Reviewed: Yes - History of Present Illness HPI Narrative: Patient with history of recent admission for pneumonia presents today for evaluation of fever. He states that he started feeling achy all over. Last night, but thought it was from fibromyalgia as he has trouble with this frequently. This morning he felt feverish with diaphoresis and chills. The achiness continued, so he came in for evaluation. He states that when he was in the hospital with pneumonia a few weeks ago. He was told to return if he developed a fever or any other symptoms. He completed his antibiotics two or three days ago. He was on Augmentin. He has been on oxygen since he was admitted. He has a follow-up appointment with the supervisor assembly this coming week. He states, "I do not have chest pain or feels short of breath, like I did a few weeks ago, but I do have a fever and I am not feeling well." He denies nausea, vomiting, dysuria, hematuria or constipation. He did have one episode of loose stool yesterday. He denies blood or melena. He denies dizziness, lightheadedness, vertigo or syncope. No cough or hemoptysis. No recent leg swelling or pain. No rashes. No abdominal pain, back pain, headache , neck pain and no specific joint pain, swelling or redness. Pt Subjective Complaint: Fever Onset (ago): hour(s) Location: other ("Just achey all over") Pain Severity: moderate Quality: aching Consistency: constant Improves with: nothing Worsens with: nothing Associated symptoms: Reports: fever/chills, malaise. Denies: confusion, chest pain, cough, diaphoresis, headaches, loss of appetite, nausea/vomiting, rash, seizure, shortness of breath, syncope, weakness Treatments Prior to Arrival: none - Related Data Home Medications Medication Instructions Recorded Confirmed DULoxetine [Cymbalta] 60 mg PO DAILY 11/06/17 12/06/17 HYDROcodone/Acet 5/325 mg [[place] 1 tab PO Q6H 11/06/17 12/06/17 5-325 mg] Hydrochlorothiazide [Microzide] 12.5 mg PO DAILY 11/06/17 12/06/17 Lisinopril [Zestril] 20 mg PO DAILY 11/06/17 12/06/17 Nortriptyline HCl 50 mg PO DAILY 11/06/17 12/06/17 Pravastatin Sodium [Pravachol] 20 mg PO HS 11/06/17 12/06/17 Rivaroxaban [Xarelto] 20 mg PO DAILY 11/06/17 12/06/17 metFORMIN [Glucophage] 500 mg PO DAILY 11/06/17 12/06/17 Previous Rx's Medication Instructions Recorded Lactobacillus Acidophilus 1 each PO BID #28 tablet 11/15/17 [Acidophilus] Allergies Allergy/AdvReac Type Severity Reaction Status Date / Time No Known Allergies Allergy Verified 11/06/17 20:33 All systems ED: reviewed and negative except as stated. Review of Systems: As Per HPI Constitutional: Reports: fever, chills. Denies: weakness, weight change Eyes: Denies: eye pain, eye discharge, vision change ENT ED: Denies: ear pain, throat pain, dental pain, congestion, dysphagia Cardiovascular: Reports: dyspnea on exertion ("Sometimes, since having pneumonia "). Denies: chest pain, palpitations, orthopnea, edema, syncope Respiratory: Denies: cough, dyspnea, wheezes, hemoptysis, stridor, sputum production Gastrointestinal: Denies: abdominal pain, nausea, vomiting, constipation, hematemesis, melena Genitourinary: Reports: as per HPI. Denies: urgency, dysuria, frequency, hematuria, discharge Musculoskeletal: Denies: back pain, neck pain, joint swelling Integumentary: Denies: rash Neurological: Denies: headache, weakness, numbness, paresthesias, confusion, abnormal gait, vertigo Hematological/Lymphatic: Reports: easy bleeding, easy bruising (on Xarelto). Denies: lymphadenopathy Allergic/Immunologic: Denies: facial swelling, urticaria, itchy eyes Past Medical History - Past Medical History Attestation: Yes The following information was validated with the patient. Source: patient Medical history: Reports: arthritis, DVT, fibromyalgia, hypertension, pulmonary embolus Surgical history: Reports: cholecystectomy, herniorrhaphy Psychiatric history: Reports: depression - Social History Smoking Status: Never smoker Smokeless Tobacco Status: No Alcohol use: Reports: none Drug use: Reports: none Physical Exam - General Limitations: no limitations General appearance: alert, in no apparent distress - Head Head exam: atraumatic, normocephalic, normal inspection - Eye Eye exam: Present: normal appearance, PERRL. Absent: scleral icterus, conjunctival injection, periorbital swelling - ENT ENT exam: mucous membranes dry - Neck Neck exam: Present: normal inspection, full ROM, trachea midline. Absent: meningismus, lymphadenopathy - Chest Chest inspection: Present: normal inspection, symmetric chest wall rise. Absent : tenderness - Respiratory Respiratory exam: Present: normal lung sounds bilaterally, other (tachypneic - 22). Absent: respiratory distress, wheezes, stridor, accessory muscle use, prolonged expiratory phase - Cardiovascular Cardiovascular exam: Present: normal rhythm, tachycardia, normal heart sounds. Absent: systolic murmur, diastolic murmur - Abdominal Exam Abdominal exam: Present: soft, Non-Tender. Absent: distention, guarding, rebound, rigidity, mass - Extremities Exam Extremities exam: Present: full ROM, normal capillary refill. Absent: calf tenderness - Expanded Lower Extremity Exam Gait: observed and normal (Patient ambulatory to and from the restroom without assistance and without complications.) - Back Exam Back exam: Present: normal inspection. Absent: CVA tenderness (R), CVA tenderness (L) - Neurological Exam Neurological exam: Present: alert, oriented X3, CN II-XII intact, normal gait - Psychiatric Psychiatric exam: Present: normal affect, normal mood - Skin Skin exam: Present: warm, dry, intact, normal color Course Course Narrative: Patient with history of previous PE and DVT on Xarelto as well as history of diabetes and fibromyalgia presents from home for evaluation of fever and malaise. He was discharged from the hospital two weeks ago after a 10 day stay for pneumonia. He was treated with Augmentin and completed this two days ago. He began feeling poorly yesterday with generalized arthralgias and myalgias. This morning he had a fever. This is what prompted him to come back to the emergency room. On exam, he has a temp of 100.5 and is tachycardic, rate 112. Systolic blood pressure is 100. He is mildly tachypneic at 22. Breath sounds are clear. Heart sounds are normal, except the rate. Abdomen is soft and nontender without guarding, rebound tenderness or rigidity. Extremities are well-perfused. He has chronic skin changes to the lower legs with mild edema. It is symmetric. Patient appears uncomfortable but nontoxic. He is diaphoretic. He is sitting up on the side of the bed with a cool towel on his head. He is able to ambulate to and from the restroom without assistance and without complications. Labs, EKG and chest x-ray have been ordered, along with fluids and antipyretics. Patient's lactate is elevated at 2.4. Chest x-ray is normal. White count is normal. He is anemic, but has been anemic for quite some time. He states that he is aware of this but is not sure of the cause. Blood sugar is elevated, renal function is normal. Urinalysis is pending. Case was discussed with Dr. Skelton. He has had [id number] time with the patient and recommends a CT of the chest with contrast. This has been ordered. CT of the chest with contrast was read by the radiologist as no acute abnormality. Resolution of previous fluid collections in the left lung. Patient's EKG shows sinus tach with nonspecific T-wave changes. Troponin is normal. Patient was recently discharged after experiencing a significant pneumonia that resulted in respiratory failure. He is still on oxygen and just finished his antibiotics two days ago. He meets criteria for sepsis. A definite source has not yet been identified. Case was discussed with the hospitalist. Patient will be admitted for further evaluation and treatment. Vital Signs Temperature 97.9 F 12/06/17 06:04 Pulse Rate 116 12/06/17 06:04 Respiratory Rate 20 12/06/17 06:04 Blood Pressure 122/74 12/06/17 06:04 O2 Sat by Pulse Oximetry 96 12/06/17 06:04 Temperature 100.5 F H 12/06/17 09:31 Pulse Rate 104 12/06/17 09:31 Respiratory Rate 24 12/06/17 09:31 Blood Pressure 100/66 12/06/17 07:28 O2 Sat by Pulse Oximetry 97 12/06/17 09:31 Oxygen Delivery Oxygen Delivery Nasal Cannula Medical Decision Making - Medical Records Medical records reviewed: Yes I reviewed the patient's medical records. - Lab Data Lab results reviewed: Yes I reviewed the patient's lab results. Lab results narrative: Laboratory Last Values WBC 8.3 K/mcL (4.3-11.1) 12/06/17 07:50 RBC 3.58 M/mcL (4.19-5.50) L 12/06/17 07:50 Hgb 10.9 g/dL (12.9-16.9) L 12/06/17 07:50 Hct 32.8 % (37.5-50.1) L 12/06/17 07:50 MCV 91.6 fL (83.0-100.0) 12/06/17 07:50 MCH 30.4 pg (28.0-33.3) 12/06/17 07:50 MCHC 33.2 g/dL (31.6-35.5) 12/06/17 07:50 RDW 13.5 % (11.5-14.5) 12/06/17 07:50 Plt Count 264 K/mcL (140-400) 12/06/17 07:50 MPV 8.7 fL (9.4-12.4) L 12/06/17 07:50 Immature Gran % 0.4 % (0-4) 12/06/17 07:50 Seg Neutrophils % 86.8 % 12/06/17 07:50 Lymphocytes % 6.9 % 12/06/17 07:50 Monocytes % 5.2 % 12/06/17 07:50 Eosinophils % 0.5 % 12/06/17 07:50 Basophils % 0.2 % 12/06/17 07:50 Neutrophils # 7.2 K/mcL (1.6-8.9) 12/06/17 07:50 Lymphocytes # 0.6 K/mcL (0.6-4.6) 12/06/17 07:50 Monocytes # 0.4 K/mcL (0.0-1.3) 12/06/17 07:50 Eosinophils # 0.0 K/mcL (0.0-0.6) 12/06/17 07:50 Basophils # 0.0 K/mcL (0.0-0.2) 12/06/17 07:50 Sodium 136 mEq/L (136-145) 12/06/17 07:50 Potassium 4.3 mEq/L (3.5-5.1) 12/06/17 07:50 Chloride 107 mEq/L (98-107) 12/06/17 07:50 Carbon Dioxide 23 mEq/L (23-29) 12/06/17 07:50 BUN 15 mg/dL (6-20) 12/06/17 07:50 Creatinine 1.05 mg/dL (0.70-1.30) 12/06/17 07:50 Est GFR ( Amer) > 60 (> 60) 12/06/17 07:50 Est GFR (Non-Af Amer) > 60 (> 60) 12/06/17 07:50 BUN/Creatinine Ratio 14 (6-26) 12/06/17 07:50 Glucose 185 mg/dL (70-105) H 12/06/17 07:50 Calculated Osmolality 288 (280-300) 12/06/17 07:50 Lactic Acid 2.4 mmol/L (0.5-2.2) H 12/06/17 07:50 Calcium 8.9 mg/dL (8.6-10.3) 12/06/17 07:50 Result diagrams: 12/06/17 07:50 12/06/17 07:50 Lab Results 12/06/17 12/06/17 12/06/17 Range/Units 07:50 07:50 07:50 WBC 8.3 (4.3-11.1) K/mcL RBC 3.58 L (4.19-5.50) M/mcL Hgb 10.9 L (12.9-16.9) g/dL Hct 32.8 L (37.5-50.1) % MCV 91.6 (83.0-100.0) fL MCH 30.4 (28.0-33.3) pg MCHC 33.2 (31.6-35.5) g/dL RDW 13.5 (11.5-14.5) % Plt Count 264 (140-400) K/mcL MPV 8.7 L (9.4-12.4) fL Immature Gran % 0.4 (0-4) % Seg Neutrophils % 86.8 % Lymphocytes % 6.9 % Monocytes % 5.2 % Eosinophils % 0.5 % Basophils % 0.2 % Neutrophils # 7.2 (1.6-8.9) K/mcL Lymphocytes # 0.6 (0.6-4.6) K/mcL Monocytes # 0.4 (0.0-1.3) K/mcL Eosinophils # 0.0 (0.0-0.6) K/mcL Basophils # 0.0 (0.0-0.2) K/mcL PT (9.4-12.1) Seconds INR APTT (26.0-36.0) Seconds Sodium 136 (136-145) mEq/L Potassium 4.3 (3.5-5.1) mEq/L Chloride 107 (98-107) mEq/L Carbon Dioxide 23 (23-29) mEq/L BUN 15 (6-20) mg/dL Creatinine 1.05 (0.70-1.30) mg/dL Est GFR ( Amer) > 60 (> 60) Est GFR (Non-Af Amer) > 60 (> 60) BUN/Creatinine Ratio 14 (6-26) Glucose 185 H (70-105) mg/dL Calculated Osmolality 288 (280-300) Lactic Acid 2.4 H (0.5-2.2) mmol/L Calcium 8.9 (8.6-10.3) mg/dL Troponin I (< 0.04) ng/mL B-Natriuretic Peptide (Less than 100) pg/mL 12/06/17 12/06/17 12/06/17 Range/Units 09:44 09:44 09:44 WBC (4.3-11.1) K/mcL RBC (4.19-5.50) M/mcL Hgb (12.9-16.9) g/dL Hct (37.5-50.1) % MCV (83.0-100.0) fL MCH (28.0-33.3) pg MCHC (31.6-35.5) g/dL RDW (11.5-14.5) % Plt Count (140-400) K/mcL MPV (9.4-12.4) fL Immature Gran % (0-4) % Seg Neutrophils % % Lymphocytes % % Monocytes % % Eosinophils % % Basophils % % Neutrophils # (1.6-8.9) K/mcL Lymphocytes # (0.6-4.6) K/mcL Monocytes # (0.0-1.3) K/mcL Eosinophils # (0.0-0.6) K/mcL Basophils # (0.0-0.2) K/mcL PT 14.9 H (9.4-12.1) Seconds INR 1.3 APTT 35.0 (26.0-36.0) Seconds Sodium (136-145) mEq/L Potassium (3.5-5.1) mEq/L Chloride (98-107) mEq/L Carbon Dioxide (23-29) mEq/L BUN (6-20) mg/dL Creatinine (0.70-1.30) mg/dL Est GFR ( Amer) (> 60) Est GFR (Non-Af Amer) (> 60) BUN/Creatinine Ratio (6-26) Glucose (70-105) mg/dL Calculated Osmolality (280-300) Lactic Acid (0.5-2.2) mmol/L Calcium (8.6-10.3) mg/dL Troponin I < 0.03 (< 0.04) ng/mL B-Natriuretic Peptide 90 (Less than 100) pg/mL - Radiology Data Radiology results reviewed: Yes I reviewed the patient's radiology results. Chest X-Ray 12/06/17 06:44 IMPRESSION: No acute process. Resolution of previous seen acute processes in the left lung. D/ / Abdulkadir Brown MD / Abdulkadir Brown MD Interpreting Provider: Abdulkadir Brown MD - EKG Data EKG #1 EKG attestation: Yes I reviewed and interpreted this EKG. EKG shows normal: sinus rhythm Rate: tachycardia Rhythm: NSR T wave inversions noted in: v1 When compared to previous EKG there are: previous EKG unavailable Interpretation: nonspecific ST-T wave changes
[2017-12-06] MEDS ORDERED: 0.9 % Sodium Chloride 1,000 ML IVC ONE ×3 (08:26→11:01)
[2017-12-06] MEDS ORDERED: Isovue-370 500 ML INFUS..BTL IV ONE (09:04)
[2017-12-06 10:03] LABS: INR 1.3; Prothrombin Time 14.9 Seconds (9.4-12.1)
[2017-12-06 11:46] LABS: Bilirubin,Urine Negative (Negative); Blood,Urine Negative (Negative); Clarity,Urine Clear (Clear); Color,Urine Dark Yellow (Yellow); Glucose,Urine (UA) Normal (Normal); Ketones,Urine Trace mg/dL (Negative); Leukocyte Esterase,Urine Negative (Negative); Nitrite,Urine Negative (Negative); PH,Urine 5.5 pH Units (5.0-8.0); Protein,Urine 30 mg/dL (Neg-Trace); Specific Gravity,Urine > 1.030 (1.010-1.025); Urobilinogen,Urine Normal (Normal)
[2017-12-06 11:48] LABS: Bacteria,Urine None Seen per hpf (None-Few); Squamous Epithelial Cell,Urine Many per lpf (None-Few)
[2017-12-06 12:00] LABS: Hyaline Casts,Urine Few per lpf (None-Few)
[2017-12-06] MEDS ORDERED: Naloxone 0.4 MG/ML INJ IVP PRN (12:53)
[2017-12-06] MEDS ORDERED: Acetaminophen 325 MG TABLET PO PRN (13:02)
[2017-12-06] MEDS ORDERED: Dextrose Gel 15 GM/37.5 ML TUBE PO PRN ×2 (13:09)
[2017-12-06] MEDS ORDERED: D5% in Water 1,000 ML IVC PRN (13:09)
[2017-12-06] MEDS ORDERED: *HR* Dextrose 50 % in Water (Syg) 50 ML SYRINGE IVP PRN (13:09)
--- NOTE | 2017-12-06 13:35 | Internal Med History&Physical ---
<VickeysoheilatiffanieElías dodge - Last Filed: 12/06/17 15:11> Date of Encounter: 12/06/17 Time of Encounter: 12:00 Internal Medicine - H&P: HPI Chief complaint: Weakness/Achy all over Admitted From: Emergency Dept Plans for Post Hospital Care: Home History of present illness: Mr. Mckinley is a 47 year old male w/PMH of arthritis, PE (22 months ago), fibromyalgia, HTN, and HLD presents from the ED w/CC of generalized weakness and achiness all over his body since this morning at 6:30 a.m. Patient reports he was admitted 3 weeks ago for PNA and discharged. Pt. states he has begun to feel weaker and achy over the past several days but much worse today. States he feels like he has the flu. Associated sx: fever, chills, weakness, achiness. Pt. denies nausea, vomiting, diarrhea, shortness of breath, changes in vision, constipation, chest pain, chest congestion, cough, abdominal pain, dizziness, lightheadedness, numbness, tingling, pre-syncope, or syncope. Past Med Surg Social Fam HX - Past Medical History Source: patient, old records reviewed Medical history: arthritis, DVT, fibromyalgia, hypertension, pulmonary embolus Psychiatric history: depression - Past Surgical History Surgical History: cholecystectomy, herniorrhaphy Additional surgical history: catherization to remove blood clot - Social History Smoking Status: Never smoker Smokeless Tobacco Status: No Alcohol use: none Drug use: none Current living situation: Home Activity Level: Independent ambulation Recent Out of Country Travel Within the Last 8 Weeks: No Exposure or Possible Exposure to Illness During Travel: No - Family History Mother Race: Family Member Ethnicity: Non- Living Status: Age at : 53 Cause of : PN, Lupus Hx Family Cardiac Disorders: Yes (CHF) Hx Family Endocrine Disorder: Yes (Type 2 diabetes) Hx Family Musculoskeletal Disorders: Yes (Arthritis, Fibromyalgia) Father Race: Family Member Ethnicity: Non- Living Status: Still Living Hx Family Respiratory Disorders: Yes (COPD) Hx Family Endocrine Disorder: Yes (Type 2 diabetic) Hx Family Neurologic Disorders: Yes (Alzheimer's disease) Brother Race: Family Member Ethnicity: Non- Living Status: Still Living Hx Family Cardiac Disorders: Yes (OK, CAD) Internal Medicine - H&P: Meds DULoxetine [Cymbalta] 60 mg PO DAILY 11/06/17 [History] HYDROcodone/Acet 5/325 mg [[place] 5-325 mg] 1 tab PO Q6H 11/06/17 [History] Hydrochlorothiazide [Microzide] 12.5 mg PO DAILY 11/06/17 [History] Lisinopril [Zestril] 20 mg PO DAILY 11/06/17 [History] Nortriptyline HCl 50 mg PO DAILY 11/06/17 [History] Pravastatin Sodium [Pravachol] 20 mg PO HS 11/06/17 [History] Rivaroxaban [Xarelto] 20 mg PO DAILY 11/06/17 [History] metFORMIN [Glucophage] 500 mg PO DAILY 11/06/17 [History] Lactobacillus Acidophilus [Acidophilus] 1 each PO BID #28 tablet 11/15/17 [Rx] 3 Allergy/AdvReac Type Severity Reaction Status Date / Time No Known Allergies Allergy Verified 11/06/17 20:33 All Systems PM: A 10-system review of systems was performed and is negative for pertinent findings except as documented above in the HPI. - Constitutional Constitutional: as per HPI, chills, fever(s), weakness, no night sweats - EENT Eyes: no change in vision, no discharge, no pain, no photophobia Ears: no ear discharge, no ear pain, no tinnitus Nose, mouth and throat: no dysphagia, no nasal discharge, no neck pain, no sore throat - Breasts Breasts: as per HPI - Cardiovascular Cardiovascular ROS IM: no chest pain, no diaphoresis, no dyspnea, no lightheadedness, no palpitations, no syncope - Respiratory Respiratory: no cough, no dyspnea, no wheezing, no excessive phlegm production - Gastrointestinal Gastrointestinal: no abdominal pain, no diarrhea, no hematemesis, no hematochezia, no melena, no nausea, no vomiting - Genitourinary Genitourinary ROS male: as per HPI - Musculoskeletal Musculoskeletal ROS IM: as per HPI, arthralgias, muscle weakness, myalgias, no numbness, no tingling - Integumentary Integumentary IM: no rash, no unusual bruising - Neurological Neurological ROS: no confusion, no convulsions, no focal weakness, no numbness, no tingling, no tremor(s) - Psychiatric Psychiatric: as per HPI, depression - Endocrine Endocrine IM: as per HPI - Hematologic/Lymphatic Hematologic/Lymphatic: no easy bruising - Allergic/Immunologic Allergic/Immunologic: as per HPI - Constitutional Vitals: Temp Pulse Resp BP Pulse Ox 100.5 F H 91 18 115/81 97 12/06/17 09:31 12/06/17 12:25 12/06/17 12:25 12/06/17 12:25 12/06/17 12:25 General appearance: Present: cooperative, A&O X 3, morbidly obese, pleasant, no acute distress, answers questions appropriately - Head Head exam: Present: atraumatic, normocephalic - Eye Eye exam: Present: PERRL, conjuntiva pink, sclera anicteric Pupils: Present: PERRL - ENT ENT exam: Present: normal exam - Neck Neck exam general surgery: Present: supple, trachea midline. Absent: lymphadenopathy - Respiratory Respiratory exam: Present: CTAB. Absent: accessory muscle use, rales, rhonchi, wheezes - Cardiovascular Cardiovascular exam: Present: +S1, +S2, tachycardia - GI/Abdominal GI/Abdominal exam: Present: normal bowel sounds, soft, no peritoneal signs. Absent: distended, tenderness - Rectal Rectal exam: Present: deferred - Additional comments: exam deferred. - Extremities Exam Extremities exam: Present: warm, radial pulses palpable and symmetrical. Absent : calf tenderness, cyanotic, pedal edema - Back Exam Back exam: Present: normal inspection - Neurological Exam Neurological exam: Present: CN II-XII intact, oriented X3, no focal deficits. Absent: pronater drift, facial droop, speech deficit - Psychiatric Psychiatric exam: Present: normal affect, normal mood - Skin Skin exam: Present: dry, intact Internal Med - H&P Results - Labs CBC & Chem 7: 12/06/17 07:50 12/06/17 07:50 Labs: Urine 12/06/17 Range/Units 11:36 Urine Color Dark Yellow (Yellow) Urine Clarity Clear (Clear) Urine pH 5.5 (5.0-8.0) pH Units Ur Specific [place] > 1.030 H (1.010-1.025) Urine Protein 30 H (Neg-Trace) mg/dL Urine Glucose (UA) Normal (Normal) mg/dL - EKG Data EKG shows normal: sinus rhythm Rate: tachycardia - EKG Data Prior EKG available for review: no EKG comments: 12/06/17 13:41 EKG dated 12/06/17 shows sinus tachycardia with nonspecific T-wave abnormality. - Diagnostic Studies Chest x-ray Additional comments: Impressions Chest X-Ray 12/06/17 06:44 IMPRESSION: No acute process. Resolution of previous seen acute processes in the left lung. D/ / Abdulkadir Brown MD / Abdulkadir Brown MD Interpreting Provider: Abdulkadir Brown MD CT scan - chest Additional comments: Impressions Chest CT 12/06/17 09:34 IMPRESSION: No evidence of acute focal process in the lungs. No evidence of pneumonia. Stable chronic anterior left pleural thickening and subpleural scarring. D/ / 12/06/2017 10:53:26 Abdulkadir Brown MD / [place] Interpreting Provider: Abdulkadir Brown MD - Assessment and plan (1) SIRS (systemic inflammatory response syndrome) Current Visit: Yes Status: Acute Assessment and plan: Acute SIRS criteria of unknown etiology. Possibly reactive to current sx versus fibromyalgia flare-up. Lactic 2.4 on admission. WBC 8.3, HR 116, temp 100.5F, RR 24. Timed lactic acids. Pt. received 3L boluses of 0.9 NS IV fluids in ED. Reports being admitted 3 weeks ago for PNA and recently finished abx. CXR and CT of chest negative for PNA or infective process. Blood cultures x2 ordered. IVPB levaquin 750 mg daily ordered. Will d/c if patient afebrile and asymptomatic in 24 hours. Continuous cardiac telemetry. Supplemental O2 w/ titration and SpO2 monitoring. Pt. discussed w/Dr. Duvall who agrees w/plan of care. Pt. is high risk for further morbidity d/t current SIRS criteria of unknown etiology, recent PNA, generalized weakness, hx, and risk factors. Observation. (2) Weakness Current Visit: Yes Status: Acute Assessment and plan: Acute and generalized weakness for the past several days. Pt. reports fever, chills, and achiness. Unsure if etiology is influenza or fibromyalgia flareup. Falls/safety precautions and up with assist only. Continue pts. pain medications for fibromyalgia. (3) Hyperglycemia Current Visit: Yes Status: Acute Assessment and plan: Acute hyperglycemia. Pt. reports he takes metformin for pre-diabetes. BG 185 on admission. Hold patient's metformin and add low-dose correction insulin sliding scale and hypoglycemic protocol. BG checks before meals at bedtime. A1c in a.m. labs. (4) Tachycardia Current Visit: Yes Status: Acute Assessment and plan: Acute tachycardia. Pt. reports weakness, fever, chills, achiness. Continuous cardiac telemetry. Respiratory infection panel ordered. Pt. received 3L of 0.9 NS IV fluids in ED. Meets SIRS criteria and will be monitored closely. Lactic 2.4. Timed lactics ordered. (5) Fibromyalgia Current Visit: Yes Status: Chronic Assessment and plan: Hx of chronic fibromyalgia. Pt. states not well-controlled. Continue pts. pain medications. Falls/safety precautions and up with assist only d/t weakness. (6) Anemia Current Visit: Yes Status: Chronic Assessment and plan: Hx of chronic anemia. Hgb 10.9 and Hct 32.8, down from 12.3 and 36.7 on 11/24. Pt. reports small amount of blood in stool d/t rectal irritation. Fecal hemoccult ordered. Monitor pt. and f/u labs. Qualifiers: Anemia type: unspecified type Qualified Code(s): D64.9 - Anemia, unspecified (7) Morbid obesity Current Visit: Yes Status: Chronic Assessment and plan: Hx of morbid obesity. Pt. states he swims and goes to gym when he feels good. Encouraged to continue. (8) Hypertension Current Visit: Yes Status: Chronic Assessment and plan: Hx of chronic HTN. Monitor pt. and VS. Continue pts. Lisinopril and hydrochlorothiazide. Qualifiers: Hypertension type: essential hypertension Qualified Code(s): I10 - Essential (primary) hypertension (9) HLD (hyperlipidemia) Current Visit: Yes Status: Chronic Assessment and plan: Hx of chronic HLD. Lipid panel in a.m. labs. Continue pts. Pravastatin. Qualifiers: Hyperlipidemia type: pure hypercholesterolemia Qualified Code(s): E78.00 - Pure hypercholesterolemia, unspecified; E78.0 - Pure hypercholesterolemia (10) History of pulmonary embolism Current Visit: Yes Status: Resolved Assessment and plan: Hx of PE 22 months ago. Pt. denies SOB. Continue pts. Xarelto. (11) DVT prophylaxis Current Visit: Yes Status: Acute Assessment and plan: Continue patient's Xarelto for DVT prophylaxis. Monitor patient for signs of bleeding. (12) Depression Current Visit: Yes Status: Chronic Assessment and plan: Hx of chronic depression. Continue pts. Cymbalta and nortriptyline. Qualifiers: Depression Type: unspecified Qualified Code(s): F32.9 - Major depressive disorder, single episode, unspecified - Time Spent With Patient Total time spent is greater than 50% in coordination of care (as documented) at patient's floor/unit and/or counseling patient: Greater than 35 minutes <Nick Duvall - Last Filed: 12/07/17 09:25> Date of Encounter: 12/07/17 Internal Medicine - H&P: HPI History of present illness: Mr. Mckinley is a 47 year old male All Systems PM: A 10-system review of systems was performed and is negative for pertinent findings except as documented above in the HPI. - Constitutional Vitals: Temp Pulse Resp BP Pulse Ox 98.4 F 88 16 120/76 96 12/07/17 07:29 12/07/17 07:29 12/07/17 07:29 12/07/17 07:29 12/07/17 07:29 Internal Med - H&P Results - Labs CBC & Chem 7: 12/07/17 06:24 12/07/17 06:24 Labs: Short CBC 12/07/17 Range/Units 06:24 WBC 4.5 (4.3-11.1) K/mcL Hgb 10.6 L (12.9-16.9) g/dL Hct 32.4 L (37.5-50.1) % Plt Count 224 (140-400) K/mcL Neutrophils # 2.6 (1.6-8.9) K/mcL BMP 12/07/17 06:24 Sodium 137 Potassium 4.3 Chloride 105 Carbon Dioxide 27 BUN 13 Creatinine 1.00 Glucose 160 H Calcium 9.1 Liver Function 12/07/17 Range/Units 06:24 Total Bilirubin 0.9 (0.3-1.0) mg/dL AST 28 (13-39) Units/L ALT 19 (7-52) Units/L Alkaline Phosphatase 42 (34-104) Units/L Albumin 3.7 (3.5-5.7) g/dL Urine 12/06/17 Range/Units 11:36 Urine Color Dark Yellow (Yellow) Urine Clarity Clear (Clear) Urine pH 5.5 (5.0-8.0) pH Units Ur Specific [place] > 1.030 H (1.010-1.025) Urine Protein 30 H (Neg-Trace) mg/dL Urine Glucose (UA) Normal (Normal) mg/dL - Attending Attestation Seen and assessed. Continue management for SIRS/ fever. Agree with plan per [employer] - Assessment and plan (1) Tachycardia Current Visit: Yes Status: Acute (2) Hypertension Current Visit: Yes Status: Chronic Qualifiers: Hypertension type: essential hypertension Qualified Code(s): I10 - Essential (primary) hypertension (3) DVT prophylaxis Current Visit: Yes Status: Acute (4) Morbid obesity Current Visit: Yes Status: Chronic (5) History of pulmonary embolism Current Visit: Yes Status: Resolved (6) Anemia Current Visit: Yes Status: Chronic Qualifiers: Anemia type: unspecified type Qualified Code(s): D64.9 - Anemia, unspecified (7) Fibromyalgia Current Visit: Yes Status: Chronic (8) Hyperglycemia Current Visit: Yes Status: Acute (9) SIRS (systemic inflammatory response syndrome) Current Visit: Yes Status: Acute (10) Weakness Current Visit: Yes Status: Acute (11) HLD (hyperlipidemia) Current Visit: Yes Status: Chronic Qualifiers: Hyperlipidemia type: pure hypercholesterolemia Qualified Code(s): E78.00 - Pure hypercholesterolemia, unspecified; E78.0 - Pure hypercholesterolemia (12) Depression Current Visit: Yes Status: Chronic Qualifiers: Depression Type: unspecified Qualified Code(s): F32.9 - Major depressive disorder, single episode, unspecified - Time Spent With Patient Total time spent is greater than 50% in coordination of care (as documented) at patient's floor/unit and/or counseling patient:
[2017-12-06] MEDS: Levofloxacin 750 MG/150 ML 750 MG/150 ML BAG IVPB SCH (14:36)
[2017-12-06] MEDS: *HR* HYDROcodone/Acet 5/325 mg TABLET PO SCH ×2 (14:36→19:54)
[2017-12-06 15:01] LABS: Adenovirus Not Detected (Not Detect); Bordetella Pertussis Not Detected (Not Detect); Chlamydophila pneumoniae Not Detected (Not Detect); Coronavirus 229E Not Detected (Not Detect); Coronavirus HKU1 Not Detected (Not Detect); Coronavirus NL63 Not Detected (Not Detect); Coronavirus OC43 Not Detected (Not Detect); Human Metapneumovirus Not Detected (Not Detect); Human Rhinovirus/Enterovirus Not Detected (Not Detect); Influenza A Subtype 2009 H1 Not Detected (Not Detect); Influenza A Untypeable Not Detected (Not Detect); Influenza B Not Detected (Not Detect); Mycoplasma pneumoniae Not Detected (Not Detect); Parainfluenza Virus 1 Not Detected (Not Detect); Parainfluenza Virus 2 Not Detected (Not Detect); Parainfluenza Virus 3 Not Detected (Not Detect); Parainfluenza Virus 4 Not Detected (Not Detect); Respiratory Syncytial Virus Not Detected (Not Detect)
[2017-12-06] MEDS: Insulin LISPRO 300 UNITS/3 ML VIAL SQ SCH (18:19)
[2017-12-06] MEDS: Lactobacillus 1 EACH CAP.SPRINK PO SCH (19:56)
[2017-12-06] MEDS ORDERED: Insulin LISPRO 300 UNITS/3 ML VIAL SQ SCH (21:00)
[2017-12-07] MEDS: *HR* HYDROcodone/Acet 5/325 mg TABLET PO SCH ×3 (01:44→13:27)
[2017-12-07 07:03] LABS: Basophils % 0.4 %; Eosinophils # 0.2 K/mcL (0.0-0.6); Eosinophils % 4.2 %; Hematocrit 32.4 % (37.5-50.1); Hemoglobin 10.6 g/dL (12.9-16.9); Immature Granulocytes % 0.4 % (0-4); Lymphocytes # 1.1 K/mcL (0.6-4.6); Mean Corpuscular HGB Conc 32.7 g/dL (31.6-35.5); Mean Corpuscular Hemoglobin 30.5 pg (28.0-33.3); Mean Corpuscular Volume 93.1 fL (83.0-100.0); Mean Platelet Volume 8.8 fL (9.4-12.4); Monocytes # 0.5 K/mcL (0.0-1.3); Monocytes % 10.9 %; Neutrophils # 2.6 K/mcL (1.6-8.9); Platelet Count 224 K/mcL (140-400); Red Blood Count 3.48 M/mcL (4.19-5.50); Red Cell Distribution Width 13.4 % (11.5-14.5); Segmented Neutrophils % 59.1 %
[2017-12-07 07:22] LABS: Alanine Aminotransferase 19 Units/L (7-52); Albumin 3.7 g/dL (3.5-5.7); Albumin/Globulin Ratio 1.4 (1.1-2.2); Alkaline Phosphatase 42 Units/L (34-104); Aspartate Amino Transferase 28 Units/L (13-39); BUN/Creatinine Ratio 13 (6-26); Bilirubin,Total 0.9 mg/dL (0.3-1.0); Blood Urea Nitrogen 13 mg/dL (6-20); Calcium 9.1 mg/dL (8.6-10.3); Carbon Dioxide 27 mEq/L (23-29); Chloride 105 mEq/L (98-107); Chol/HDL Ratio 5.3 (0-4.9); Cholesterol 138 mg/dL (< 200); Globulin 2.6 g/dL (2.4-3.5); Glucose 160 mg/dL (70-105); HDL Cholesterol 26 mg/dL (40-59); LDL Cholesterol,Calculated 72 mg/dL (0-99); Osmolality,Calculated 288 (280-300); Potassium 4.3 mEq/L (3.5-5.1); Sodium 137 mEq/L (136-145); Total Protein 6.3 g/dL (6.4-8.9); Triglycerides 199 mg/dL (< 150); eGFR For African Americans > 60 (> 60); eGFR For Non-African Americans > 60 (> 60)
[2017-12-07] MEDS: Levofloxacin 750 MG/150 ML 750 MG/150 ML BAG IVPB SCH (07:57)
[2017-12-07] MEDS: Lactobacillus 1 EACH CAP.SPRINK PO SCH (07:59)
[2017-12-07 08:24] LABS: Estimated Average Glucose 148 mg/dl; Hemoglobin A1C 6.8 %
[2017-12-07] MEDS: Insulin LISPRO 300 UNITS/3 ML VIAL SQ SCH ×2 (08:32→12:23)
[2017-12-07] MEDS ORDERED: Lisinopril 20 MG TABLET PO SCH (09:00)
[2017-12-07] MEDS ORDERED: *HR* Rivaroxaban 10 MG TABLET PO SCH (09:00)
[2017-12-07] MEDS ORDERED: hydroCHLOROthiazide 25 MG TABLET PO SCH (09:00)
[2017-12-07 11:30] VITALS: BP 115/72
--- NOTE | 2017-12-07 12:52 | Discharge Summary ---
- NOTES TO OUTPATIENT PROVIDER Notes to Outpatient Provider: a1c and triglycerides elevated Orders not resulted at time of discharge: Pending orders 12/06/17 13:58 Fecal Hemoccult [Occult Blood,Stool] [BF] Routine 12/08/17 04:00 Complete Blood Count [HEME] AM 0400 Comprehensive Metabolic Panel AM 0400 12/09/17 04:00 Complete Blood Count [HEME] AM 0400 Comprehensive Metabolic Panel AM 0400 Date of Encounter: 12/07/17 Time of Encounter: 10:10 - Discharge Diagnosis (1) Tachycardia Priority: Secondary Status: Resolved Assessment and Plan: Resolved. Pt states that he feels better and is ready to go home. Continue home medications. (2) Hypertension Priority: Secondary Status: Chronic Assessment and Plan: Hx of chronic HTN. Continue pts. Lisinopril and hydrochlorothiazide. Qualifiers: Hypertension type: essential hypertension Qualified Code(s): I10 - Essential (primary) hypertension (3) DVT prophylaxis Priority: Secondary Status: Acute Assessment and Plan: Xarelto (4) Morbid obesity Priority: Secondary Status: Chronic Assessment and Plan: Chronic. Continue lifestyle modifications. (5) History of pulmonary embolism Priority: Secondary Status: Chronic Assessment and Plan: Hx of PE 22 months ago. Pt. denies chest pain, SOB. Continue pts. Xarelto. (6) Anemia Priority: Secondary Status: Chronic Assessment and Plan: Hx of chronic anemia. Stable. Pt. reports small amount of blood in stool d/t rectal irritation from multiple antibiotics. Pt states that the blood is not in his stool, but is from irritation to his anus from wiping frequently from frequent stools. Pt is insistent that it is not in his stool. Will order outpatient H and H in 3 days to follow with PCP. Qualifiers: Anemia type: unspecified type Qualified Code(s): D64.9 - Anemia, unspecified (7) Fibromyalgia Priority: Secondary Status: Chronic Assessment and Plan: Hx of chronic fibromyalgia. Pt believes that he had a flare 3 nights ago which caused his current symptoms that prompted his admission. Continue pts. pain medications. Follow with PCP. (8) Hyperglycemia Priority: Secondary Status: Chronic Assessment and Plan: Acute hyperglycemia. Pt. reports he takes metformin for pre-diabetes. A1c 6.8%, continue home medications. (9) SIRS (systemic inflammatory response syndrome) Priority: Secondary Status: Resolved Assessment and Plan: 12/07- Lactic returned to normal, no leukocytosis, fever, tachycardia, tachypnea, or hypotension. Pt states that he has returned to normal and is ready to be discharged home. Respiratory panel and urine negative. (10) Weakness Priority: Secondary Status: Acute Assessment and Plan: Resolved. Unclear etiology, suspect viral illness vs fibromyalgia flare up, though respiratory infectious panel was negative. Pt has returned to baseline and is stable and requesting to be discharged. (11) HLD (hyperlipidemia) Priority: Secondary Status: Chronic Assessment and Plan: Chronic. Continue home medications. PCP consider addition of another medication for elevated triglycerides. Qualifiers: Hyperlipidemia type: pure hypercholesterolemia Qualified Code(s): E78.00 - Pure hypercholesterolemia, unspecified; E78.0 - Pure hypercholesterolemia (12) Depression Priority: Secondary Status: Chronic Assessment and Plan: Chronic. Continue home medications. Qualifiers: Depression Type: unspecified Qualified Code(s): F32.9 - Major depressive disorder, single episode, unspecified Hospital course: Mr. Mckinley is a 47 year old male with PMH of fibromyalgia, DM, HLD, depressoin, morbid obesity, HTN, DVT. Pt presents with subjective fever, chills, myalgias x 3 days. He met SIRS criteria on admission, but symptoms have resolved and he is back to baseline. He states that he is better and has returned to baseline and is ready to go home. Pt will have H and H drawn in 3 days for anemia. Pt has had anemia since October and has been hospitalized previously for pneumonia for 10 days. He states that he has had some bright red bleeding when he wipes after a BM for several days. He states that the blood is not in his stool and is only there when he wipes. Pt states that he is feeling better and is ready for discharge. Labs and vitals are stable and WNL. Pt will be discharged in stable condition. Discharge discussed with: patient, nurse - Time Spent with Patient Total time spent providing and/or coordinating discharge services: Less than 30 minutes - Discharge Medications Home Medications: DULoxetine [Cymbalta] 60 mg PO DAILY 11/06/17 [History] HYDROcodone/Acet 5/325 mg [[place] 5-325 mg] 1 tab PO Q6H 11/06/17 [History] Hydrochlorothiazide [Microzide] 12.5 mg PO DAILY 11/06/17 [History] Lisinopril [Zestril] 20 mg PO DAILY 11/06/17 [History] Nortriptyline HCl 50 mg PO DAILY 11/06/17 [History] Pravastatin Sodium [Pravachol] 20 mg PO HS 11/06/17 [History] Rivaroxaban [Xarelto] 20 mg PO DAILY 11/06/17 [History] metFORMIN [Glucophage] 500 mg PO DAILY 11/06/17 [History] Lactobacillus Acidophilus [Acidophilus] 1 each PO BID #28 tablet 11/15/17 [Rx] Allergies/Adverse Reactions: 3 Allergy/AdvReac Type Severity Reaction Status Date / Time No Known Allergies Allergy Verified 11/06/17 20:33 Date of admission: 12/06/17 11:34 Primary care physician: Dali Fried CNP Consults: 12/06/17 12:56 Consult to [employer] [CONS] Routine Reason for SW Consult: Please assess patient for possible home needs for post -discharge planning. Discharging clinician: Alma Santos Anticipated date of discharge: 12/07/17 - Constitutional Vitals: Temp Pulse Resp BP Pulse Ox 98 F 92 16 115/72 98 12/07/17 11:29 12/07/17 11:29 12/07/17 11:29 12/07/17 11:29 12/07/17 11:29 General appearance: Present: cooperative, A&O X 3, morbidly obese, pleasant, no acute distress, answers questions appropriately - Head Head exam: Present: atraumatic, normal inspection, normocephalic - Eye Eye exam: Present: normal appearance, conjuntiva pink, sclera anicteric - Neck Neck exam general surgery: Present: normal inspection, supple, trachea midline. Absent: lymphadenopathy, tenderness - Respiratory Respiratory exam: Present: chest wall tenderness, CTAB. Absent: accessory muscle use, rales, respiratory distress, rhonchi, wheezes - Cardiovascular Cardiovascular exam: Present: RRR, +S1, +S2. Absent: diastolic murmur, gallop, rubs, systolic murmur - GI/Abdominal GI/Abdominal exam: Present: normal bowel sounds, soft. Absent: distended, hepatomegaly, tenderness - Extremities Exam Extremities exam: Present: normal capillary refill, normal inspection, warm, radial pulses palpable and symmetrical. Absent: calf tenderness, cyanotic, pedal edema, tenderness - Neurological Exam Neurological exam: Present: alert, oriented X3, no focal deficits. Absent: facial droop, speech deficit - Skin Skin exam: Present: dry, intact, normal color, warm. Absent: rash - Patient Status Disposition: Home, Self-Care Condition: Good Functional capacity at discharge: independent ambulation Overall status at discharge: patient is back to baseline - Discharge Instructions Follow Up With: Wendy Starr MD [Partnered Physician] - 12/09/17 2:45 pm Dali Fried CNP [Primary Care Provider] - Additional Instructions: Please follow up with your PCP in the next 5-7 days. REturn to your normal diet and activities as tolerated. Return to the ER as needed for any other problems or concerns or if your symptoms return or worsen. Have your labs drawn again in 3 days. If you have any worsening bleeding from your rectum, or if you become dizzy, lightheaded, short of breath, or pass out, return to the ER immediately. Take your normal medications as directed and return to your normal diet and activities as tolerated. - Diet and Activity Activity: increase activity as tolerated Diet: diabetic diet, low fat, low cholesterol
--- NOTE | 2017-12-07 18:55 | Electrocardiograph Report ---
[place] [id number] Test Date: 2017-12-06 Pat Name: Hayden Mckinley Department: 103 Room: 3B Gender: M Criminal Defense Lawyer: [facility] : 1970 Requested By: Elena Estrada Order Number: [id number] Reading MD: Eren Doran Measurements Intervals Gage Rate: 106 P: 16 [place]: 142 QRS: 61 QRSD: 96 T: 11 QT: 317 QTc: 379 Interpretive Statements SINUS TACHYCARDIA Electronically Signed On 12-07-2017 18:54:05 EDT by Eren Doran
== END 2017-12-07 15:38 | disposition home or self-care (01) ==
LOC: EMEROO 06:00 → 3BNU 06:00
PROVIDERS: ADMIT Student in an Organized Health Care Education/Training Program; ATTEND Student in an Organized Health Care Education/Training Program

== ENCOUNTER 2020-11-13 23:28 | Inpatient (IN) ==
[2020-11-14] MEDS ORDERED: Isovue-370 500 ML BOTTLE IVP ONE (01:12)
[2020-11-14 01:41] LABS: Basophils % 0.2 %; Hematocrit 36.6 % (37.5-50.1); Hemoglobin 12.2 g/dL (12.9-16.9); Immature Granulocytes % 1.4 % (0-4); Lymphocytes % 11.1 %; Mean Corpuscular HGB Conc 33.3 g/dL (31.6-35.5); Mean Corpuscular Hemoglobin 30.6 pg (28.0-33.3); Mean Corpuscular Volume 91.7 fL (83.0-100.0); Mean Platelet Volume 9.1 fL (9.4-12.4); Monocytes # 0.7 K/mcL (0.0-1.3); Monocytes % 7.1 %; Platelet Count 302 K/mcL (140-400); Red Blood Count 3.99 M/mcL (4.19-5.50); Segmented Neutrophils % 80.2 %; White Blood Count 9.2 K/mcL (4.3-11.1)
[2020-11-14 01:43] LABS: Neutrophils # 7.4 K/mcL (1.6-8.9)
[2020-11-14 01:59] LABS: Platelet Estimate Normal (Normal)
[2020-11-14 02:02] LABS: BUN/Creatinine Ratio 18 (6-26); Blood Urea Nitrogen 19 mg/dL (6-20); Calcium 8.2 mg/dL (8.6-10.3); Carbon Dioxide 27 mEq/L (23-29); Chloride 96 mEq/L (98-107); Glucose 242 mg/dL (70-105); Osmolality,Calculated 284 (280-300); Potassium 4.2 mEq/L (3.5-5.1); Sodium 132 mEq/L (136-145); eGFR For African Americans > 60 (> 60); eGFR For Non-African Americans > 60 (> 60)
[2020-11-14 02:03] LABS: Troponin I < 0.03 ng/mL (< 0.04)
[2020-11-14] MEDS ORDERED: Ipratropium/Albuterol Neb 3 ML IH ONE ×2 (03:37→04:48)
[2020-11-14 04:45] LABS: Adenovirus Not Detected (Not Detect); Coronavirus 229E Not Detected (Not Detect); Coronavirus HKU1 Not Detected (Not Detect); Coronavirus NL63 Not Detected (Not Detect); Coronavirus OC43 Not Detected (Not Detect)
[2020-11-14 04:47] LABS: Bordetella Pertussis Not Detected (Not Detect); Chlamydophila pneumoniae Not Detected (Not Detect); Human Metapneumovirus Not Detected (Not Detect); Human Rhinovirus/Enterovirus Not Detected (Not Detect); Influenza A Subtype 2009 H1 Not Detected (Not Detect); Influenza B Not Detected (Not Detect); Mycoplasma pneumoniae Not Detected (Not Detect); Parainfluenza Virus 1 Not Detected (Not Detect); Parainfluenza Virus 2 Not Detected (Not Detect); Parainfluenza Virus 3 Not Detected (Not Detect); Parainfluenza Virus 4 Not Detected (Not Detect); Respiratory Syncytial Virus Not Detected (Not Detect); SARS-CoV-2 DETECTED (Not Detect)
[2020-11-14] MEDS ORDERED: cefTRIAXone 1,000 MG in 0.9 % Sodium Chloride Mini Bag 100 ML IVPB ONE (05:15)
[2020-11-14] MEDS ORDERED: Azithromycin 500 MG in 0.9 % Sodium Chloride 250 ML IVPB ONE (05:15)
[2020-11-14] MEDS ORDERED: Vasopressin 40 UNIT in D5% in Water 100 ML IVC SCH (05:45)
[2020-11-14] MEDS ORDERED: Ondansetron 4 MG/2 ML VIAL IVP PRN (05:50)
[2020-11-14] MEDS ORDERED: Naloxone 0.4 MG/ML INJ IVP PRN (05:50)
[2020-11-14] MEDS ORDERED: *HR* Enoxaparin 30 MG/0.3 ML SYRINGE SQ SCH (06:00)
[2020-11-14] MEDS: Ipratropium 1 PUFF INHALER IH SCH ×5 (07:47→23:54)
[2020-11-14 08:19] LABS: Troponin I < 0.03 ng/mL (< 0.04)
[2020-11-14] MEDS: *HR* HYDROcodone/Acet 5/325 mg TABLET PO PRN ×2 (12:54→18:58)
[2020-11-14 20:11] LABS: C-Reactive Protein 66 mg/L (Less than 10)
[2020-11-14] MEDS ORDERED: D5% in Water 1,000 ML IVC PRN (22:03)
[2020-11-14] MEDS ORDERED: Dextrose Gel 15 GM/37.5 ML TUBE PO PRN ×2 (22:03)
[2020-11-14] MEDS ORDERED: *HR* Dextrose 50 % in Water (Vial) 50 ML VIAL IVP PRN (22:03)
[2020-11-14] MEDS: Insulin LISPRO 300 UNITS/3 ML VIAL SUBQ SCH (22:57)
[2020-11-15] MEDS: *HR* Rivaroxaban 10 MG TABLET PO SCH ×2 (00:35→17:00)
[2020-11-15] MEDS: *HR* HYDROcodone/Acet 5/325 mg TABLET PO PRN ×4 (00:36→22:17)
[2020-11-15 01:32] LABS: Hematocrit 36.9 % (37.5-50.1); Hemoglobin 12.8 g/dL (12.9-16.9); Mean Corpuscular HGB Conc 34.7 g/dL (31.6-35.5); Mean Corpuscular Hemoglobin 31.2 pg (28.0-33.3); Mean Platelet Volume 9.1 fL (9.4-12.4); Platelet Count 368 K/mcL (140-400); Red Cell Distribution Width 12.1 % (11.5-14.5); White Blood Count 6.7 K/mcL (4.3-11.1)
[2020-11-15 01:59] LABS: BUN/Creatinine Ratio 23 (6-26); Blood Urea Nitrogen 22 mg/dL (6-20); C-Reactive Protein 61 mg/L (Less than 10); Calcium 8.7 mg/dL (8.6-10.3); Carbon Dioxide 23 mEq/L (23-29); Chloride 100 mEq/L (98-107); Glucose 260 mg/dL (70-105); Lactate Dehydrogenase 301 Units/L (140-271); Osmolality,Calculated 290 (280-300); Potassium 4.2 mEq/L (3.5-5.1); Sodium 134 mEq/L (136-145); eGFR For African Americans > 60 (> 60); eGFR For Non-African Americans > 60 (> 60)
[2020-11-15 02:12] LABS: Ferritin 301 ng/mL (20-250)
[2020-11-15] MEDS: Ipratropium 1 PUFF INHALER IH SCH ×6 (04:25→23:56)
[2020-11-15] MEDS: Insulin LISPRO 300 UNITS/3 ML VIAL SUBQ SCH ×4 (07:54→23:02)
[2020-11-15 09:21] LABS: Alanine Aminotransferase 23 Units/L (7-52); Albumin 3.5 g/dL (3.5-5.7); Albumin/Globulin Ratio 1.1 (1.1-2.2); Alkaline Phosphatase 37 Units/L (34-104); Aspartate Amino Transferase 21 Units/L (13-39); Bilirubin,Direct 0.1 mg/dL (0.0-0.2); Bilirubin,Indirect 0.5 mg/dL (0.0-1.0); Bilirubin,Total 0.6 mg/dL (0.3-1.0); Globulin 3.2 g/dL (2.4-3.5); Total Protein 6.7 g/dL (6.4-8.9)
[2020-11-15] MEDS ORDERED: Furosemide 40 MG/4 ML VIAL IVP ONE (11:37)
[2020-11-15] MEDS ORDERED: Remdesivir 200 MG in 0.9 % Sodium Chloride 100 ML IVPB ONE (11:51)
[2020-11-15] MEDS ORDERED: Ondansetron ODT 4 MG TAB.RAPDIS PO PRN (12:17)
[2020-11-15] MEDS ORDERED: Insulin LISPRO 300 UNITS/3 ML VIAL SUBQ ONE (17:35)
[2020-11-16] MEDS: Ipratropium 1 PUFF INHALER IH SCH ×5 (04:16→20:15)
[2020-11-16 07:09] LABS: Albumin 3.4 g/dL (3.5-5.7); Albumin/Globulin Ratio 1.1 (1.1-2.2); Bilirubin,Direct 0.2 mg/dL (0.0-0.2); Bilirubin,Indirect 0.6 mg/dL (0.0-1.0); Bilirubin,Total 0.8 mg/dL (0.3-1.0); Globulin 3.1 g/dL (2.4-3.5); Total Protein 6.5 g/dL (6.4-8.9)
[2020-11-16] MEDS: lisinopriL 20 MG TABLET PO SCH (07:51)
[2020-11-16] MEDS: hydroCHLOROthiazide 25 MG TABLET PO SCH (07:52)
[2020-11-16] MEDS: *HR* HYDROcodone/Acet 5/325 mg TABLET PO PRN ×3 (07:53→21:21)
[2020-11-16] MEDS: Insulin LISPRO 300 UNITS/3 ML VIAL SUBQ SCH ×5 (07:54→21:20)
[2020-11-16] MEDS: Insulin DETEMIR 100 UNIT/ML X5UNITS SUBQ SCH ×2 (09:59→21:21)
[2020-11-16] MEDS: Sennosides/Docusate Sodium TABLET PO SCH ×2 (12:04→21:21)
[2020-11-16] MEDS: Remdesivir 100 MG in 0.9 % Sodium Chloride 100 ML IVPB SCH (12:08)
[2020-11-16] MEDS: *HR* Rivaroxaban 10 MG TABLET PO SCH (17:39)
[2020-11-16] MEDS ORDERED: Insulin Human Regular 10 UNIT in 0.9 % Sodium Chloride 10 ML IV ONE (22:24)
[2020-11-16] MEDS ORDERED: Insulin DETEMIR 100 UNIT/ML X5UNITS SUBQ ONE (22:26)
[2020-11-17] MEDS: Ipratropium 1 PUFF INHALER IH SCH ×6 (00:13→20:22)
[2020-11-17 04:25] LABS: Hematocrit 37.5 % (37.5-50.1); Hemoglobin 12.4 g/dL (12.9-16.9); Mean Corpuscular HGB Conc 33.1 g/dL (31.6-35.5); Mean Corpuscular Hemoglobin 30.1 pg (28.0-33.3); Platelet Count 471 K/mcL (140-400); Red Blood Count 4.12 M/mcL (4.19-5.50); Red Cell Distribution Width 12.4 % (11.5-14.5)
[2020-11-17 04:26] LABS: White Blood Count 11.2 K/mcL (4.3-11.1)
[2020-11-17 04:40] LABS: Albumin 3.4 g/dL (3.5-5.7); Albumin/Globulin Ratio 1.1 (1.1-2.2); BUN/Creatinine Ratio 28 (6-26); Bilirubin,Direct 0.1 mg/dL (0.0-0.2); Bilirubin,Indirect 0.7 mg/dL (0.0-1.0); Bilirubin,Total 0.8 mg/dL (0.3-1.0); Blood Urea Nitrogen 26 mg/dL (6-20); Calcium 8.9 mg/dL (8.6-10.3); Carbon Dioxide 26 mEq/L (23-29); Chloride 100 mEq/L (98-107); Globulin 3.2 g/dL (2.4-3.5); Glucose 211 mg/dL (70-105); Osmolality,Calculated 293 (280-300); Potassium 4.6 mEq/L (3.5-5.1); Sodium 136 mEq/L (136-145); Total Protein 6.6 g/dL (6.4-8.9); eGFR For African Americans > 60 (> 60); eGFR For Non-African Americans > 60 (> 60)
[2020-11-17 05:41] LABS: Anisocytosis 1+ (Not Present); Lymphocytes # 0.7 K/mcL (0.6-4.6); Monocytes # 0.5 K/mcL (0.0-1.3); Neutrophils # 10.1 K/mcL (1.6-8.9); Platelet Estimate Normal (Normal)
[2020-11-17] MEDS: Insulin LISPRO 300 UNITS/3 ML VIAL SUBQ SCH ×6 (08:03→16:58)
[2020-11-17] MEDS: Sennosides/Docusate Sodium TABLET PO SCH ×2 (08:04→22:23)
[2020-11-17] MEDS: lisinopriL 20 MG TABLET PO SCH (08:04)
[2020-11-17] MEDS: hydroCHLOROthiazide 25 MG TABLET PO SCH (08:05)
[2020-11-17] MEDS: Insulin DETEMIR 100 UNIT/ML X5UNITS SUBQ SCH ×2 (08:18→22:22)
[2020-11-17] MEDS: *HR* HYDROcodone/Acet 5/325 mg TABLET PO PRN ×2 (08:19→17:07)
[2020-11-17] MEDS: Remdesivir 100 MG in 0.9 % Sodium Chloride 100 ML IVPB SCH (12:15)
[2020-11-17] MEDS: *HR* Rivaroxaban 10 MG TABLET PO SCH (17:01)
[2020-11-17] MEDS ORDERED: Insulin DETEMIR 100 UNIT/ML X5UNITS SUBQ SCH (21:00)
[2020-11-18] MEDS: Ipratropium 1 PUFF INHALER IH SCH ×3 (00:20→08:17)
[2020-11-18 01:58] LABS: Basophils # 0.1 K/mcL (0.0-0.2); Basophils % 0.9 %; Eosinophils % 0.2 %; Hematocrit 38.5 % (37.5-50.1); Hemoglobin 12.6 g/dL (12.9-16.9); Lymphocytes # 1.8 K/mcL (0.6-4.6); Lymphocytes % 13.8 %; Mean Corpuscular HGB Conc 32.7 g/dL (31.6-35.5); Mean Corpuscular Hemoglobin 29.9 pg (28.0-33.3); Mean Corpuscular Volume 91.2 fL (83.0-100.0); Mean Platelet Volume 8.7 fL (9.4-12.4); Monocytes # 0.9 K/mcL (0.0-1.3); Monocytes % 6.5 %; Neutrophils # 9.7 K/mcL (1.6-8.9); Platelet Count 471 K/mcL (140-400); Red Blood Count 4.22 M/mcL (4.19-5.50); Red Cell Distribution Width 12.4 % (11.5-14.5); Segmented Neutrophils % 73.6 %; White Blood Count 13.2 K/mcL (4.3-11.1)
[2020-11-18 02:09] LABS: Fibrinogen 364 mg/dL (169-393)
[2020-11-18 02:13] LABS: D-Dimer 577 ng/mLFEU (0-500)
[2020-11-18 02:17] LABS: BUN/Creatinine Ratio 28 (6-26); Blood Urea Nitrogen 25 mg/dL (6-20); Carbon Dioxide 28 mEq/L (23-29); Chloride 99 mEq/L (98-107); Glucose 195 mg/dL (70-105); Lactate Dehydrogenase 224 Units/L (140-271); Magnesium 2.1 mg/dL (1.6-2.6); Osmolality,Calculated 290 (280-300); Phosphorous 4.8 mg/dL (2.7-4.5); Potassium 4.2 mEq/L (3.5-5.1); Sodium 135 mEq/L (136-145); eGFR For African Americans > 60 (> 60); eGFR For Non-African Americans > 60 (> 60)
[2020-11-18 02:18] LABS: Albumin 3.3 g/dL (3.5-5.7); Albumin/Globulin Ratio 1.1 (1.1-2.2); Bilirubin,Direct 0.1 mg/dL (0.0-0.2); Bilirubin,Indirect 0.6 mg/dL (0.0-1.0); Bilirubin,Total 0.7 mg/dL (0.3-1.0); Globulin 3.1 g/dL (2.4-3.5); Total Protein 6.4 g/dL (6.4-8.9)
[2020-11-18 02:42] LABS: Ferritin 280 ng/mL (20-250)
[2020-11-18] MEDS: hydroCHLOROthiazide 25 MG TABLET PO SCH (07:48)
[2020-11-18] MEDS: Sennosides/Docusate Sodium TABLET PO SCH (07:48)
[2020-11-18] MEDS: lisinopriL 20 MG TABLET PO SCH (07:48)
[2020-11-18] MEDS: *HR* HYDROcodone/Acet 5/325 mg TABLET PO PRN (07:51)
[2020-11-18] MEDS: Insulin LISPRO 300 UNITS/3 ML VIAL SUBQ SCH ×4 (07:52→12:19)
[2020-11-18] MEDS: Insulin DETEMIR 100 UNIT/ML X5UNITS SUBQ SCH (08:42)
[2020-11-18 11:10] VITALS: BP 139/93
[2020-11-18] MEDS: Remdesivir 100 MG in 0.9 % Sodium Chloride 100 ML IVPB SCH (13:27)
== END 2020-11-18 13:28 | disposition home or self-care (01) | DRG 177 ==
LOC: EMEROOARM 23:28 → 2NNU 23:28 → SUATTDRO 11-14 05:50 → 2NNU 11-14 06:29
PROVIDERS: ADMIT Student in an Organized Health Care Education/Training Program; ATTEND Internal Medicine